=== PATIENT | male | born 1940 | race Caucasian/White ===

== ENCOUNTER 2019-03-09 15:37 | Inpatient (IN) | payer OTHER ==
[2019-03-09] VITALS (14 sets, daily range): BP systolic 90–182; BP diastolic 42–94
[~2019-03-09] VITALS: Ht 172.7 cm; Wt 121.9 kg
[~2019-03-09 15:37] MED LIST: ASPIR 8181 M1 PO; ASPIRIN325 PO; COLACE100 MG PO; COREG25 MG PO; COZAAR 50 MG TA50 M2 PO; CRESTOR10 MG PO; FISH OIL 1,001000 M2; FISH OIL 1,001000 M2 PO; FOLIC ACID0.4 MG PO; HUMALOG100 UNIT/1 SUBQ; LANTUSSOLASTAR SUBQ; LORTAB 5-325 M1 EACH PO; METFORMIN HCL500 MG PO; MIRALAX17 GM PO; MULTIVITAMIN PO; PACERONE 200 M200 M1 PO; VITAMIN B-12500 MCG PO
[2019-03-09] MEDS ORDERED: TRESIBA100 UNIT/1 SUBQ (15:48)
[2019-03-09] MEDS ORDERED: LASIX 40 MG TAB40 M2 PO (15:50)
[2019-03-09] MEDS ORDERED: NORVASC5 MG PO (15:50)
[2019-03-09] MEDS ORDERED: CRESTOR10 MG PO (15:50)
[2019-03-09] MEDS ORDERED: COZAAR 25 MG TA25 M2 PO (15:50)
[2019-03-09] MEDS ORDERED: OXYCODONE HCL 55 MG PO (15:51)
[2019-03-09] MEDS ORDERED: HUMALOG100 UNIT/1 SUBQ (15:52)
[2019-03-09] MEDS ORDERED: ASPIR 8181 M1 PO (15:53)
[2019-03-09] MEDS ORDERED: METFORMIN HCL500 MG PO (15:53)
[2019-03-09 16:04] LABS: ABSOLUTE BASOPHILS 0.1 thou/uL (0.0-0.2); ABSOLUTE EOSINOPHILS 0.3 thou/uL (0.0-0.7); ABSOLUTE MONOCYTES 0.7 thou/uL (0.0-1.2); ABSOLUTE NEUTROPHILS 2.7 thou/uL (1.6-8.1); HEMATOCRIT 33.8 % (42.0-52.0); HEMOGLOBIN 11.8 gm/dL (14.0-18.0); MCH 33.6 pg (26.0-34.0); MCHC 34.9 g/dL (28.0-37.0); MCV 96.1 fL (80.0-100.0); MONOCYTES 12.2 %; MPV 9.6 fl. (7.2-11.1); NUCLEATED RBCS 0 /100WBC; PLATELET COUNT* 194 thou/uL (150-400); POLYS 46.8 %; RBC 3.52 mil/uL (4.50-6.00); RDW-CV 14.8 % (10.5-14.5); WBC 5.8 thou/uL (4.0-11.0)
[2019-03-09 16:08] LABS: ANION GAP 9 mmol/L (7-16); BUN 20 mg/dL (7-18); CALCIUM 8.7 mg/dL (8.5-10.1); CHLORIDE 100 mmol/L (98-107); CO2 27 mmol/L (21-32); CREATININE 1.1 mg/dL (0.6-1.3); GLUCOSE 167 mg/dL (70-99); POTASSIUM 4.3 mmol/L (3.5-5.1); SODIUM 136 mmol/L (136-145)
[2019-03-09 16:15] LABS: PROTIME 10.7 Seconds (9.20-11.50)
[2019-03-09 16:19] LABS: ALBUMIN 3.3 g/dL (3.4-5.0); ALKALINE PHOSPHATASE 78 U/L (46-116); NT-PRO BRAIN NAT PEPTIDE 484 pg/mL (<300); SGOT 39 U/L (15-37); SGPT 42 U/L (30-65); TOTAL BILIRUBIN 0.3 mg/dL (<0.1-1.0); TOTAL PROTEIN 6.3 g/dL (6.4-8.2); TROPONIN-I LEVEL <0.06 ng/mL (<0.06)
[2019-03-09] MEDS ORDERED: UNICOMPLEX M TA1 TA1 PO (18:36)
[2019-03-09] MEDS ORDERED: VITAMIN D1000 UNI1 PO (18:37)
[2019-03-09] MEDS ORDERED: MIRALAX17 GM PO (18:37)
--- NOTE | 2019-03-09 19:38 | NUR ---
PT RECEIVED FROM ER AT 1800, A FIB WITH RATE OF 90s ON THE MONITOR, ALERT AND ORIENTED X4, WALKED UP TO THE BED FROM CART. VOIDED PER URINAL X2. ADMISSION PROCESS COMPLETED. DENIES PAIN.
[2019-03-10] VITALS (34 sets, daily range): BP systolic 104–172; BP diastolic 52–111
--- NOTE | 2019-03-10 06:50 | NUR ---
VSS, O2 SAT REMAINS >92% ON RA. PT AWAKENED EVERY 2-3 HOURS THROUGH THE NIGHT TO URINATE, TOTAL 2L URINE OUT. PT STATES HE USES BIPAP AT HS AT HOME AND HIS NOCTURIA IS SIGNIFICANTLY LESS WHEN HE USING HIS BIPAP. ENCOURAGED PT TO HAVE BRING BIPAP TONIGHT. PT HAS BEEN NPO SINCE MIDNIGHT. CALL LIGHT WITHIN REACH.
[2019-03-10 09:18] LABS: ABSOLUTE BASOPHILS 0.1 thou/uL (0.0-0.2); ABSOLUTE EOSINOPHILS 0.3 thou/uL (0.0-0.7); ABSOLUTE LYMPHOCYTES 1.1 thou/uL (0.8-5.3); ABSOLUTE MONOCYTES 0.5 thou/uL (0.0-1.2); ABSOLUTE NEUTROPHILS 2.6 thou/uL (1.6-8.1); BASOPHILS 1.1 %; EOSINOPHILS 5.9 %; HEMATOCRIT 37.2 % (42.0-52.0); HEMOGLOBIN 13.2 gm/dL (14.0-18.0); LYMPHOCYTES 24.2 %; MCH 33.9 pg (26.0-34.0); MCHC 35.6 g/dL (28.0-37.0); MCV 95.3 fL (80.0-100.0); MONOCYTES 10.4 %; MPV 8.9 fl. (7.2-11.1); NUCLEATED RBCS 0 /100WBC; PLATELET COUNT* 183 thou/uL (150-400); POLYS 58.4 %; RDW-CV 14.8 % (10.5-14.5); WBC 4.5 thou/uL (4.0-11.0)
[2019-03-10 09:32] LABS: ALBUMIN 3.9 g/dL (3.4-5.0); CALCIUM 9.6 mg/dL (8.5-10.1); CREATININE 0.9 mg/dL (0.6-1.3); TOTAL BILIRUBIN 0.4 mg/dL (<0.1-1.0); TOTAL PROTEIN 7.4 g/dL (6.4-8.2)
--- NOTE | 2019-03-10 11:50 | NUR ---
INT ROUNDS: MET WITH PT AND SPOUSE TO DISCUSS HOME SITUATION/DC PLANNING. PT ADMITTED WITH SEIZURE, HAS NEURO CONS. PT UP IN CHAIR, A/O, AT BEDSIDE. THEY LIVE IN [place] AT THE [facility]. PT IS INDEPENDENT WITH ADLS, USES CANE OR ROLLATER WALKER NEEDED. HE HAS HAD HH IN PAST AND BEEN TO SNF IN PAST ALSO. /JANNY IS DPOA. PT PLANS TO RETURN HOME AT DC. WILL FOLLOW
--- NOTE | 2019-03-10 18:52 | NUR ---
CARDIOLOGY CONSULTED, ICU MONITORING TODAY PER DR HALL. VSS. NO BRADYCARDIA. ECHO, EEG, CT HEAD AND MRI HEAD DONE. TOLERATING DIET. GOOD URINE OUTPUT.
[2019-03-11] VITALS (14 sets, daily range): BP systolic 128–175; BP diastolic 60–80
--- NOTE | 2019-03-11 10:10 | NUR ---
INT. ROUNDS: MET WITH PT, TO MOVE OUT OF ICU TODAY, POSSIBLE DC TOMORROW. PT PLANS TO RETURN HOME WITH . DISCUSSED POSSIBLE NEEDS INCLUDING HH, PT DECLINES ANY NEEDS AT THIS TIME. WILL FOLLOW
--- NOTE | 2019-03-11 17:23 | NUR ---
PT A&O X4. VSS. SAT UP IN THE RECLINER THE WHOLE DAY. TOLERATING DIET. BM TODAY. GOOD URINE OUTPUT. UP AD DEVAUGHN.
--- NOTE | 2019-03-11 19:51 | NUR ---
RECEIVED REPORT AND ASSUMED CARE. TRANSPORTED FROM ICU TO ROOM 210. VSS. CARDIAC MONITORING IN PLACE. ORIENTATED TO ROOM, CALL LIGHT, FALL POLICY. HOURLY ROUNDING COMPLETED AND ALL NEEDS MET.
[2019-03-12] VITALS: BP 173/80
[2019-03-12 04:00] VITALS: BP 158/62
--- NOTE | 2019-03-12 05:49 | NUR ---
PT SLEPT MOST OF SHIFT. ASSESSMENT DOCUMENTED. MEDS GIVEN PER E-OCT. IV'S PATENT. NO REPORTS OF PAIN THIS SHIFT. PT UP SBA TO BATHROOM WITH CANE. TELE MONITOR IN PLACE. WILL CONTINUE WITH PLAN OF CARE.
[2019-03-12 08:00] VITALS: BP 170/83
[2019-03-12] MEDS ORDERED: ELIQUIS5 MG PO (11:16)
[2019-03-12 11:19] VITALS: BP 170/83
[2019-03-12] MEDS ORDERED: PROPAFENONE 15150 MG PO (11:19)
--- NOTE | 2019-03-12 11:48 | NUR ---
RECEIVED REPORT FROM SILVIA HANKINS AND ASSUMED CARE OF PT @ 8573.PT IS A/OX4,VSS,TRACING SR WITH BBB ON THE MONITOR.NO C/O PAIN.PT IS CALM AND COOPERATIVE BUT ANXIOUS TO DISCHARGE.PT OK FOR DISCHARGE.DISCHARGE PAPERWORK COMPLETED AND GIVEN TO THE PT.SCRIPTS GIVEN WITH EDUCATION.CARDIOLOGY SAMPLES GIVEN TO PT.IV REMOVED X2.HEART MONITOR REMOVED AND RETURNED TO THE NURSING STATION.ALL PERSONAL BELONGINGS PACKED AND TAKEN WITH PT.PT WHEELED OUT BY NURSING STAFF TO PERSONAL VEHICLE.
== END 2019-03-12 12:09 | disposition home or self-care (01) | DRG 101 ==
LOC: M.ERS 15:37 → M.TBA-ER 16:25 → M.ICU 16:25 → M.2W 03-11 18:01
PROVIDERS: Internal Medicine; Personal Emergency Response Attendant; ADMIT Internal Medicine
DX: R56.9 Unspecified convulsions (principal); E66.9 Obesity, unspecified; M19.90 Unspecified osteoarthritis, unspecified site; E78.5 Hyperlipidemia, unspecified; I48.91 Unspecified atrial fibrillation; N40.0 Benign prostatic hyperplasia without lower urinary tract symptoms; G20 Parkinson's disease; I44.7 Left bundle-branch block, unspecified; I11.9 Hypertensive heart disease without heart failure; G47.33 Obstructive sleep apnea (adult) (pediatric); I49.5 Sick sinus syndrome; I25.10 Atherosclerotic heart disease of native coronary artery without angina pectoris; E11.42 Type 2 diabetes mellitus with diabetic polyneuropathy; I49.9 Cardiac arrhythmia, unspecified; I25.2 Old myocardial infarction; Z95.1 Presence of aortocoronary bypass graft; Z68.41 Body mass index [BMI] 40.0-44.9, adult; Z87.891 Personal history of nicotine dependence; Z85.51 Personal history of malignant neoplasm of bladder; Z85.828 Personal history of other malignant neoplasm of skin; Z85.72 Personal history of non-Hodgkin lymphomas; Z79.4 Long term (current) use of insulin; Z79.82 Long term (current) use of aspirin; Z79.899 Other long term (current) drug therapy; Z88.8 Allergy status to other drugs, medicaments and biological substances; Z82.49 Family history of ischemic heart disease and other diseases of the circulatory system

== ENCOUNTER 2019-03-17 10:14 | Inpatient (IN) | payer OTHER ==
[~2019-03-17] VITALS: Ht 152.4 cm; Wt 120.2 kg
[~2019-03-17 10:14] MED LIST changes: +COZAAR 25 MG TA25 M2 PO; +ELIQUIS5 MG PO; +LASIX 40 MG TAB40 M2 PO; +NORVASC5 MG PO; +OXYCODONE HCL 55 MG PO; +PROPAFENONE 15150 MG PO; +TRESIBA100 UNIT/1 SUBQ; +UNICOMPLEX M TA1 TA1 PO; +VITAMIN D1000 UNI1 PO
[2019-03-17 10:28] VITALS: BP 141/59
[2019-03-17 10:45] LABS: HEMOGLOBIN 12.1 gm/dL (14.0-18.0); MCH 33.4 pg (26.0-34.0); MCHC 34.5 g/dL (28.0-37.0); MCV 96.6 fL (80.0-100.0); MPV 8.6 fl. (7.2-11.1); NUCLEATED RBCS 0 /100WBC; PLATELET COUNT* 188 thou/uL (150-400); RBC 3.63 mil/uL (4.50-6.00); RDW-CV 14.1 % (10.5-14.5); WBC 5.5 thou/uL (4.0-11.0)
[2019-03-17 10:56] LABS: ANION GAP 6 mmol/L (7-16); BUN 27 mg/dL (7-18); CALCIUM 8.8 mg/dL (8.5-10.1); CHLORIDE 99 mmol/L (98-107); CO2 29 mmol/L (21-32); CREATININE 1.4 mg/dL (0.6-1.3); GLUCOSE 132 mg/dL (70-99); POTASSIUM 4.7 mmol/L (3.5-5.1); SODIUM 134 mmol/L (136-145)
[2019-03-17 10:59] LABS: APTT 29.9 Seconds (25.0-31.3); INR 1.1; PROTIME 10.9 Seconds (9.20-11.50)
[2019-03-17 11:07] LABS: ALBUMIN 3.6 g/dL (3.4-5.0); ALKALINE PHOSPHATASE 80 U/L (46-116); LIPASE 160 U/L (73-393); MAGNESIUM 2.8 mg/dL (1.8-2.4); NT-PRO BRAIN NAT PEPTIDE 512 pg/mL (<300); SGOT 19 U/L (15-37); SGPT 32 U/L (30-65); TOTAL BILIRUBIN 0.4 mg/dL (<0.1-1.0); TOTAL PROTEIN 6.7 g/dL (6.4-8.2); TROPONIN-I LEVEL <0.06 ng/mL (<0.06)
[2019-03-17 11:25] LABS: ABSOLUTE EOSINOPHILS 0.3 thou/uL (0.0-0.7); ABSOLUTE LYMPHOCYTES 1.1 thou/uL (0.8-5.3); ABSOLUTE MONOCYTES 0.7 thou/uL (0.0-1.2); ABSOLUTE NEUTROPHILS 3.4 thou/uL (1.6-8.1); PLATELET ESTIMATE ADEQUATE
[2019-03-17 12:02] LABS: CK-MB MASS 1.5 ng/mL (<0.5-3.6)
[2019-03-17 14:38] VITALS: BP 186/82
[2019-03-17 15:20] VITALS: BP 178/84
--- NOTE | 2019-03-17 18:45 | NUR ---
PT ADMITTED FROM ER. AOX4 , 1ST DEGREE AV BLOCK BBB ON ARCHITECT MARINE. HEART RATE IN THE 60S. VS TAKEN . BP 178/84. PT STATES HE HAS TAKEN HIS MORNIGN BP MEDICATIONS THIS AM. PT IS ASYMPTOMATIC. HAD DINER AND HAS GOOD APPETITE. ADMISSION HX AND ASSESSMENT PERFORMED . NS INFUSING AT 100 PER HOUR IN L AC. PT COMPLAINS OF DIZZINESS. FALL PRECAUTION IN PLACE. PLAN FOR PACEMAKER TOMORROW SO PT WILL BE NPO AFTER MIDNIGHT. WILL CONTINUE TO MONITOR
[2019-03-17 20:00] VITALS: BP 183/84
[2019-03-18] VITALS (9 sets, daily range): BP systolic 128–199; BP diastolic 60–98
--- NOTE | 2019-03-18 10:29 | EKG ---
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: : 1940 Requested By: Rai Elias Order Number: [id number] MD: Blair Thompson Measurements Intervals [place] Rate: 40 P: [place]: QRS: -7 QRSD: 186 T: 108 QT: 545 QTc: 445 Interpretive Statements Junctional rhythm Left bundle branch block Compared to ECG 03/11/2019 09:19:56 Junctional rhythm now present Sinus rhythm no longer present First degree AV block no longer present Electronically Signed On 03-18-2019 10:29:02 CDT by Blair Thompson [email or web address] <ELECTRONICALLY SIGNED> By: Blair Thompson MD, FACC 03/18/19 1029 1047 1047 Blair Thompson MD, [facility] /EPI
--- NOTE | 2019-03-18 13:20 | NUR ---
Pt is A&O. Resides at home with . Independent. Pt has a walker and cane that he uses for mobility, dependent upon where he is and how the room is set up. Pt has a bipap through [facility] Pt. Hx of HH, does not recall the name of the agency. Hx of acute rehab. No hx of SNF. Goal is home at tn, no needs anticipated.
--- NOTE | 2019-03-18 15:49 | NUR ---
ASSUMED CARE OF PT AROUND 0730 THIS AM. REFER TO ASSESSMENT. PT NPO TODAY FOR PACEMAKER PLACEMENT. CURRENTLY AT APPLICATION OPERATIONS ENGINEER/ IR AT THIS TIME. NO EPISODES OF BRADYCARDIA OR LIGHTHEADEDNESS THIS SHIFT. NO OTHER CONCERNS AT THIS TIME. CLWR. WCTM.
--- NOTE | 2019-03-18 17:16 | CARD ---
[address] [address] CARDIAC CATH REPORT Name: SORAIDA BELTRAN Room: [address] IN [facility]#: [id number] Admission: 03/17/19 Attend Phys: Lázaro Ponce Discharge: Date of : 40 Report #: [id number] THIS REPORT FOR: //name// APPROVED REPORT Study performed: 03/18/2019 14:56:30 Patient Status: In-Patient Room #: Event Personnel: Blair Thompson Preparole Counseling Aide, Richa Cantor RN RN, Gonzalo KyleIS Monitor, Lynette Rizo RTR Scrub Exam: Insertion of Dual Chamber Permanent Pacemaker Indications: Sick Sinus Syndrome/Tachy Talha Syndrome The patient is a 78 year-old male with a history of Sick Sinus Syndrome. Conscious Sedation Fentanyl 75 mcg PPM inserted Implanted Devices: [employer] Systemsroni[employer]Matic Eluna 8 DRT pro-MRI, model #658534, serial #[id number] dual-chamber pulse generator. Biotronik Solia S 60, model #239803, serial #[id number] particularly. Biotronik Solia S 53, model #072667, serial #[id number] atrial lead. Procedure The patient underwent informed consent. We discussed the details of the procedure including the risks, which include, but not limited to bleeding, infection, vascular damage, cardiac perforation, and pneumothorax. After informed consent was obtained the area of the left chest was prepped and draped in sterile fashion. Local anesthesia was achieved with 1% lidocaine. Next after an initial incision was made a device pocket was formed over the left pectoralis muscle using electrocautery and blunt dissection. Next using a micropuncture kit the left subclavian vein was accessed. A safety J guidewire was advanced the area of the right atrium under fluoroscopic guidance. A single stick technique was utilized and a second safety J guidewire placed. A tear-away introducer was advanced over one of the guidewires. The other guidewire was externally fixed with a Aleta forcep. The dilator and guidewire were removed and the ventricular lead advanced to the right ventricle under fluoroscopic guidance. The lead was actively fixed. Thresholds were checked [place] [address] CARDIAC CATH REPORT Name: SORAIDA BELTRAN Room: [address] IN [facility]#: [id number] Admission: 03/17/19 Attend Phys: Lázaro Ponce Discharge: Date of : 40 Report #: [id number] satisfactory. There was no diaphragmatic pacing with maximum output pacing. Next a second tear-away introducer was advanced over the remaining guidewire. The dilator and guidewire were removed and an atrial lead advanced to an area lateral wall of the right atrium. The lead was actively fixed. Thresholds were checked and deemed to be satisfactory. There was no phrenic nerve stimulation with maximum output pacing. The tear-away issues was then removed. Once adequate slack was assured in both the atrial and ventricular leads and leads were then secured within the device pocket using the designated cuff and 0 silk suture in interrupted stitches. The device pocket was then flushed with antibiotic solution. Next a dual-chamber pulse generator was attached to the atrial and ventricular leads. The pulse generator and redundant leads were then placed within the device pocket. The deep tissues were closed with interrupted stitches of 2-0 Vicryl. The skin incision was then closed with a single subcuticular stitch of 4-0 Vicryl. Several Steri-Strips were placed across the incision. A sterile Telfa dressing was then covered with a Tegaderm. Patient was returned to his room in stable condition. Electrode Parameters P Wave: 1.6 mV R Wave: 10.5 mV Atrial Threshold: 1.0 V at 0.40 ms. Ventricular Threshold: 0.8 V at 0.40 ms. Atrial Resistance: 468 ohms. Ventricular Resistance: 702 ohms. Conclusion 1. Sick sinus syndrome. 2. Successful placement of a dual-chamber pacemaker with atrial and ventricular lead placement. Recommendations 1. Follow-up site check in one week. 2. Follow-up with device interrogation 2 months. <ELECTRONICALLY SIGNED> By: Blair Thompson MD, FACC 03/18/19 1715 14 171Michaerod Thompson MD, FACC /INF
--- NOTE | 2019-03-18 17:50 | NUR ---
PT BACK TO FLOOR FROM PACEMAKER PLACEMENT AT 1655.
[2019-03-19] VITALS: BP 199/90
[2019-03-19 04:00] VITALS: BP 158/69
[2019-03-19 08:00] VITALS: BP 155/71
[2019-03-19 12:23] VITALS: BP 155/71
[2019-03-19] MEDS ORDERED: ONDANSETRON HCL4 M2 PO (12:56)
[2019-03-19] MEDS ORDERED: COREG6.25 MG PO (13:02)
--- NOTE | 2019-03-19 13:28 | NUR ---
ASSUMED PT CARE REPORT RECEIVED FROM NURSE.PT IS AOX4 SR BBB ON RETAIL ATTENDANT. ON RA. PT OUT TO BED TO CHAIR. ARM SLING IN PLACE. NO COMPLAINT. DISCHARGE ORDER RECEIVED. DISCHARGE INSTRUCTION SOY. PT LEFT FLOOR AT 1325 ACCOMPANIED BY AND VOLUNTEER. WILL CONTINUE TO MONITOR
--- NOTE | 2019-03-20 09:02 | EKG ---
[place] [address] ELECTROCARDIOGRAM REPORT Name: SORAIDA BELTRAN Room: [address] DIS IN M.R.#: [id number] Admission: 03/17/19 Attend Phys: Lázaro Ponce Discharge: 03/19/19 Date of : 40 Report #: [id number] THIS REPORT FOR: //name// [facility] Test Date: 2019-03-19 Test Time: 05:30:19 Pat Name: SORAIDA BELTRAN Department: Room: [address] Gender: M Exercise Physiologist Certified: [id number] : 1940 Requested By: Blair Thompson Order Number: [id number] MD: Blair Thompson Measurements Intervals [place] Rate: 77 P: 44 GA: 206 QRS: 16 QRSD: 174 T: 90 QT: 453 QTc: 513 Interpretive Statements Sinus rhythm Left bundle branch block Compared to ECG 03/17/2019 10:47:42 Heart rate improved Electronically Signed On 03-20-2019 9:02:46 CDT by Blair Thompson [email or web address] <ELECTRONICALLY SIGNED> By: Blair Thompson MD, [facility] 03/20/19 0902 0530 0530 Blair Thompson MD, [facility] /EPI
== END 2019-03-19 13:23 | disposition home or self-care (01) | DRG 243 ==
LOC: M.ERS 10:14 → M.2W 11:19 → M.TBA-ER 11:19 → M.2W 14:53
PROVIDERS: Family Medicine; ADMIT Internal Medicine
PROC: 02HK3JZ Insertion of Pacemaker Lead into Right Ventricle, Percutaneous Approach (ICD-10-PCS; principal; 2019-03-18)
PROC: 02H63JZ Insertion of Pacemaker Lead into Right Atrium, Percutaneous Approach (ICD-10-PCS; principal; 2019-03-18)
PROC: 0JH606Z Insertion of Pacemaker, Dual Chamber into Chest Subcutaneous Tissue and Fascia, Open Approach (ICD-10-PCS; principal; 2019-03-18)
DX: I49.5 Sick sinus syndrome (principal); N17.9 Acute kidney failure, unspecified; D68.59 Other primary thrombophilia; J98.11 Atelectasis; I48.0 Paroxysmal atrial fibrillation; I44.7 Left bundle-branch block, unspecified; G20 Parkinson's disease; I10 Essential (primary) hypertension; M19.90 Unspecified osteoarthritis, unspecified site; E11.42 Type 2 diabetes mellitus with diabetic polyneuropathy; I25.10 Atherosclerotic heart disease of native coronary artery without angina pectoris; E78.5 Hyperlipidemia, unspecified; N40.0 Benign prostatic hyperplasia without lower urinary tract symptoms; Z86.73 Personal history of transient ischemic attack (TIA), and cerebral infarction without residual deficits; Z79.84 Long term (current) use of oral hypoglycemic drugs; Z85.51 Personal history of malignant neoplasm of bladder; Z85.828 Personal history of other malignant neoplasm of skin; Z79.82 Long term (current) use of aspirin; Z79.4 Long term (current) use of insulin; Z79.899 Other long term (current) drug therapy; Z88.8 Allergy status to other drugs, medicaments and biological substances; Z95.1 Presence of aortocoronary bypass graft; Z82.49 Family history of ischemic heart disease and other diseases of the circulatory system; Y92.89 Other specified places as the place of occurrence of the external cause

== ENCOUNTER 2019-03-21 12:26 | Inpatient (IN) | payer OTHER ==
[~2019-03-21] VITALS: Ht 172.7 cm; Wt 120.4 kg
[~2019-03-21 12:26] MED LIST changes: +COREG6.25 MG PO; +ONDANSETRON HCL4 M2 PO
[2019-03-21 12:32] VITALS: BP 157/76
[2019-03-21 13:06] LABS: ABSOLUTE BASOPHILS 0.1 thou/uL (0.0-0.2); ABSOLUTE EOSINOPHILS 0.4 thou/uL (0.0-0.7); ABSOLUTE MONOCYTES 0.7 thou/uL (0.0-1.2); ABSOLUTE NEUTROPHILS 4.5 thou/uL (1.6-8.1); BASOPHILS 0.9 %; EOSINOPHILS 5.7 %; HEMATOCRIT 36.2 % (42.0-52.0); HEMOGLOBIN 12.4 gm/dL (14.0-18.0); LYMPHOCYTES 15.5 %; MCH 33.4 pg (26.0-34.0); MCHC 34.2 g/dL (28.0-37.0); MCV 97.6 fL (80.0-100.0); MONOCYTES 10.7 %; MPV 9.5 fl. (7.2-11.1); NUCLEATED RBCS 0 /100WBC; PLATELET COUNT* 205 thou/uL (150-400); POLYS 67.2 %; RBC 3.71 mil/uL (4.50-6.00); RDW-CV 14.2 % (10.5-14.5); WBC 6.7 thou/uL (4.0-11.0)
[2019-03-21 13:13] LABS: ANION GAP 10 mmol/L (7-16); BUN 43 mg/dL (7-18); CALCIUM 8.7 mg/dL (8.5-10.1); CHLORIDE 96 mmol/L (98-107); CO2 27 mmol/L (21-32); CREATININE 1.9 mg/dL (0.6-1.3); GLUCOSE 156 mg/dL (70-99); POTASSIUM 4.8 mmol/L (3.5-5.1); SODIUM 133 mmol/L (136-145)
[2019-03-21 13:24] LABS: ALBUMIN 3.8 g/dL (3.4-5.0); ALKALINE PHOSPHATASE 83 U/L (46-116); LIPASE 153 U/L (73-393); MAGNESIUM 3.1 mg/dL (1.8-2.4); NT-PRO BRAIN NAT PEPTIDE 318 pg/mL (<300); SGOT 20 U/L (15-37); SGPT 23 U/L (30-65); TOTAL BILIRUBIN 0.7 mg/dL (<0.1-1.0); TOTAL PROTEIN 7.1 g/dL (6.4-8.2); TROPONIN-I LEVEL <0.06 ng/mL (<0.06)
--- NOTE | 2019-03-21 14:47 | NUR ---
NURSE TO NURSE REPORT GIVEN TO NHI JEWELL WHO IS TO ASSUME PT CARE INPATIENT NURSE.
[2019-03-21 14:48] VITALS: BP 140/64
[2019-03-21 15:10] VITALS: BP 139/65
--- NOTE | 2019-03-21 15:13 | EKG ---
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 Operator: [facility] : 1940 Requested By: Epifanio Soliman Order Number: [id number] MD: Steve Brown Measurements Intervals [place] Rate: 85 P: 214 HI: 197 QRS: 89 QRSD: 192 T: -35 QT: 447 QTc: 532 Interpretive Statements Sinus or ectopic atrial rhythm LBBB Prolonged QT interval Compared to ECG 03/19/2019 05:30:19 Ectopic atrial rhythm now present Prolonged QT interval now present Electronically Signed On 03-21-2019 15:13:32 CDT by Steve Brown [email or web address] <ELECTRONICALLY SIGNED> By: Steve Brown MD, [facility] 03/21/19 1513 1237 1237 Steve Brown MD, [facility] /EPI
[2019-03-21 15:30] VITALS: BP 139/65
--- NOTE | 2019-03-21 15:45 | NUR ---
TO IR VIA BED
[2019-03-21 16:34] VITALS: BP 154/71
--- NOTE | 2019-03-21 16:34 | NUR ---
PATIENT RETURNING FROM IR VIA BED. CHEST TUBE IN PLACE TO LEFT CHEST - CONNECTED TO PLUERAL VAC ATRIUM, CONNECTED TO 20 CM WALL SUCTION. NO SIGN OF RESPIRATORY DISTRESS - 02 ON 3L PER NC - 02 SAT 98%. HOB ELEVATED, CALL LIGHT WITHIN REACH.
[2019-03-21 20:00] VITALS: BP 146/63
[2019-03-22] VITALS: BP 142/61
--- NOTE | 2019-03-22 03:01 | NUR ---
ASSUMED PT CARE AT APPROX 1930. PT IS AWAKE AND ORIENTED X4. VSS ON 3L OF O2. WITH PACED VENTRICULR COMPLEXES ON TELE. ASSESSMENT DONE AND CHARTED. LEFT LOWER CHEST TUBE IN PLACE CONNECTED TO ATRIUM, WITH -20 WALL SUCTION, INTACT AND WITH INTERMITTENT TIDALLING NOTED. NO OUTPUT SEEN THIS SHIFT. PT DENIES PAIN. CALL LIGHT WITHIN REACH. FALL PRECAUTIONS IN PLACE. HOURLY ROUNDING DONE FOR PT SAFETY.
[2019-03-22 03:51] VITALS: BP 149/70
[2019-03-22 04:42] LABS: HEMATOCRIT 30.2 % (42.0-52.0); HEMOGLOBIN 10.6 gm/dL (14.0-18.0); MCH 34.1 pg (26.0-34.0); MCV 97.3 fL (80.0-100.0); MPV 9.4 fl. (7.2-11.1); RBC 3.1 mil/uL (4.50-6.00); RDW-CV 14.6 % (10.5-14.5); WBC 5.2 thou/uL (4.0-11.0)
[2019-03-22 04:54] LABS: CALCIUM 8.6 mg/dL (8.5-10.1); CREATININE 1.4 mg/dL (0.6-1.3); POTASSIUM 4.3 mmol/L (3.5-5.1)
--- NOTE | 2019-03-22 07:15 | NUR ---
CHANGE OF SHIFT BEDSIDE REPORT GIVEN PATIENT SEEN AT BEDSIDE IN BED WATCHING TV ASSUMED PATIENT CARE
[2019-03-22 08:04] VITALS: BP 155/64
--- NOTE | 2019-03-22 09:45 | NUR ---
PATIENT CHANGED TO [place] STATUS HEART MONITOR REMOVED
--- NOTE | 2019-03-22 10:15 | NUR ---
MET WITH PT TO DISCUSS HOME SITUATION/DC PLANNING. PT KNOWN TO CM, IS 3RD ADMIT THIS MONTH. WAS JUST DC'D 03/19 AFTER PACEMAKER PLACEMENT, READMITTED WITH PNEUMOTHORAX. PT LIVE WITH AT THE [facility] IN [facility]. HE IS FAIRLY INDEPENDENT, USES CANE OR WALKER, BIPAP THRU [facility] PAT[facility]. PT HAS HAD HH IN PAST. DENIES NEEDS AT THIS TIME, PLANS TO RETURN HOME WITH AT [place]. WILL FOLLOW
[2019-03-22 15:46] VITALS: BP 173/73
[2019-03-22 20:00] VITALS: BP 158/78
[2019-03-23] VITALS: BP 145/73
--- NOTE | 2019-03-23 02:49 | NUR ---
ASSUMED PT CARE AT APPROX 1930. PT IS AWAKE AND ORIENTED X4. VSS ON 3L/NC. TITRATED O2 TO 1L/NC, NO DESATURATIONS NOTED. LEFT LOWER LUNG CHEST TUBE INTACT CONNECTED TO ATRIUM WITH SMALL SEROUS OUTPUT. PT DENIES PAIN. PT IS ABLE TO SLEEP MOST OF THE NIGHT. CALL LIGHT WITHIN REACH. HOURLY ROUNDING DONE FOR PT SAFETY.
[2019-03-23 08:25] VITALS: BP 177/83
--- NOTE | 2019-03-23 09:00 | NUR ---
ASSUMED CARE AFTER REPORT AT 0730. A&OX4, ABLE TO COMMUNICATE NEEDS TO STAFF. MED/SURG STATUS. PACEMAKER INCISION SITE C/D/I COVERED WITH STERI STRIPS. NO C/O PAIN, NAUSEA, SOA OR OTHER DISTRESS. UP WITH ASSIST. CALL LIGHT IN REACH. HOURLY ROUNDING FOR SAFETY AND PATIENT NEEDS.
[2019-03-23 12:24] VITALS: BP 165/83
[2019-03-23 16:00] VITALS: BP 158/71
[2019-03-23 19:45] VITALS: BP 180/70
[2019-03-24] VITALS: BP 150/69
[2019-03-24 04:00] VITALS: BP 172/76
--- NOTE | 2019-03-24 06:58 | NUR ---
PATIENT PROGRESSING TOWARDS GOALS: PATIENT DENIES PAIN AND SHORTNESS OF AIR. CHEST XRAY COMPLETED, REFER TO RESULTS. CHEST TUBE IN PLACE, WATER SEAL. DRESSING C/D/I. PATIENT ANTICIPATING DC OF THE CHEST TUBE TODAY. CALL LIGHT WITHIN REACH
[2019-03-24 08:00] VITALS: BP 177/85
--- NOTE | 2019-03-24 08:00 | NUR ---
ASSUMED PT CARES AT 0730, PT IS NOTED TO BE RESTING IN BED WITH CALL LIGHT IN REACH. PT EXPRESSES WANTING TO GET MORNING MEDS AND BE DISCHARGED RIGHT AWAY. PT IS A/OX4, DENIES AND PAIN OR DISCOMFORT. NO SOA, CHEST TUBE SITE APPEARS DRY AND INTACT. WILL MONITOR THIS SHIFT
--- NOTE | 2019-03-24 10:17 | CON ---
[address] [address] CONSULTATION Name: SORAIDA BELTRAN Room: [address] IN M.R.#: [id number] Admission: 03/21/19 Attend Phys: Soraida Day MD Discharge: Date of : 40 Report #: [id number] THIS REPORT FOR: //name// CC: Rafa Thompson REASON FOR CONSULTATION: Pneumothorax. HISTORY OF PRESENT ILLNESS: This is a 78-year-old male patient who actually was at this facility recently when he was admitted with dizziness. Last Sunday, he required permanent pacemaker, placed by Cardiology because of symptomatic bradycardia. Per the record, access was difficult. A followup chest x-ray following the procedure showed small left pneumothorax. He was asymptomatic. He was discharged home; however, a couple of days later, he became really short of breath and came back to the ER. He tells me that it was difficult for him to ambulate. He was short of breath, although no cough. He has a remote history of smoking, but does not wear oxygen or use inhalers at home. In the ER, he had increased left-sided pneumothorax. He underwent placement of small caliber chest tube by IR. The pneumothorax actually had expanded. This morning, he looks comfortable. He remains on 2 liter oxygen. He denied any chest pain. The chest tube was connected to suction. No air leak was noted in the chest tube. Please note, he has a past medical history of AFib, diabetes mellitus, hyperlipidemia, hypertension, coronary artery disease, status post CABG. He denied any recent trauma. He denied any previous similar episodes. ALLERGIES: METOPROLOL, BEATA INHIBITORS. MEDICATIONS: He is on folic acid, aspirin, losartan, insulin, Colace, amlodipine, Crestor, Lasix, multivitamin, Coreg. FAMILY HISTORY: Positive for heart disease, coronary artery disease. REVIEW OF SYSTEMS: GENERAL: He denied fever, chills, diaphoresis. HEAD AND NECK: He denied dizziness, headache, blurring of vision. RESPIRATORY: As above. CARDIOVASCULAR: He has no chest pain. No edema, no palpitation. GASTROINTESTINAL: He denied abdominal pain, nausea or vomiting, change in bowel habits, bleeding from any orifice. GENITOURINARY: He denied any dysuria, frequency, urgency. MUSCULOSKELETAL: He denied any deformity, leg pains or calf pain. All systems reviewed with the patient and negatives as mentioned above. PAST MEDICAL HISTORY: Includes diabetes mellitus, hypertension, obstructive sleep apnea, hyperlipidemia, history of stroke, history of bladder cancer, skin cancer. He has large cell lymphoma, peripheral neuropathy, Parkinson's, [place] [address] CONSULTATION Name: SORAIDA BELTRAN Room: [address] IN ..#: [id number] Admission: 03/21/19 Attend Phys: Soraida Day MD Discharge: Date of : 40 Report #: [id number] apnea. PAST SURGICAL HISTORY: Includes pacemaker as mentioned above. SOCIAL HISTORY: He has remote smoking history, does not drink alcohol excessively. Does not abuse drugs. PHYSICAL EXAMINATION: VITAL SIGNS: He was on 2 L oxygen with saturation more than 90%, at 96%, blood pressure 149/70, breathing 20 times per minute, pulse rate 66, and temperature 37. GENERAL: Comfortable, lying in bed, no distress. Speaks in full sentences. Speech is clear. HEENT: Head normocephalic, atraumatic. EYES: Pupils are reactive to light. ORAL CAVITY: Moist mucous membrane. Mallampati of 2-3. NECK: Supple. Full range of movement. Trachea central. No palpable lymph node. CHEST: Air movement heard bilaterally equally. No subcutaneous emphysema noted. He has left-sided chest tube in place, no air leak. HEART: S1, S2, no murmur. ABDOMEN: Obese, soft, lax, benign, nontender. Positive bowel sounds. No masses felt, no rebound, no rigidity. EXTREMITIES: Lower extremity, no edema, no calf tenderness. NEUROLOGIC: Moving 4 extremities spontaneously. No focal weakness. Cranial nerves grossly normal. SKIN: Normal for age and race, no rash. LYMPHATICS: No palpable lymph node. LABORATORY DATA: His initial chest x-ray upon presentation to the ER, showed large left-sided pneumothorax, described as moderate, although increased from the previous chest x-ray. He underwent chest tube placement per IR. A followup chest x-ray this morning showed resolution of the pneumothorax. IMPRESSION: 1. Left-sided pneumothorax. 2. Status post small caliber chest tube placement. 3. Status post pacemaker placement. 4. History of diabetes mellitus. 5. Hypertension. 6. Atrial fibrillation. PLAN: He had a small caliber chest tube placed by IR. I would keep the chest tube under suction for today. Keep oxygen flow. Repeat chest x-ray in the morning. If stable, we will consider water seal. Depending on the finding of the chest x-ray in the coming few days, will decide about taking the chest tube [address] [address] CONSULTATION Name: RUBYSOARIDA Klein Room: [address] [facility] IN M.R.#: [id number] Admission: 03/21/19 Attend Phys: Soraida Day MD Discharge: Date of : 40 Report #: [id number] out. Meanwhile, I would continue the pain management. We will continue to follow along with you. Thank you for the consult. <ELECTRONICALLY SIGNED> By: Carina Laws MD 03/24/19 1017 0731 [id number] Laws MD /leonora
[2019-03-24 12:04] VITALS: BP 196/93
[2019-03-24 16:00] VITALS: BP 189/88
--- NOTE | 2019-03-24 18:46 | NUR ---
PT HAD CT SCAN AM OF THIS SHIFT, CHEST TUBE SITE DRESSING IS DRY AND INTACT. PT REMAINS COMPLIAN WITH CARES, CONTINUES TO REST, STATES HE WOULD LIKE TO GO HOME. PT IS ABLE TO MAKE NEEDS KNOWN. PT DENIES PAIN OR DISCOMFORT THIS SHIFT. CALL LIGHT IS IN REACH.
[2019-03-24 19:45] VITALS: BP 172/83
[2019-03-25] VITALS (7 sets, daily range): BP systolic 107–171; BP diastolic 59–81
--- NOTE | 2019-03-25 05:06 | NUR ---
PATIENT PROGRESSING TOWARDS GOALS: PATIENT DENIES SHORTNESS OF AIR AND PAIN THIS SHIFT. O2 SATURATION MAINTAINED >92% ON 2L O2 NC. CHEST TUBE REMAINS TO LLL, TO SUCTION. MINIMAL SEROUS DRAINAGE NOTED THIS SHIFT. PATIENT IS EAGER TO GET CHEST TUBE DISCONTINUED AND BE DISCHARGED HOME. REASSURANCE AND COMFORT PROVIDED. PATIENT VERBALIZES UNDERSTANDING OF SITUATION AND TREATMENT. CALL LIGHT WITHIN REACH
--- NOTE | 2019-03-25 07:20 | NUR ---
CHANGE OF SHIFT, BEDSIDE REPORT GIVEN PATIENT SEEN AT BEDSIDE, IN BED ASLEEP ASSUMED PATIENT CARE
--- NOTE | 2019-03-25 11:39 | NUR ---
Plan dc to home tomorrow, no needs anticipated.
[2019-03-26] VITALS: BP 167/76
[2019-03-26 04:00] VITALS: BP 175/82
--- NOTE | 2019-03-26 06:27 | NUR ---
ASSUMED CARE OF PT AFTER REPORT AT 1930. PT A&OX4. VSS. PHYSICAL ASSESSMENT COMPLETED AND CHARTED. PT ON O2 AT 2L NC. PT TRACING SR/1ST DEG/BBB ON TELE. PT UPSTANDBY. CHEST TUBE MAINATINED CLAMPED. DENIES ANY PAIN OR SOA. PT ABLE TO SLEEP WELL ON BED. CALL LIGHT WITHIN REACH.
[2019-03-26 08:00] VITALS: BP 129/75
[2019-03-26] MEDS ORDERED: CARVEDILOL12.5 MG PO (10:05)
--- NOTE | 2019-03-26 11:42 | NUR ---
Pt discharging to home today, outpt PT orders faxed to [facility] outpt rehab. in room.
[2019-03-26 12:23] VITALS: BP 148/71
[2019-03-26 14:08] VITALS: BP 169/78
--- NOTE | 2019-03-26 16:00 | NUR ---
ASSUMED PT CARE AT 0730, FULL ASSESMENT DONE CHARTED. PT A/O X4, DENIES PAIN, DENIES SOA. PT ON 2L O2 THIS AM SATS WERE 100%. REMOVED O2 WITH RECHECK AT 98%. PT UP AD DEVAUGHN WITH MINIMAL ASSISTANCE IN AND OUT OF BED. CHEST TUBE TO LEFT FLANK CLAMMPED. TRAVEL NURSE REMOVED IT LATE MORNING. PT TOLERATED WELL. CHEST X RAY DONE AND RESULTS COMMUNICATED TO PHYSICIAN. DISCHARGE ORDERS RECEIVED. REVIEWED THE DISCHARGE ORDERS WITH PT AND , BOTH VERBALIZED UNDERSTANDING. PT LEFT UNIT WITH AND BELONGINGS.
== END 2019-03-26 14:35 | disposition home or self-care (01) | DRG 199 ==
LOC: M.ERS 12:26 → M.2W 13:51 → M.TBA-ER 13:51 → M.2W 15:09
PROVIDERS: Emergency Medicine; ADMIT Internal Medicine
PROC: 0W9B30Z Drainage of Left Pleural Cavity with Drainage Device, Percutaneous Approach (ICD-10-PCS; principal; 2019-03-21)
DX: S27.0XXA Traumatic pneumothorax, initial encounter (principal); N17.0 Acute kidney failure with tubular necrosis; I10 Essential (primary) hypertension; E78.5 Hyperlipidemia, unspecified; M19.90 Unspecified osteoarthritis, unspecified site; N40.0 Benign prostatic hyperplasia without lower urinary tract symptoms; E11.42 Type 2 diabetes mellitus with diabetic polyneuropathy; G20 Parkinson's disease; I48.91 Unspecified atrial fibrillation; G47.33 Obstructive sleep apnea (adult) (pediatric); I25.10 Atherosclerotic heart disease of native coronary artery without angina pectoris; Z95.0 Presence of cardiac pacemaker; Z86.73 Personal history of transient ischemic attack (TIA), and cerebral infarction without residual deficits; Z85.828 Personal history of other malignant neoplasm of skin; Z95.1 Presence of aortocoronary bypass graft; Z85.51 Personal history of malignant neoplasm of bladder; Z85.72 Personal history of non-Hodgkin lymphomas; Z79.4 Long term (current) use of insulin; Z79.82 Long term (current) use of aspirin; Z79.899 Other long term (current) drug therapy; Z88.8 Allergy status to other drugs, medicaments and biological substances; Z82.49 Family history of ischemic heart disease and other diseases of the circulatory system; X58.XXXA Exposure to other specified factors, initial encounter; Y93.89 Activity, other specified; Y92.89 Other specified places as the place of occurrence of the external cause; Y99.8 Other external cause status

== ENCOUNTER 2019-04-28 18:03 | Emergency (ER) | payer OTHER ==
[~2019-04-28] VITALS: Ht 172.7 cm; Wt 122.5 kg
[~2019-04-28 18:03] MED LIST changes: +CARVEDILOL12.5 MG PO
[2019-04-28] MEDS ORDERED: KEFLEX500 M1 PO (19:20)
[2019-04-28] MEDS ORDERED: CENTANY30 GM TOP (19:20)
[2019-04-28 19:45] VITALS: BP 148/88
== END 2019-04-28 19:47 | disposition home or self-care (01) ==
LOC: M.ERS 18:03
DX: S80.812A Abrasion, left lower leg, initial encounter (principal); L03.116 Cellulitis of left lower limb; I10 Essential (primary) hypertension; M19.90 Unspecified osteoarthritis, unspecified site; E78.5 Hyperlipidemia, unspecified; G47.30 Sleep apnea, unspecified; E11.42 Type 2 diabetes mellitus with diabetic polyneuropathy; Z86.73 Personal history of transient ischemic attack (TIA), and cerebral infarction without residual deficits; Z85.51 Personal history of malignant neoplasm of bladder; Z85.828 Personal history of other malignant neoplasm of skin; Z79.4 Long term (current) use of insulin; Z88.8 Allergy status to other drugs, medicaments and biological substances; X58.XXXA Exposure to other specified factors, initial encounter; Y93.89 Activity, other specified; Y92.89 Other specified places as the place of occurrence of the external cause; Y99.8 Other external cause status

== ENCOUNTER 2019-05-01 15:28 | Emergency (ER) | payer OTHER ==
[~2019-05-01] VITALS: Ht 172.7 cm; Wt 122.5 kg
[~2019-05-01 15:28] MED LIST changes: +CENTANY30 GM TOP; +KEFLEX500 M1 PO
[2019-05-01 17:30] LABS: ABSOLUTE BASOPHILS 0.1 thou/uL (0.0-0.2); ABSOLUTE EOSINOPHILS 0.4 thou/uL (0.0-0.7); ABSOLUTE NEUTROPHILS 3.2 thou/uL (1.6-8.1); MCH 33.4 pg (26.0-34.0); NUCLEATED RBCS 0 /100WBC; WBC 5.5 thou/uL (4.0-11.0)
[2019-05-01 17:33] LABS: ABSOLUTE LYMPHOCYTES 1.1 thou/uL (0.8-5.3); ABSOLUTE MONOCYTES 0.8 thou/uL (0.0-1.2); BASOPHILS 1.1 %; EOSINOPHILS 6.8 %; HEMATOCRIT 35.9 % (42.0-52.0); HEMOGLOBIN 12.6 gm/dL (14.0-18.0); LYMPHOCYTES 19.7 %; MCV 95.5 fL (80.0-100.0); MONOCYTES 13.9 %; MPV 8.8 fl. (7.2-11.1); PLATELET COUNT* 198 thou/uL (150-400); POLYS 58.5 %; RBC 3.76 mil/uL (4.50-6.00)
[2019-05-01] MEDS ORDERED: AUGMENTIN 875-1 EACH PO (17:42)
[2019-05-01 17:56] LABS: CALCIUM 9.5 mg/dL (8.5-10.1); CREATININE 1.2 mg/dL (0.6-1.3); POTASSIUM 4.5 mmol/L (3.5-5.1)
[2019-05-01 18:12] VITALS: BP 170/77
== END 2019-05-01 18:13 | disposition home or self-care (01) ==
LOC: M.ERS 15:28
PROVIDERS: Personal Emergency Response Attendant
DX: L03.116 Cellulitis of left lower limb (principal); I10 Essential (primary) hypertension; E78.5 Hyperlipidemia, unspecified; Z85.828 Personal history of other malignant neoplasm of skin; E11.40 Type 2 diabetes mellitus with diabetic neuropathy, unspecified; G47.30 Sleep apnea, unspecified; Z95.0 Presence of cardiac pacemaker; Z86.73 Personal history of transient ischemic attack (TIA), and cerebral infarction without residual deficits; Z88.8 Allergy status to other drugs, medicaments and biological substances; Z85.51 Personal history of malignant neoplasm of bladder

== ENCOUNTER → 2019-05-06 | Outpatient (CLI) | payer OTHER ==
[~2019-05-06] MED LIST changes: +AUGMENTIN 875-1 EACH PO
== END ==
LOC: M.WC 08:45
DX: E11.622 Type 2 diabetes mellitus with other skin ulcer (principal); L97.822 Non-pressure chronic ulcer of other part of left lower leg with fat layer exposed; E11.40 Type 2 diabetes mellitus with diabetic neuropathy, unspecified; E78.5 Hyperlipidemia, unspecified; G47.30 Sleep apnea, unspecified; G20 Parkinson's disease; I89.0 Lymphedema, not elsewhere classified; I10 Essential (primary) hypertension; Z86.73 Personal history of transient ischemic attack (TIA), and cerebral infarction without residual deficits; Z85.51 Personal history of malignant neoplasm of bladder; Z85.828 Personal history of other malignant neoplasm of skin; Z87.891 Personal history of nicotine dependence; Z95.1 Presence of aortocoronary bypass graft; Z79.4 Long term (current) use of insulin; Z79.82 Long term (current) use of aspirin

== ENCOUNTER 2019-05-08 08:36 | Inpatient (IN) | payer OTHER ==
[~2019-05-08] VITALS: Ht 172.7 cm; Wt 122.5 kg
[2019-05-08 08:44] VITALS: BP 149/61
[2019-05-08 09:29] LABS: ABSOLUTE EOSINOPHILS 0.3 thou/uL (0.0-0.7); ABSOLUTE LYMPHOCYTES 1.3 thou/uL (0.8-5.3); ABSOLUTE MONOCYTES 0.6 thou/uL (0.0-1.2); ABSOLUTE NEUTROPHILS 2.2 thou/uL (1.6-8.1); BASOPHILS 0.8 %; EOSINOPHILS 6.5 %; HEMATOCRIT 32.1 % (42.0-52.0); HEMOGLOBIN 11.4 gm/dL (14.0-18.0); MCH 33.9 pg (26.0-34.0); MCHC 35.6 g/dL (28.0-37.0); MCV 95.4 fL (80.0-100.0); MONOCYTES 13.5 %; MPV 8.3 fl. (7.2-11.1); NUCLEATED RBCS 0 /100WBC; PLATELET COUNT* 166 thou/uL (150-400); POLYS 50.2 %; RBC 3.37 mil/uL (4.50-6.00); RDW-CV 14.3 % (10.5-14.5); WBC 4.5 thou/uL (4.0-11.0)
[2019-05-08 09:42] LABS: ALBUMIN 3.6 g/dL (3.4-5.0); CREATININE 1.1 mg/dL (0.6-1.3); POTASSIUM 4.5 mmol/L (3.5-5.1); TOTAL BILIRUBIN 0.3 mg/dL (<0.1-1.0); TOTAL PROTEIN 6.8 g/dL (6.4-8.2)
[2019-05-08 10:08] LABS: MACROCYTES 1+; PLATELET ESTIMATE ADEQUATE
[2019-05-08 11:30] VITALS: BP 188/83
[2019-05-08 11:56] VITALS: BP 144/88
[2019-05-08 12:30] VITALS: BP 156/67
[2019-05-08 15:49] LABS: % SATURATION 20 % (20-39); IRON 58 ug/dL (50-175)
[2019-05-08 22:11] VITALS: BP 158/61
[2019-05-09 15:30] VITALS: BP 121/61; BP 172/68
[2019-05-09 20:18] VITALS: BP 174/69
[2019-05-10 03:48] LABS: HEMATOCRIT 32.4 % (42.0-52.0); HEMOGLOBIN 11.1 gm/dL (14.0-18.0); MCH 32.8 pg (26.0-34.0); MCHC 34.3 g/dL (28.0-37.0); MCV 95.8 fL (80.0-100.0); MPV 8.9 fl. (7.2-11.1); RBC 3.38 mil/uL (4.50-6.00); RDW-CV 14.3 % (10.5-14.5); WBC 4.8 thou/uL (4.0-11.0)
[2019-05-10 04:08] LABS: ALBUMIN 3.2 g/dL (3.4-5.0); CREATININE 1.1 mg/dL (0.6-1.3); MAGNESIUM 2.1 mg/dL (1.8-2.4); POTASSIUM 4.2 mmol/L (3.5-5.1); TOTAL BILIRUBIN 0.4 mg/dL (<0.1-1.0); TOTAL PROTEIN 6.3 g/dL (6.4-8.2)
[2019-05-10 08:05] VITALS: BP 172/74
--- NOTE | 2019-05-10 08:34 | CON ---
[address] [address] CONSULTATION Name: SORAIDA BELTRAN Room: [address] IN M.R.#: [id number] Admission: 05/08/19 Attend Phys: Stefanie Arambula Discharge: Date of : 40 Report #: [id number] THIS REPORT FOR: //name// CC: Rafa Cao DATE OF SERVICE: 05/09/2019 INFECTIOUS DISEASE CONSULTATION ATTENDING PHYSICIAN: Ermias Cao MD REASON FOR EVALUATION: Right lower extremity skin and soft tissue infection with cellulitis. HISTORY OF PRESENT ILLNESS: Chart reviewed, patient examined. This is a 78-year-old gentleman with a significant lumbar related pain. He does walk with a cane or wheeled walker who had injured his left lower extremity, striking his pretibial site developed a wound, had been followed in the wound care center undergoing debridement and wound care compression; however, had presented to the Emergency Room with complaints of right lower extremity pain. He noted onset of swelling for no apparent reason. Has been complicated by increasing pain, inflammatory-type eruption, was evaluated and felt to have cellulitis and was subsequently admitted and placed on parenteral therapy. Of note, he has diabetes mellitus as well as history of lymphoma that was manifested in his right lower extremity. They had removed inguinal lymph nodes to confirm the diagnosis, likely has venous stasis insufficiency with low-grade chronic dermatitis as well. He denies systemic illness, no fevers or chills. Appetite has been generally good. No pulmonary or gastrointestinal related complaints. He had been placed empirically as an outpatient on cephalexin as well as Augmentin, which he felt was not effective. On admission, he was placed on cefazolin. He is not encephalopathic. ALLERGIES: TO BEATA INHIBITORS, METOPROLOL, CETIRIZINE, LORATADINE AND FEXOFENADINE. CURRENT MEDICATIONS: Include cefazolin. Medicines at home include carvedilol, folic acid, aspirin, cholecalciferol, insulin lispro, cyanocobalamin, losartan, amlodipine, rosuvastatin and furosemide. PAST MEDICAL HISTORY: Includes diabetes mellitus, history of hypertension, osteoarthritis, hyperlipidemia, previous stroke, BPH, bladder cancer, skin cancer, large cell lymphoma, peripheral neuropathy, Parkinson's, sleep apnea, has a pacemaker. SOCIAL HISTORY: Nonsmoker. Frequent ethanol, [place] [address] CONSULTATION Name: SORAIDA BELTRAN Room: [address]#: [id number] Admission: 05/08/19 Attend Phys: Stefanie Arambula Discharge: Date of : 40 Report #: [id number] FAMILY HISTORY: Noncontributory. REVIEW OF SYSTEMS: As above. PHYSICAL EXAMINATION: GENERAL: He is pleasant, alert and cooperative, hzxm-md-kfhahnam distress, appears to be reasonably well-nourished. VITAL SIGNS: Temperature 97.9, pulse 74, respirations 18, blood pressure 158/61. SKIN: Warm, dry, no rashes. HEENT: Normocephalic. Extraocular muscles are intact. NECK: Supple. LUNGS: Generally clear to auscultation. HEART: Regular. I do not appreciate a murmur. ABDOMEN: Obese, soft and nontender. There is no palpable back tenderness. EXTREMITIES: He has got a multilayered wrap on his left lower extremity. Right lower extremity has moderate inflammatory changes noted to below the knee, it is not exquisitely tender. There are no bullous lesions, no ulcers. Distal extremities, diminished pulses. GENITOURINARY AND RECTAL: Deferred. LABORATORY DATA: Blood cultures sterile thus far. Sed rate of 25. CRP of less than 2. CBC: White count of 4.5, hemoglobin and hematocrit of 11.4 and 32.1, platelets of 166. He did have some large reactive lymphs. Electrolytes: Sodium 135, potassium 4.5, chloride 101, bicarbonate is 28, BUN and creatinine of 23 and 1.1 and glucose of 133. LFTs unremarkable. Albumin of 3.6. Total protein of 6.8. Lactic acid of 1.4. ASSESSMENT AND PLAN: Right lower extremity inflammatory eruption, skin and soft tissue infection with cellulitis. We will continue the cefazolin. Elevate, we will add compression. He notes he is chronically on a compression hose. He has good understanding and it is about the critical importance of minimizing edema of his lower extremities, certainly pending at risk for possibility of recurrent lower extremity cellulitis. We will monitor expectantly. <ELECTRONICALLY SIGNED> By: Bong Espana MD 05/10/19 0834 1018 [id number] Espana MD /leonora
[2019-05-10] MEDS ORDERED: KEFLEX500 M1 PO (14:54)
[2019-05-10 14:56] VITALS: BP 172/74
== END 2019-05-10 15:10 | disposition home or self-care (01) | DRG 603 ==
LOC: M.ERS 08:36 → M.TBA-ER 09:32 → M.3W 09:32
PROVIDERS: Emergency Medicine Emergency Medical Services; ADMIT Internal Medicine
DX: L03.115 Cellulitis of right lower limb (principal); I10 Essential (primary) hypertension; M19.90 Unspecified osteoarthritis, unspecified site; E78.5 Hyperlipidemia, unspecified; N40.0 Benign prostatic hyperplasia without lower urinary tract symptoms; D64.9 Anemia, unspecified; E11.42 Type 2 diabetes mellitus with diabetic polyneuropathy; Z95.0 Presence of cardiac pacemaker; Z88.6 Allergy status to analgesic agent; Z86.73 Personal history of transient ischemic attack (TIA), and cerebral infarction without residual deficits; Z88.8 Allergy status to other drugs, medicaments and biological substances; Z79.899 Other long term (current) drug therapy; Z88.1 Allergy status to other antibiotic agents; Z79.82 Long term (current) use of aspirin; Z23 Encounter for immunization

== ENCOUNTER → 2019-05-12 | Outpatient (CLI) | payer OTHER | LOC: M.WC 05:06 | DX: E11.622 Type 2 diabetes mellitus with other skin ulcer (principal); L97.822 Non-pressure chronic ulcer of other part of left lower leg with fat layer exposed; I89.0 Lymphedema, not elsewhere classified; E11.40 Type 2 diabetes mellitus with diabetic neuropathy, unspecified; E78.5 Hyperlipidemia, unspecified; G47.30 Sleep apnea, unspecified; G20 Parkinson's disease; I10 Essential (primary) hypertension; Z86.73 Personal history of transient ischemic attack (TIA), and cerebral infarction without residual deficits; Z85.51 Personal history of malignant neoplasm of bladder; Z85.828 Personal history of other malignant neoplasm of skin; Z87.891 Personal history of nicotine dependence ==

== ENCOUNTER → 2019-05-19 | Outpatient (CLI) | payer OTHER | LOC: M.WC 01:45 | DX: E11.622 Type 2 diabetes mellitus with other skin ulcer (principal); L97.822 Non-pressure chronic ulcer of other part of left lower leg with fat layer exposed; I89.0 Lymphedema, not elsewhere classified; E11.40 Type 2 diabetes mellitus with diabetic neuropathy, unspecified; E78.5 Hyperlipidemia, unspecified; G20 Parkinson's disease; G47.30 Sleep apnea, unspecified; I10 Essential (primary) hypertension; Z87.891 Personal history of nicotine dependence; Z86.73 Personal history of transient ischemic attack (TIA), and cerebral infarction without residual deficits; Z85.51 Personal history of malignant neoplasm of bladder ==

== ENCOUNTER → 2019-05-26 | Outpatient (CLI) | payer OTHER | LOC: M.WC 04:48 | DX: E11.622 Type 2 diabetes mellitus with other skin ulcer (principal); L97.821 Non-pressure chronic ulcer of other part of left lower leg limited to breakdown of skin; S81.802D Unspecified open wound, left lower leg, subsequent encounter; I89.0 Lymphedema, not elsewhere classified; E11.40 Type 2 diabetes mellitus with diabetic neuropathy, unspecified; E78.5 Hyperlipidemia, unspecified; G20 Parkinson's disease; G47.30 Sleep apnea, unspecified; I10 Essential (primary) hypertension; Z86.73 Personal history of transient ischemic attack (TIA), and cerebral infarction without residual deficits; Z85.51 Personal history of malignant neoplasm of bladder; Z85.828 Personal history of other malignant neoplasm of skin; Z87.891 Personal history of nicotine dependence; X58.XXXD Exposure to other specified factors, subsequent encounter ==

== ENCOUNTER → 2019-06-02 | Outpatient (CLI) | payer OTHER | LOC: M.WC 01:08 | DX: E11.622 Type 2 diabetes mellitus with other skin ulcer (principal); L97.222 Non-pressure chronic ulcer of left calf with fat layer exposed; S81.802D Unspecified open wound, left lower leg, subsequent encounter; I89.0 Lymphedema, not elsewhere classified; E11.40 Type 2 diabetes mellitus with diabetic neuropathy, unspecified; E78.5 Hyperlipidemia, unspecified; G20 Parkinson's disease; G47.30 Sleep apnea, unspecified; I10 Essential (primary) hypertension; Z86.73 Personal history of transient ischemic attack (TIA), and cerebral infarction without residual deficits; Z85.51 Personal history of malignant neoplasm of bladder; Z85.828 Personal history of other malignant neoplasm of skin; Z87.891 Personal history of nicotine dependence; X58.XXXD Exposure to other specified factors, subsequent encounter ==

== ENCOUNTER → 2019-06-09 | Outpatient (CLI) | payer OTHER | LOC: M.WC 02:32 | DX: E11.622 Type 2 diabetes mellitus with other skin ulcer (principal); I87.312 Chronic venous hypertension (idiopathic) with ulcer of left lower extremity; L97.222 Non-pressure chronic ulcer of left calf with fat layer exposed; S81.802D Unspecified open wound, left lower leg, subsequent encounter; I89.0 Lymphedema, not elsewhere classified; E11.40 Type 2 diabetes mellitus with diabetic neuropathy, unspecified; E78.5 Hyperlipidemia, unspecified; G20 Parkinson's disease; G47.30 Sleep apnea, unspecified; Z86.73 Personal history of transient ischemic attack (TIA), and cerebral infarction without residual deficits; Z85.51 Personal history of malignant neoplasm of bladder; Z85.828 Personal history of other malignant neoplasm of skin; Z87.891 Personal history of nicotine dependence; X58.XXXD Exposure to other specified factors, subsequent encounter ==

== ENCOUNTER → 2019-06-16 | Outpatient (CLI) | payer OTHER | LOC: M.WC 04:31 | DX: E11.622 Type 2 diabetes mellitus with other skin ulcer (principal); L97.821 Non-pressure chronic ulcer of other part of left lower leg limited to breakdown of skin; I89.0 Lymphedema, not elsewhere classified; I87.2 Venous insufficiency (chronic) (peripheral); I10 Essential (primary) hypertension; E11.40 Type 2 diabetes mellitus with diabetic neuropathy, unspecified; E78.5 Hyperlipidemia, unspecified; G20 Parkinson's disease; G47.30 Sleep apnea, unspecified; Z87.891 Personal history of nicotine dependence; Z86.73 Personal history of transient ischemic attack (TIA), and cerebral infarction without residual deficits; Z85.51 Personal history of malignant neoplasm of bladder; Z85.828 Personal history of other malignant neoplasm of skin ==

== ENCOUNTER → 2019-06-23 | Outpatient (CLI) | payer OTHER | LOC: M.WC 01:48 | DX: E11.622 Type 2 diabetes mellitus with other skin ulcer (principal); L97.822 Non-pressure chronic ulcer of other part of left lower leg with fat layer exposed; I89.0 Lymphedema, not elsewhere classified; I10 Essential (primary) hypertension; E11.40 Type 2 diabetes mellitus with diabetic neuropathy, unspecified; E78.5 Hyperlipidemia, unspecified; G20 Parkinson's disease; G47.30 Sleep apnea, unspecified; Z86.73 Personal history of transient ischemic attack (TIA), and cerebral infarction without residual deficits; Z85.51 Personal history of malignant neoplasm of bladder; Z85.828 Personal history of other malignant neoplasm of skin; Z87.891 Personal history of nicotine dependence ==

== ENCOUNTER → 2019-06-30 | Outpatient (CLI) | payer OTHER | LOC: M.WC 04:36 | DX: E11.622 Type 2 diabetes mellitus with other skin ulcer (principal); L97.822 Non-pressure chronic ulcer of other part of left lower leg with fat layer exposed; I89.0 Lymphedema, not elsewhere classified; I10 Essential (primary) hypertension; E11.40 Type 2 diabetes mellitus with diabetic neuropathy, unspecified; E78.5 Hyperlipidemia, unspecified; G20 Parkinson's disease; G47.30 Sleep apnea, unspecified; Z86.73 Personal history of transient ischemic attack (TIA), and cerebral infarction without residual deficits; Z85.51 Personal history of malignant neoplasm of bladder; Z85.828 Personal history of other malignant neoplasm of skin; Z87.891 Personal history of nicotine dependence ==

== ENCOUNTER → 2019-07-07 | Outpatient (CLI) | payer OTHER | LOC: M.WC 01:32 | DX: E11.622 Type 2 diabetes mellitus with other skin ulcer (principal); L97.822 Non-pressure chronic ulcer of other part of left lower leg with fat layer exposed; I89.0 Lymphedema, not elsewhere classified; I10 Essential (primary) hypertension; E11.40 Type 2 diabetes mellitus with diabetic neuropathy, unspecified; E78.5 Hyperlipidemia, unspecified; G20 Parkinson's disease; G47.30 Sleep apnea, unspecified; Z86.73 Personal history of transient ischemic attack (TIA), and cerebral infarction without residual deficits; Z85.51 Personal history of malignant neoplasm of bladder; Z85.828 Personal history of other malignant neoplasm of skin; Z87.891 Personal history of nicotine dependence ==

== ENCOUNTER → 2019-07-14 | Outpatient (CLI) | payer OTHER | LOC: M.WC 09:00 | DX: E11.622 Type 2 diabetes mellitus with other skin ulcer (principal); L97.822 Non-pressure chronic ulcer of other part of left lower leg with fat layer exposed; I89.0 Lymphedema, not elsewhere classified; I10 Essential (primary) hypertension; E78.5 Hyperlipidemia, unspecified; G47.30 Sleep apnea, unspecified; G20 Parkinson's disease; Z87.891 Personal history of nicotine dependence; Z86.73 Personal history of transient ischemic attack (TIA), and cerebral infarction without residual deficits; Z85.51 Personal history of malignant neoplasm of bladder; Z85.828 Personal history of other malignant neoplasm of skin ==

== ENCOUNTER 2019-07-27 15:35 | Observation (INO) | payer OTHER ==
[~2019-07-27] VITALS: Ht 172.7 cm; Wt 124.7 kg
[2019-07-27 15:40] VITALS: BP 180/91
[2019-07-27 16:13] LABS: BE 0.5 mmol/L (-2 to +3); PCO2 34.6 mmHg (35.0-45.0); PO2 62.5 mmHg (75.0-100.0); pH 7.457 (7.340-7.450)
[2019-07-27 16:38] LABS: ABSOLUTE BASOPHILS 0.1 thou/uL (0.0-0.2); ABSOLUTE EOSINOPHILS 0.3 thou/uL (0.0-0.7); ABSOLUTE LYMPHOCYTES 0.7 thou/uL (0.8-5.3); ABSOLUTE MONOCYTES 0.7 thou/uL (0.0-1.2); ABSOLUTE NEUTROPHILS 7.5 thou/uL (1.6-8.1); BASOPHILS 0.6 %; HEMATOCRIT 36.1 % (42.0-52.0); HEMOGLOBIN 12.6 gm/dL (14.0-18.0); LYMPHOCYTES 7.7 %; MCH 32.6 pg (26.0-34.0); MCHC 34.9 g/dL (28.0-37.0); MCV 93.4 fL (80.0-100.0); MONOCYTES 7.4 %; MPV 9.1 fl. (7.2-11.1); NUCLEATED RBCS 0 /100WBC; PLATELET COUNT* 195 thou/uL (150-400); POLYS 81.3 %; RBC 3.86 mil/uL (4.50-6.00); RDW-CV 14.9 % (10.5-14.5); WBC 9.2 thou/uL (4.0-11.0)
[2019-07-27 16:42] LABS: URINE BILIRUBIN NEGATIVE (Negative); URINE BLOOD 2+ (Negative); URINE CLARITY CLEAR; URINE COLOR YELLOW; URINE GLUCOSE-RANDOM NEGATIVE (Negative); URINE KETONES NEGATIVE (Negative); URINE LEUKOCYTES-REFLEX NEGATIVE (Negative); URINE PROTEIN 2+ (Negative); URINE SPECIFIC GRAVITY 1.025 (1.005-1.030); URINE UROBILINOGEN 0.2 E.U./dl (0.2-1.0)
[2019-07-27 16:47] LABS: URINE NITRITE-REFLEX POSITIVE (Negative)
[2019-07-27 16:47] LABS: CALCIUM 9.7 mg/dL (8.5-10.1); CREATININE 1.1 mg/dL (0.6-1.3); POTASSIUM 4.3 mmol/L (3.5-5.1)
[2019-07-27 16:49] LABS: PROTIME 10.4 Seconds (9.20-11.50)
[2019-07-27 16:53] LABS: INFLUENZA A ANTIGEN Negative (Negative); INFLUENZA B ANTIGEN Negative (Negative)
[2019-07-27 16:57] LABS: SQUAMOUS 0-3 Few /LPF (0-3)
[2019-07-27 16:58] LABS: CASTS None Seen /LPF (None Seen); CRYSTALS None Seen /LPF (None Seen); URINE RBC 3-10 Few /HPF (0-2)
[2019-07-27 16:58] LABS: TOTAL BILIRUBIN 0.6 mg/dL (<0.1-1.0); TOTAL PROTEIN 7.6 g/dL (6.4-8.2)
[2019-07-27 16:59] LABS: BACTERIA-REFLEX >30 Many /HPF (None Seen); URINE WBC-REFLEX 6-15 Few /HPF (0-5)
[2019-07-27 19:19] VITALS: BP 178/85
[2019-07-27 20:00] VITALS: BP 196/86
[2019-07-28] VITALS: BP 180/59
[2019-07-28 04:00] VITALS: BP 136/59
[2019-07-28 08:35] VITALS: BP 127/57
[2019-07-28] MEDS ORDERED: MEDROLDOSEPACK PO (09:02)
[2019-07-28] MEDS ORDERED: MUCINEX600 MG PO (09:02)
[2019-07-28] MEDS ORDERED: LEVAQUIN 750 M750 MG PO (09:02)
[2019-07-28] MEDS ORDERED: PROAIR HFA8.5 GM INH (09:02)
--- NOTE | 2019-07-28 09:09 | EKG ---
[place] [address] ELECTROCARDIOGRAM REPORT Name: SORAIDA BELTRAN Room: [address] M.R.#: [id number] Admission: 07/27/19 Attend Phys: Soraida Day MD Discharge: Date of : 40 Report #: [id number] THIS REPORT FOR: //name// [facility] ED Test Date: 2019-07-27 Test Time: 15:55:27 Pat Name: SORAIDA BELTRAN Department: Room: [facility] Gender: M Client Services Associate: [facility] : 1940 Requested By: Leny Pena Order Number: [id number] MD: Rafa Wright Measurements Intervals [place] Rate: 95 P: RI: QRS: 34 QRSD: 167 T: 99 QT: 402 QTc: 506 Interpretive Statements sinus rhythm LBBB Compared to ECG 03/21/2019 12:37:17 no change Electronically Signed On 07-28-2019 9:08:42 FIELD TECHNICAL ASSISTANT by Rafa Wright [email or web address] <ELECTRONICALLY SIGNED> By: Rafa Wright MD, [facility] 07/28/19 0908 1555 1555 Rafa Wright MD, FACC /EPI
[2019-07-28 11:24] VITALS: BP 148/55
[2019-07-28 13:20] VITALS: BP 153/86
[2019-07-28 14:46] VITALS: BP 153/86
== END 2019-07-28 15:54 | disposition home or self-care (01) ==
LOC: M.ERS 15:35 → M.2W 18:55 → M.TBA-ER 18:55 → M.2W 18:55
PROVIDERS: Personal Emergency Response Attendant; ADMIT Internal Medicine
DX: J20.9 Acute bronchitis, unspecified (principal); G89.29 Other chronic pain; I25.10 Atherosclerotic heart disease of native coronary artery without angina pectoris; I48.91 Unspecified atrial fibrillation; I50.32 Chronic diastolic (congestive) heart failure; E11.40 Type 2 diabetes mellitus with diabetic neuropathy, unspecified; N40.0 Benign prostatic hyperplasia without lower urinary tract symptoms; J96.01 Acute respiratory failure with hypoxia; Z85.51 Personal history of malignant neoplasm of bladder; Z22.39 Carrier of other specified bacterial diseases

== ENCOUNTER 2019-10-02 02:47 | Observation (INO) | payer MEDICARE ==
[~2019-10-02] VITALS: Ht 172.7 cm; Wt 121.6 kg
[2019-10-02] VITALS (9 sets, daily range): BP systolic 148–181; BP diastolic 65–87
[~2019-10-02 02:47] MED LIST changes: +LEVAQUIN 750 M750 MG PO; +MEDROLDOSEPACK PO; +MUCINEX600 MG PO; +PROAIR HFA8.5 GM INH
[2019-10-02 03:08] LABS: HEMATOCRIT 34.5 % (42.0-52.0); MCH 32.3 pg (26.0-34.0); MCHC 34.7 g/dL (28.0-37.0); MPV 8.9 fl. (7.2-11.1); NUCLEATED RBCS 0 /100WBC; PLATELET COUNT* 153 thou/uL (150-400); RBC 3.71 mil/uL (4.50-6.00); WBC 4.8 thou/uL (4.0-11.0)
[2019-10-02 03:27] LABS: CREATININE 1.1 mg/dL (0.6-1.3); POTASSIUM 4.5 mmol/L (3.5-5.1)
[2019-10-02 03:30] LABS: PROTIME 10.4 Seconds (9.20-11.50)
[2019-10-02 03:37] LABS: ALBUMIN 3.6 g/dL (3.4-5.0); TOTAL BILIRUBIN 0.3 mg/dL (<0.1-1.0)
[2019-10-02 04:45] LABS: URINE BILIRUBIN NEGATIVE (Negative); URINE BLOOD TRACE (Negative); URINE CLARITY CLEAR; URINE COLOR YELLOW; URINE GLUCOSE-RANDOM NEGATIVE (Negative); URINE KETONES NEGATIVE (Negative); URINE LEUKOCYTES-REFLEX NEGATIVE (Negative); URINE NITRITE-REFLEX NEGATIVE (Negative); URINE PROTEIN 1+ (Negative); URINE UROBILINOGEN 0.2 E.U./dl (0.2-1.0)
[2019-10-02 05:21] LABS: ABSOLUTE EOSINOPHILS 0.6 thou/uL (0.0-0.7); ABSOLUTE LYMPHOCYTES 1.7 thou/uL (0.8-5.3); ABSOLUTE MONOCYTES 0.5 thou/uL (0.0-1.2); ABSOLUTE NEUTROPHILS 2.1 thou/uL (1.6-8.1); ATYPICAL LYMPHS 2 %
[2019-10-02 05:22] LABS: ANISOCYTOSIS 1+; PLATELET ESTIMATE ADEQUATE; POIKILOCYTOSIS 1+
[2019-10-02 09:46] LABS: CHOLESTEROL 151 mg/dL (<200); HDL CHOLESTEROL 58 mg/dL (>40); LDL CHOLESTEROL 57 mg/dL (<100); SERUM ASSESSMENT Clear; TC:HDL 2.6 Ratio (Not establshd); TRIGLYCERIDE 180 mg/dL (<150); VLDL 36 mg/dL (<40)
--- NOTE | 2019-10-02 09:55 | EKG ---
[place] [address] ELECTROCARDIOGRAM REPORT Name: SORAIDA BELTRAN Room: [address] ADM IN M.R.#: [id number] Admission: 10/02/19 Attend Phys: Max pepe Sa Discharge: Date of : 40 Date of Service: 10/02/19 0251 Report #: [id number] THIS REPORT FOR: //name// [facility] ED Test Date: 2019-10-02 Test Time: 02:51:14 Pat Name: SORAIDA BELTRAN Department: Room: [facility] Gender: M Event Executive: : 1940 Requested By: La Smith Order Number: [id number] MD: Rafa Wright Measurements Intervals [place] Rate: 80 P: 65 NC: 175 QRS: 2 QRSD: 192 T: 120 QT: 428 QTc: 494 Interpretive Statements Sinus rhythm Left bundle branch block Artifact in lead(s) I,II,aVR,V1 Compared to ECG 07/27/2019 15:55:27 No significant changes Electronically Signed On 10-02-2019 9:54:42 KAITARA TARAKA by Rafa Wright [email or web address] <ELECTRONICALLY SIGNED> By: Rafa Wright MD, FACC 10/02/19 0954 025 025 Rafa Wright MD, FAC /EPI
--- NOTE | 2019-10-02 15:50 | 2DMMODE ---
[place] [address] 2 D/M-MODE ECHOCARDIOGRAM Name: SORAIDA BELTRAN Room: [address] IN .R.#: [id number] Admission: 10/02/19 Attend Phys: Max pepe Sa Discharge: Date of : 40 Date of Service: 10/02/19 1548 Report #: [id number] THIS REPORT FOR: cc: Rafa Wagner MD, David L. MD Liston, Michael J. MD [facility] ~ APPROVED REPORT Study performed: 10/02/2019 11:16:09 EXAM: Comprehensive 2D, Doppler, and color-flow Echocardiogram Patient Location: In-Patient Room #: [facility] Status: routine BSA: 2.30 HR: 74 bpm BP: 173/78 mmHg Rhythm: NSR Other Information Study Quality: Good Indications Chest Pain 2D Dimensions IVSd: 17.21 (7-11mm) LVOT Diam: 23.71 (18-24mm) LVDd: 56.95 mm PWd: 14.18 (7-11mm) Ascending Ao: 37.70 (22-36mm) LVDs: 33.41 (25-40mm) Aortic Root: 35.63 mm Volumes Left Atrial Volume (Systole) LA ESV Index: 43.60 mL/m2 Aortic Valve AoV Peak Adrian.: 1.64 m/s AO Peak Gr.: 10.79 mmHg LVOT Max P.20 mmHg AO Mean Gr.: 6.02 mmHg LVOT Mean P.66 mmHg LVOT Max V: 0.89 m/s AO V2 VTI: 36.74 cm LVOT Mean V: 0.60 m/s SAI (VTI): 2.56 cm2 LVOT V1 VTI: 21.27 [place] [address] 2 D/M-MODE ECHOCARDIOGRAM Name: SORAIDA BELTRAN Room: [address] IN .R.#: [id number] Admission: 10/02/19 Attend Phys: Max pepe Sa Discharge: Date of : 40 Date of Service: 10/02/19 1548 Report #: [id number] Mitral Valve E/A Ratio: 1.32 MV Decel. Time: 198.91 ms MV E Max Adrian.: 0.97 m/s MV PHT: 57.68 ms MVA (PHT): 3.81 cm2 TDI E/Lateral E': 12.13 E/Medial E': 16.17 Medial E' Adrian.: 0.06 m/s Lateral E' Adrian.: 0.08 m/s Pulmonary Valve PV Peak Adrian.: 0.98 m/s PV Peak Gr.: 3.87 mmHg Tricuspid Valve RAP Estimate: 5.00 mmHg TR Peak Gr.: 37.47 mmHg RVSP: 42.00 mmHg PA Pressure: 42.00 mmHg Left Ventricle Left ventricle is at the upper limits of normal. Regional wall motion abnormalities are noted. Moderate concentric left ventricular hypertrophy. Left ventricular systolic function is normal. LVEF is 50-55%. Severe diastolic dysfunction is present (restrictive filling). Right Ventricle Right ventricle is mildly dilated. The right ventricular systolic function is normal. Pacemaker lead is present in the right ventricle. Atria Left atrium is moderately dilated. Right atrium is moderately dilated. Aortic Valve Mild aortic valve sclerosis. No aortic regurgitation is present. There is no aortic valvular stenosis. Mitral Valve There is mitral annular calcification. Mild mitral regurgitation. No evidence of mitral valve stenosis. Tricuspid Valve The tricuspid valve is normal in structure. Trace tricuspid regurgitation. Moderate pulmonary hypertension. The RVSP is 40-45 [place] [address] 2 D/M-MODE ECHOCARDIOGRAM Name: SORAIDA BELTRAN Room: [address] IN ..#: [id number] Admission: 10/02/19 Attend Phys: Max pepe Sa Discharge: Date of : 40 Date of Service: 10/02/19 1548 Report #: [id number]. Pulmonic Valve The pulmonary valve is normal in structure. Trace pulmonic regurgitation. Great Vessels The aortic root is normal in size. IVC is normal in size and collapses >50% with inspiration. Pericardium There is no pericardial effusion. <Conclusion> Left ventricle is at the upper limits of normal. Moderate concentric left ventricular hypertrophy. Left ventricular systolic function is normal. LVEF is 50-55%. Severe diastolic dysfunction is present (restrictive filling). Right ventricle is mildly dilated. Pacemaker lead is present in the right ventricle. Left atrium is moderately dilated. Right atrium is moderately dilated. Mild aortic valve sclerosis. There is no aortic valvular stenosis. Mild mitral regurgitation. Trace tricuspid regurgitation. Moderate pulmonary hypertension. The RVSP is 40-45 mmHg. IVC is normal in size and collapses >50% with inspiration. <ELECTRONICALLY SIGNED> By: Blair Thompson MD, FACC 10/02/19 1548 1548 1548 Blair Thompson MD, FACC /INF
[2019-10-03 05:00] VITALS: BP 172/71
[2019-10-03 05:09] LABS: HEMATOCRIT 32.4 % (42.0-52.0); HEMOGLOBIN 11.4 gm/dL (14.0-18.0); MCH 32.5 pg (26.0-34.0); MCHC 35.1 g/dL (28.0-37.0); MCV 92.6 fL (80.0-100.0); MPV 9.3 fl. (7.2-11.1); RBC 3.5 mil/uL (4.50-6.00); WBC 5.5 thou/uL (4.0-11.0)
[2019-10-03 05:35] LABS: ANION GAP 10 mmol/L (7-16); BUN 22 mg/dL (7-18); CALCIUM 9.2 mg/dL (8.5-10.1); CHLORIDE 103 mmol/L (98-107); CO2 25 mmol/L (21-32); GLUCOSE 103 mg/dL (70-99); MAGNESIUM 1.9 mg/dL (1.8-2.4); POTASSIUM 4.2 mmol/L (3.5-5.1); SODIUM 138 mmol/L (136-145); TROPONIN-I LEVEL <0.06 ng/mL (<0.06)
[2019-10-03 08:00] VITALS: BP 172/73
[2019-10-03] MEDS ORDERED: LEVAQUIN 500 M500 M1 PO (11:22)
[2019-10-03] MEDS ORDERED: PREDNISONE 20 M20 MG PO (11:22)
[2019-10-03 12:00] VITALS: BP 192/91
--- NOTE | 2019-10-03 12:56 | CARDNUC ---
[place] [address] CARDIAC NUCLEAR IMAGING REPORT Name: LADARIUSSORAIDA ROMERO Ernie Room: [address] [place]#: [id number] Admission: 10/02/19 Attend Phys: Max pepe Sa Discharge: Date of : 40 Date of Service: 10/03/19 1255 Report #: [id number] THIS REPORT FOR: cc: Rafa Wagner MD, David L. MD Liston, Michael J. MD [facility] ~ APPROVED REPORT Imaging Protocol: Rest Tc-99m/Stress Tc-99m 2 days Study performed: 10/02/2019 09:02:00 Indication: Chest pain Patient Location: In-Patient Room #: 226 Stress Tech: Lucita Cobian Stress Nurse: Yolanda Obrien RN NM Tech:SAURABH Perez Ht: 5 ft 8 in Wt: 265 lbs BSA: 2.30 m2 BMI: 40.28 Medical History Medical History: HTN, Hyperlipidemia, Diabetes Medications: losartan, amlodipine, rosuvastatin, asa-81, carvedilol Allergies: cetirizine, loratindine, fexofenadine, sera inhibitors, metoprolol Cardiac Risk Factors: Age, Hyperlipidemia, HTN, Tobacco History (Former) Previous Cardiac Procedures: CABG, PPM Exercise History: Sedentary Resting Data Rest SPECT myocardial perfusion imaging was performed in supine position 30 minutes following the intravenous injection of 29.2 mCi of Tc-99m Sestamibi. Time of rest injection: 914 Date: 10/02/2019 The images were gated to evaluate regional wall motion and calculate left ventricular ejection fraction. Administration Route: IV Pharmacologic Stress Pharmacologic stress test was performed by injecting Regadenoson 0.4 mg IV push over 10-15 seconds immediately [place] [address] CARDIAC NUCLEAR IMAGING REPORT Name: SORAIDA BELTRAN Room: [address]#: [id number] Admission: 10/02/19 Attend Phys: Max pepe Sa Discharge: Date of : 40 Date of Service: 10/03/19 1255 Report #: [id number] injection of 33.0 mCi of Tc-99m Sestamibi. Time of stress injection: 1104 Date: 10/03/2019 Administration Route: IV Gated Stress SPECT was performed 40 minutes after stress injection. The images were gated to evaluate regional wall motion and calculate left ventricular ejection fraction. Stress only was performed in the Supine position. Stress Test Details Stress Test: Pharmacologic stress testing performed using 0.4 mg of regadenoson per 5 mL given IV over 10 seconds. Reason for pharmacologic stress test: LBBB. HR Max Heart Rate (APMHR): 142 bpm Resting HR: 87 bpm Target HR (85% APMHR): 120 bpm Max HR Achieved: 87 bpm % of APMHR: 61 Recovery HR: 87 bpm BP Resting BP: 162/82 mmHg Max BP: 160/39 mmHg Recovery BP: 116/62 mmHg ECG Resting ECG: AV paced rhythm Stress ECG: AV paced rhythm Recovery ECG: AV paced rhythm Clinical Reason for Termination: Completed protocol Exercise duration: 0 min sec Exercise capacity: 1 METs The patient had symptoms of nausea and hypotension felt to be due to medication affect. There were no significant cardiac symptoms. Nurse Comments pt had hypotension and nausea. caffeine given ivp 60 mg. Symproms resolved Stress ECG Conclusion The baseline 12-lead EKG shows AV sequential pacing. EKGs obtained during and post Lexiscan infusion show AV sequential pacing. Study Quality Study: [place] [address] CARDIAC NUCLEAR IMAGING REPORT Name: SORAIDA BELTRAN Room: [address] [id number] Admission: 10/02/19 Attend Phys: Max pepe Sa Discharge: Date of : 40 Date of Service: 10/03/19 1255 Report #: [id number] Artifact: No artifact Study Data At rest, the left ventricular ejection fraction was 40%.. Post stress, the left ventricular ejection was 48%.. TID = 1.08. Perfusion Perfusion images show evidence of prior inferior wall infarct with a moderate region of asha-infarct ischemia. No other fixed or reversible defects identified. Wall Motion There is a septal wall motion abnormality consistent with prior bypass procedure. There is hypokinesis of the inferior wall. Global LV systolic function appears mild moderately decreased. Nuclear Conclusion ECG Findings: non-diagnostic Clinical Findings: equivocal Nuclear Findings: positive for ischemia Exercise Capacity: not assessed Left Ventricular Function: abnormal Risk Study: high Perfusion images suggest prior inferior wall infarct with a moderate region of asha-infarct ischemia. Global LV systolic function is mild to moderately decreased with wall motion abnormalities as outlined above. This is a high risk study. <Conclusion> The baseline 12-lead EKG shows AV sequential pacing. EKGs obtained during and post Lexiscan infusion show AV sequential pacing. <ELECTRONICALLY SIGNED> By: Blair Thompson MD, FACC 10/03/19 1255 1255 1255 Blair Thompson MD, FACC /INF
[2019-10-03 13:05] VITALS: BP 164/86
[2019-10-03] MEDS ORDERED: IMDUR 30 MG TAB30 M1 PO (15:20)
[2019-10-03 15:22] VITALS: BP 164/86
== END 2019-10-03 15:50 | disposition home or self-care (01) ==
LOC: M.ERS 02:47 → M.2W 04:12 → M.TBA-ER 04:12 → M.2W 05:40
PROVIDERS: Emergency Medicine; Internal Medicine; Registered Nurse; ADMIT Family Medicine
DX: I25.110 Atherosclerotic heart disease of native coronary artery with unstable angina pectoris (principal); R79.89 Other specified abnormal findings of blood chemistry; J40 Bronchitis, not specified as acute or chronic; E11.9 Type 2 diabetes mellitus without complications; I10 Essential (primary) hypertension; E78.5 Hyperlipidemia, unspecified; Z86.73 Personal history of transient ischemic attack (TIA), and cerebral infarction without residual deficits; N40.0 Benign prostatic hyperplasia without lower urinary tract symptoms; Z85.51 Personal history of malignant neoplasm of bladder; G47.00 Insomnia, unspecified; G89.29 Other chronic pain; Z95.1 Presence of aortocoronary bypass graft

== ENCOUNTER 2019-10-10 02:24 | Observation (INO) | payer MEDICARE ==
[2019-10-10] VITALS (8 sets, daily range): BP systolic 102–178; BP diastolic 64–85
[~2019-10-10] VITALS: Ht 172.7 cm; Wt 129.7 kg
[~2019-10-10 02:24] MED LIST changes: +IMDUR 30 MG TAB30 M1 PO; +LEVAQUIN 500 M500 M1 PO; +PREDNISONE 20 M20 MG PO
[2019-10-10 02:56] LABS: ABSOLUTE EOSINOPHILS 0.5 thou/uL (0.0-0.7); ABSOLUTE LYMPHOCYTES 1.2 thou/uL (0.8-5.3); ABSOLUTE NEUTROPHILS 2.7 thou/uL (1.6-8.1); BASOPHILS 0.6 %; EOSINOPHILS 8.9 %; HEMATOCRIT 32.4 % (42.0-52.0); HEMOGLOBIN 11.3 gm/dL (14.0-18.0); MCH 32.6 pg (26.0-34.0); MCHC 34.8 g/dL (28.0-37.0); MCV 93.5 fL (80.0-100.0); MPV 9.2 fl. (7.2-11.1); NUCLEATED RBCS 0 /100WBC; PLATELET COUNT* 142 thou/uL (150-400); POLYS 50.5 %; RBC 3.46 mil/uL (4.50-6.00); RDW-CV 14.8 % (10.5-14.5); WBC 5.3 thou/uL (4.0-11.0)
[2019-10-10 03:25] LABS: CALCIUM 8.6 mg/dL (8.5-10.1); CREATININE 1.2 mg/dL (0.6-1.3); POTASSIUM 4.1 mmol/L (3.5-5.1)
[2019-10-10 03:35] LABS: ALBUMIN 3.3 g/dL (3.4-5.0); MAGNESIUM 2.2 mg/dL (1.8-2.4); TOTAL BILIRUBIN 0.5 mg/dL (<0.1-1.0); TOTAL PROTEIN 6.5 g/dL (6.4-8.2)
--- NOTE | 2019-10-10 10:19 | EKG ---
[place] [address] ELECTROCARDIOGRAM REPORT Name: SORAIDA BELTRAN Room: [place] [address] ADM IN [facility].#: [id number] Admission: 10/10/19 Attend Phys: Jasmeet Castano Discharge: Date of : 40 Date of Service: 10/10/19 0228 Report #: [id number] THIS REPORT FOR: //name// [facility] ED Test Date: 2019-10-10 Test Time: 02:28:21 Pat Name: SORAIDA BELTRAN Department: Room: [facility] Gender: M It Infrastructure Specialist: RASHEL : 1940 Requested By: Myles Marcano Order Number: [id number] MD: Rafa Wright Measurements Intervals [place] Rate: 79 P: 268 LA: 151 QRS: -10 QRSD: 175 T: 101 QT: 449 QTc: 515 Interpretive Statements Atrial and ventricular paced complexes Compared to ECG 10/02/2019 02:51:14 no change Electronically Signed On 10-10-2019 10:18:49 TROUBLE LOCATER by Rafa Wright [email or web address] <ELECTRONICALLY SIGNED> By: Rafa Wright MD, [facility] 10/10/19 1018 Rafa Wright MD, [facility] /EPI
[2019-10-11] VITALS: BP 134/60
[2019-10-11 04:00] VITALS: BP 153/62
[2019-10-11 05:22] LABS: ALBUMIN 3.1 g/dL (3.4-5.0); CALCIUM 8.6 mg/dL (8.5-10.1); CREATININE 0.9 mg/dL (0.6-1.3); MAGNESIUM 1.9 mg/dL (1.8-2.4); POTASSIUM 4.2 mmol/L (3.5-5.1); TOTAL BILIRUBIN 0.6 mg/dL (<0.1-1.0); TOTAL PROTEIN 6.2 g/dL (6.4-8.2)
[2019-10-11 05:24] LABS: HEMATOCRIT 32.7 % (42.0-52.0); HEMOGLOBIN 11.4 gm/dL (14.0-18.0); MCH 32.6 pg (26.0-34.0); MCV 93.1 fL (80.0-100.0); MPV 9.8 fl. (7.2-11.1); RBC 3.51 mil/uL (4.50-6.00); RDW-CV 15.2 % (10.5-14.5); WBC 6.6 thou/uL (4.0-11.0)
[2019-10-11 08:00] VITALS: BP 154/78
[2019-10-11 13:20] VITALS: BP 154/78
--- NOTE | 2019-10-11 13:40 | CON ---
[address] [address] CONSULTATION Name: SORAIDA BELTRAN Room: [address] [place]#: [id number] Admission: 10/10/19 Attend Phys: Lázaro Ponce Discharge: Date of : 40 Report #: [id number] THIS REPORT FOR: //name// cc: Holli Wagner MD, David L. MD ~ THIS REPORT FOR: //name// CC: HOLLI Castano DATE OF SERVICE: 10/10/2019 CARDIOLOGY CONSULTATION HISTORY OF PRESENT ILLNESS: The patient is a 78-year-old white male who I was asked to see in the Emergency Room today after he complained of chest pain. The patient initially presented in 2016 with chest pain. He was admitted to [place] and had a heart catheterization. He subsequently had 4-vessel coronary artery bypass surgery using the vein graft. He has done well since that time. He has previously been followed by my partner, Dr. Thompson. He was actually just admitted to [place] a week ago with atypical chest pain. He saw my nurse practitioner, Janelle Portillo. He underwent a nuclear stress test that showed evidence of previous infarction with some asha-infarct ischemia. The patient was actually discharged on Imdur and scheduled for an angiogram next week. However, the patient states last night he was in bed when he again felt a burning in his chest, went into his shoulder. Denied any shortness of breath, diaphoresis, or nausea. His brought him to the Emergency Room and he was given nitroglycerin. The discomfort eventually resolved. He was admitted for further evaluation and treatment. He denies any exertional chest tightness. Denied the pain being related to taking a deep breath or food. He had no belching. He has chronic edema. He does have exertional dyspnea, but no syncope. PAST MEDICAL HISTORY: He has a history of lymphoma, bladder cancer, cataract extraction, hypertension, diabetes, hyperlipidemia. MEDICATIONS: Include amlodipine, aspirin, carvedilol, Lasix, insulin, losartan, metformin, Crestor. ALLERGIES: He has a previous intolerance to BEATA inhibitors and metoprolol. FAMILY HISTORY: His father of a heart problem. SOCIAL HISTORY: He is . 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 Has 3 glasses of wine a day. REVIEW OF SYSTEMS: He is overweight, being 5 feet 8 inches, 265 pounds. He apparently had a stroke in the past with some speech difficulty. He has sleep apnea, uses CPAP. No asthma. No liver disease, kidney disease, chronic skin condition. He had a history of depression in the past. PHYSICAL EXAMINATION: GENERAL: Revealed a large overweight male, lying in bed, he appeared in no distress. VITAL SIGNS: He had a blood pressure of 140/70, pulse 70, he is afebrile. HEENT: He was anicteric. Conjunctivae are pink. Mucous membranes are moist. NECK: Veins difficult to assess due to obesity. No carotid bruits were heard. CHEST: Clear to auscultation. CARDIOVASCULAR: Regular rate and rhythm. ABDOMEN: Obese. EXTREMITIES: Had trace edema. Dorsalis pedis pulse could not be palpated. SKIN: Cool and dry. NEUROLOGIC: Nonfocal. RADIOLOGICAL DATA: His ECG on admission last night showed a sinus rhythm with a left bundle-branch block. His workup in the Emergency Room today showed a chest x-ray that showed evidence of the permanent pacemaker, some atelectasis. LABORATORY WORK: Sodium 137, BUN 28, creatinine 1.2. Liver function studies were normal. Troponins 0.06. Recent cholesterol 151, triglyceride 180, HDL 58, LDL 57. His white blood cell count 5.3, hematocrit 32.4. His echocardiogram done last week showed an ejection fraction of 55%, biatrial enlargement. IMPRESSION AND RECOMMENDATIONS: 1. Sick sinus syndrome. The patient is AV sequentially paced. 2. Chest burning. Possible unstable angina. Abnormal nuclear stress test. Recommend cardiac catheterization. 3. Previous coronary artery bypass surgery. 4. Hypertension. The patient is on a calcium winnie, beta winnie and ARB. 5. Diabetes. 6. Hyperlipidemia. The patient is on a statin drug. 7. Sleep apnea. The patient uses CPAP. 8. Previous stroke. No clinical recurrences. 9. Obesity. 10. History of lymphoma. 11. History of bladder cancer. <ELECTRONICALLY SIGNED> By: Holli Wright MD, FACC 10/11/19 1340 0841 [id number] Wright MD, FACC /nt
--- NOTE | 2019-10-12 13:09 | CARD ---
[address] [address] CARDIAC CATH REPORT Name: LADARIUSSHONMAGANMusaSORAIDA Ernie Room: [address] Nito Guillermo#: [id number] Admission: 10/10/19 Attend Phys: Lázaro Ponce Discharge: 10/11/19 Date of : 40 Report #: [id number] THIS REPORT FOR: //name// cc: Rafa Wagner MD, David L. MD ~ THIS REPORT FOR: //name// APPROVED REPORT Study performed: 10/10/2019 10:19:41 Patient Details Patient Status: In-Patient Room #: The patient is a 78 year-old male Event Personnel Rafa Wright Gallery Manager, Maxine Carr RN Sewing Pattern Layout Technician, Gonzalo Kyle Scrub, Gabbie Lam RTR Monitor Procedures Performed Art Access - R femoral artery, Left Heart Cath Coronaries, Bypass Grafts , Hemostasis w/ Mynx Indication Positive stress test, Chest pain Risk Factors Coronary Artery Disease, Diabetes Previous Procedures/Diagnoses Previous CABGPrevious PCI Admission/Lab Medications/Medications given during procedure Lidocaine Subcut 14 ml, Midazolam (Versed) IV 2 mg, Fentanyl IV 25 mcg Procedure Narrative The patient was brought electively to the Cardiac Catheterization Laboratory and was prepped and draped in a sterile manner. The right femoral groin area was infiltrated with 1% Lidocaine subcutaneous anesthesia. A 6fr Ultimum Sheath sheath was inserted into the right femoral artery. Coronary angiography was performed using coronary diagnostic catheters. The right coronary system was accessed and visualized with a 6F JR4 catheter. The left coronary system was [facility] [address] [place] [address] CARDIAC CATH REPORT Name: SORAIDA BELTRAN Room: [address] Nito Guillermo#: [id number] Admission: 10/10/19 Attend Phys: Lázaro Ponce Discharge: 10/11/19 Date of : 40 Report #: [id number] accessed and visualized with a 6F JL4 catheter. The left ventricle was accessed and visualized with a 6F JR4 catheter. Left ventricular/Aortic Valve gradient assessed via catheter pullback. Closure device was deployed with a 6 Fr Mynx. The patient tolerated the procedure well and there were no complications associated with the procedure. There was no hematoma. The saphenous vein grafts were accessed and visualized with a 6F JR4 catheter. The HERNANDEZ graft was accessed and visualized with a 6F IM catheter. Left ventricular pressures only were obtained. No left ventriculogram performed. Intraoperative Conscious Sedation Sedation start time: 11:19 Case end Time: 11:52 Fentanyl 25 mcg Versed 2 mg Fluoro Time: 8.1 minutes Dose: DAP 85489 cGycm2 1248 mGy Contrast Type and Amount: Visipaque 150 ml Coronary Angiography The patient's coronary anatomy is right dominant. [place] Artery Percent Stenosis Grafts (Complete if Previous CABG=Yes: Percent Stenosis) Patent HERNANDEZ graft to the mid lad. Patent SVG to the diagonal artery and the marginal artery. Occluded svg to the rca Diagnostic Cath Left Main 90% proximal stenosis LAD stent in proximal lad had 0% stenosis, but lad occluded after the small first diagonal branch Circumflex 100% proximal occluded Right Coronary 60% mid stenosis and 60% distal stenosis R PDA small vessel with 70% ostial stenosis Left Ventriculography Left Ventriculography was not performed. Hemodynamics The aortic pressure is 134/61 mmHg with a mean of 92 mmHg. The left ventricular pressure is 138/10 mmHg with a mean of mmHg. The left ventricular end diastolic pressure is 13 mmHg. There was no gradient across the aortic valve upon pullback. Pullback from the left ventricle to the aorta revealed no gradient [place] [address] CARDIAC CATH REPORT Name: SORAIDA BELTRAN Room: [address] [place]#: [id number] Admission: 10/10/19 Attend Phys: Lázaro Ponce Discharge: 10/11/19 Date of : 40 Report #: [id number] Conclusion 1. 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 60% stenosis of the rca 3. Patent HERNANDEZ graft to the lad, patent svg to the diagonal and circumflex artery. Occluded svg to the rca Recommendations Cardiac Rehabilitation Referral Aggressive Medical Therapy <ELECTRONICALLY SIGNED> By: Rafa Wright MD, [facility] 10/12/19 1308 1308 1308Daananda Wright MD, [facility] /INF
--- NOTE | 2019-10-13 16:23 | EKG ---
[place] [address] ELECTROCARDIOGRAM REPORT Name: RUBYSORAIDA Ernie Room: [address] M.#: [id number] Admission: 10/10/19 Attend Phys: Jasmeet Castano Discharge: 10/11/19 Date of : 40 Date of Service: 10/11/19 0232 Report #: [id number] THIS REPORT FOR: //name// [facility] Test Date: 2019-10-11 Test Time: 02:32:20 Pat Name: SORAIDA BELTRAN Department: Room: [address] Gender: M Emissions Testing Technician: RASHEL : 1940 Requested By: Rafa Wright Order Number: [id number] Dong MD: Blair Thompson Measurements Intervals [place] Rate: 76 P: 25 [place]: 207 QRS: 1 QRSD: 177 T: 114 QT: 444 QTc: 500 Interpretive Statements Sinus rhythm Left bundle branch block Compared to ECG 10/10/2019 02:28:21 Left bundle-branch block now present Ventricular-paced complex(es) or rhythm no longer present Electronically Signed On 10-13-2019 16:22:26 CDT by Blair Thompson [email or web address] <ELECTRONICALLY SIGNED> By: Blair Thompson MD, FACC 10/13/19 1622 1 1 Blair Thompson MD, FACC /EPI
== END 2019-10-11 13:40 | disposition home or self-care (01) ==
LOC: M.ERS 02:24 → M.TBA-CV 03:55 → M.TBA-ER 03:55 → M.TBA-CV 03:55 → M.2W 16:48
PROVIDERS: Emergency Medicine Emergency Medical Services; Internal Medicine; ADMIT Internal Medicine
DX: R07.89 Other chest pain (principal); I25.10 Atherosclerotic heart disease of native coronary artery without angina pectoris; E78.5 Hyperlipidemia, unspecified; E11.9 Type 2 diabetes mellitus without complications; M19.90 Unspecified osteoarthritis, unspecified site; N40.0 Benign prostatic hyperplasia without lower urinary tract symptoms; E11.42 Type 2 diabetes mellitus with diabetic polyneuropathy; E66.01 Morbid (severe) obesity due to excess calories; G89.29 Other chronic pain; F11.20 Opioid dependence, uncomplicated; I11.0 Hypertensive heart disease with heart failure; I50.32 Chronic diastolic (congestive) heart failure; Z95.1 Presence of aortocoronary bypass graft; Z85.51 Personal history of malignant neoplasm of bladder; Z86.73 Personal history of transient ischemic attack (TIA), and cerebral infarction without residual deficits

== ENCOUNTER → 2019-10-16 | Outpatient (CLI) | payer MEDICARE | LOC: M.WC 07:46 | DX: S41.112A Laceration without foreign body of left upper arm, initial encounter (principal); S41.102A Unspecified open wound of left upper arm, initial encounter; E11.65 Type 2 diabetes mellitus with hyperglycemia; E11.40 Type 2 diabetes mellitus with diabetic neuropathy, unspecified; E78.5 Hyperlipidemia, unspecified; G20 Parkinson's disease; G47.30 Sleep apnea, unspecified; I25.10 Atherosclerotic heart disease of native coronary artery without angina pectoris; I10 Essential (primary) hypertension; Z95.0 Presence of cardiac pacemaker; Z87.891 Personal history of nicotine dependence; Z86.73 Personal history of transient ischemic attack (TIA), and cerebral infarction without residual deficits; Z85.51 Personal history of malignant neoplasm of bladder; Z85.828 Personal history of other malignant neoplasm of skin; Z79.4 Long term (current) use of insulin; Z79.82 Long term (current) use of aspirin; X58.XXXA Exposure to other specified factors, initial encounter; Y93.89 Activity, other specified; Y92.89 Other specified places as the place of occurrence of the external cause; Y99.8 Other external cause status ==

== ENCOUNTER → 2019-10-23 | Outpatient (CLI) | payer MEDICARE | LOC: M.WC 03:54 | DX: S41.112D Laceration without foreign body of left upper arm, subsequent encounter (principal); E11.40 Type 2 diabetes mellitus with diabetic neuropathy, unspecified; E11.65 Type 2 diabetes mellitus with hyperglycemia; E78.5 Hyperlipidemia, unspecified; G20 Parkinson's disease; G47.30 Sleep apnea, unspecified; I10 Essential (primary) hypertension; I25.10 Atherosclerotic heart disease of native coronary artery without angina pectoris; Z86.73 Personal history of transient ischemic attack (TIA), and cerebral infarction without residual deficits; Z85.51 Personal history of malignant neoplasm of bladder; Z85.828 Personal history of other malignant neoplasm of skin; Z87.891 Personal history of nicotine dependence; X58.XXXD Exposure to other specified factors, subsequent encounter ==

== ENCOUNTER → 2019-10-30 | Outpatient (CLI) | payer MEDICARE | LOC: M.WC 02:42 | DX: S41.112D Laceration without foreign body of left upper arm, subsequent encounter (principal); E11.40 Type 2 diabetes mellitus with diabetic neuropathy, unspecified; E11.65 Type 2 diabetes mellitus with hyperglycemia; E78.5 Hyperlipidemia, unspecified; G20 Parkinson's disease; G47.30 Sleep apnea, unspecified; I25.10 Atherosclerotic heart disease of native coronary artery without angina pectoris; I10 Essential (primary) hypertension; Z85.72 Personal history of non-Hodgkin lymphomas; Z87.891 Personal history of nicotine dependence; Z86.73 Personal history of transient ischemic attack (TIA), and cerebral infarction without residual deficits; Z85.51 Personal history of malignant neoplasm of bladder; Z85.828 Personal history of other malignant neoplasm of skin; X58.XXXD Exposure to other specified factors, subsequent encounter ==

== ENCOUNTER → 2020-04-28 | Outpatient (CLI) | payer MEDICARE ==
[~2020-04-28] MED LIST changes: +CARVEDILOL25 MG PO; +METFORMIN HCL500 M3 PO
== END ==
LOC: M.PC 09:51
PROVIDERS: ATTEND Physical Medicine & Rehabilitation
DX: M47.816 Spondylosis without myelopathy or radiculopathy, lumbar region (principal); M51.36 Other intervertebral disc degeneration, lumbar region; F10.10 Alcohol abuse, uncomplicated

== ENCOUNTER → 2020-05-04 | Outpatient (CLI) | payer MEDICARE | LOC: M.CT 10:34 | PROVIDERS: ATTEND Physical Medicine & Rehabilitation | DX: M47.815 Spondylosis without myelopathy or radiculopathy, thoracolumbar region (principal); M25.78 Osteophyte, vertebrae; M41.85 Other forms of scoliosis, thoracolumbar region; M51.27 Other intervertebral disc displacement, lumbosacral region; M48.061 Spinal stenosis, lumbar region without neurogenic claudication ==

== ENCOUNTER 2020-05-12 16:11 | Observation (INO) | payer MEDICARE ==
[~2020-05-12] VITALS: Ht 172.7 cm; Wt 122.9 kg
[2020-05-12 16:14] VITALS: BP 147/64
[2020-05-12] MEDS ORDERED: ROSUVASTATIN CA20 MG PO (16:24)
[2020-05-12] MEDS ORDERED: METFORMIN HCL500 M3 PO (16:24)
[2020-05-12] MEDS ORDERED: COZAAR 25 MG TA25 M1 PO (16:24)
[2020-05-12 16:44] LABS: HEMATOCRIT 29.1 % (42.0-52.0); HEMOGLOBIN 10.2 gm/dL (14.0-18.0); MCH 33.1 pg (26.0-34.0); MCHC 35.1 g/dL (28.0-37.0); MCV 94.4 fL (80.0-100.0); MPV 8.9 fl. (7.2-11.1); NUCLEATED RBCS 0 /100WBC; PLATELET COUNT* 129 thou/uL (150-400); RBC 3.08 mil/uL (4.50-6.00); RDW-CV 14.1 % (10.5-14.5); WBC 4.2 thou/uL (4.0-11.0)
[2020-05-12 16:50] LABS: CALCIUM 8.7 mg/dL (8.5-10.1); CREATININE 1.3 mg/dL (0.6-1.3); POTASSIUM 4.3 mmol/L (3.5-5.1)
[2020-05-12 16:51] LABS: APTT 24.6 Seconds (25.0-31.3); PROTIME 10.7 Seconds (9.20-11.50)
[2020-05-12 17:04] LABS: ALBUMIN 3.1 g/dL (3.4-5.0); TOTAL BILIRUBIN 0.3 mg/dL (<0.1-1.0); TOTAL PROTEIN 5.9 g/dL (6.4-8.2)
[2020-05-12 17:36] LABS: ABSOLUTE EOSINOPHILS 0.7 thou/uL (0.0-0.7); ABSOLUTE LYMPHOCYTES 0.6 thou/uL (0.8-5.3); ABSOLUTE MONOCYTES 0.5 thou/uL (0.0-1.2); ABSOLUTE NEUTROPHILS 2.5 thou/uL (1.6-8.1); PLATELET ESTIMATE DECREASED
[2020-05-12 20:46] VITALS: BP 185/82
[2020-05-12 21:15] VITALS: BP 163/72
[2020-05-12] MEDS ORDERED: FOLIC ACID1 MG PO (21:25)
[2020-05-12] MEDS ORDERED: CARVEDILOL12.5 MG PO (21:25)
[2020-05-12] MEDS ORDERED: AMLODIPINE BESY10 MG PO (21:25)
[2020-05-12] MEDS ORDERED: FISH OIL 1,001000 M3 PO (21:26)
[2020-05-12] MEDS ORDERED: TRESIBA FL200 UNIT/1 SUBQ (21:27)
[2020-05-13] VITALS: BP 150/72
[2020-05-13 05:21] VITALS: BP 180/73
[2020-05-13 08:00] VITALS: BP 143/59
[2020-05-13] MEDS ORDERED: LASIX 40 MG TAB40 M2 PO (09:13)
[2020-05-13 11:06] VITALS: BP 143/59
--- NOTE | 2020-05-13 11:38 | EKG ---
[place] [address] ELECTROCARDIOGRAM REPORT Name: SORAIDA BELTRAN Room: [address] M.R.#: [id number] Admission: 05/12/20 Attend Phys: Jasmeet Castano Discharge: Date of : 40 Date of Service: 05/12/20 1626 Report #: [id number] THIS REPORT FOR: //name// [facility] ED Test Date: 2020-05-12 Test Time: 16:26:21 Pat Name: SORAIDA BELTRAN Department: Room: [facility] Gender: M Soft Top Installer: : 1940 Requested By: Myles Marcano Order Number: [id number] MD: Rafa Wright Measurements Intervals [place] Rate: 66 P: -74 MO: 151 QRS: 0 QRSD: 171 T: 111 QT: 450 QTc: 472 Interpretive Statements Sinus or ectopic atrial rhythm Left bundle branch block Baseline wander in lead(s) II Compared to ECG 10/11/2019 02:32:20 no change Electronically Signed On 05-13-2020 11:37:58 CDT by Rafa Wright [email or web address] <ELECTRONICALLY SIGNED> By: Rafa Wright MD, FACC 05/13/20 1137 1626 1626 Rafa Wright MD, FAC /EPI
== END 2020-05-13 12:05 | disposition home or self-care (01) ==
LOC: M.ERS 16:11 → M.2W 17:19 → M.TBA-ER 17:19 → M.2W 21:14
PROVIDERS: Emergency Medicine Emergency Medical Services; ADMIT Internal Medicine; ATTEND Internal Medicine
DX: I11.0 Hypertensive heart disease with heart failure (principal); I50.33 Acute on chronic diastolic (congestive) heart failure; E11.9 Type 2 diabetes mellitus without complications; I25.10 Atherosclerotic heart disease of native coronary artery without angina pectoris; E66.01 Morbid (severe) obesity due to excess calories; G47.30 Sleep apnea, unspecified; D64.9 Anemia, unspecified; E87.1 Hypo-osmolality and hyponatremia; I48.91 Unspecified atrial fibrillation; G40.909 Epilepsy, unspecified, not intractable, without status epilepticus; Z79.82 Long term (current) use of aspirin; Z79.4 Long term (current) use of insulin; Z20.828 Contact with and (suspected) exposure to other viral communicable diseases; Z95.1 Presence of aortocoronary bypass graft; Z68.41 Body mass index [BMI] 40.0-44.9, adult

== ENCOUNTER 2021-02-06 13:56 | Inpatient (IN) | payer MEDICARE ==
[~2021-02-06] VITALS: Ht 180.3 cm; Wt 121.7 kg
[~2021-02-06 13:56] MED LIST changes: +AMLODIPINE BESY10 MG PO; +COZAAR 25 MG TA25 M1 PO; +FISH OIL 1,001000 M3 PO; +FOLIC ACID1 MG PO; +ROSUVASTATIN CA20 MG PO; +TRESIBA FL200 UNIT/1 SUBQ
[2021-02-06 14:00] VITALS: BP 133/75
[2021-02-06 14:39] LABS: ABSOLUTE EOSINOPHILS 0.2 thou/uL (0.0-0.7); ABSOLUTE MONOCYTES 0.6 thou/uL (0.0-1.2); ABSOLUTE NEUTROPHILS 2.6 thou/uL (1.6-8.1); BASOPHILS 0.9 %; EOSINOPHILS 4.7 %; HEMATOCRIT 31.3 % (42.0-52.0); LYMPHOCYTES 23.4 %; MCH 33.6 pg (26.0-34.0); MCV 95.8 fL (80.0-100.0); MONOCYTES 12.5 %; MPV 8.5 fl. (7.2-11.1); NUCLEATED RBCS 0 /100WBC; PLATELET COUNT* 142 thou/uL (150-400); POLYS 58.5 %; RBC 3.27 mil/uL (4.50-6.00); RDW-CV 14.1 % (10.5-14.5); WBC 4.4 thou/uL (4.0-11.0)
[2021-02-06 14:53] LABS: CALCIUM 8.9 mg/dL (8.5-10.1); CREATININE 1.2 mg/dL (0.6-1.3); POTASSIUM 4.8 mmol/L (3.5-5.1)
[2021-02-06 15:03] LABS: ALBUMIN 3.5 g/dL (3.4-5.0); TOTAL BILIRUBIN 0.3 mg/dL (<0.1-1.0); TOTAL PROTEIN 7.1 g/dL (6.4-8.2)
[2021-02-06 17:50] VITALS: BP 150/87
[2021-02-06 19:00] VITALS: BP 169/73
[2021-02-06 20:00] VITALS: BP 165/68
[2021-02-07] VITALS: BP 146/79
[2021-02-07 04:00] VITALS: BP 144/61
[2021-02-07 08:15] VITALS: BP 151/73
--- NOTE | 2021-02-07 11:45 | EKG ---
[place] [address] ELECTROCARDIOGRAM REPORT Name: SORAIDA BELTRAN Room: [address] ADM IN M.R.#: [id number] Admission: 02/06/21 Attend Phys: Jasmeet Castano Discharge: Date of : 40 Date of Service: 02/06/21 1401 Report #: [id number] THIS REPORT FOR: //name// [facility] ED Test Date: 2021-02-06 Test Time: 14:01:51 Pat Name: SORAIDA BELTRAN Department: Room: [facility] Gender: M Loom Doffer: DENISE : 1940 Requested By: Myles Marcano Order Number: [id number] MD: Rafa Wright Measurements Intervals [place] Rate: 114 P: [place]: QRS: -25 QRSD: 188 T: 132 QT: 378 QTc: 521 Interpretive Statements Atrial fibrillation with pvc Left bundle branch block Compared to ECG 05/12/2020 16:26:21 Ectopic atrial rhythm no longer present Electronically Signed On 02-07-2021 11:45:17 CDT by Rafa Wright [email or web address] <ELECTRONICALLY SIGNED> By: Rafa Wright MD, [facility] 02/07/21 1145 1401 1401 Rafa Wright MD, [facility] /EPI
[2021-02-07 12:00] VITALS: BP 152/69
[2021-02-07 16:00] VITALS: BP 157/60
[2021-02-07 20:00] VITALS: BP 164/83
[2021-02-08] VITALS (7 sets, daily range): BP systolic 136–181; BP diastolic 50–87
[2021-02-08 04:59] LABS: HEMATOCRIT 32.1 % (42.0-52.0); HEMOGLOBIN 11.3 gm/dL (14.0-18.0); MCH 33.3 pg (26.0-34.0); MCHC 35.1 g/dL (28.0-37.0); MCV 94.8 fL (80.0-100.0); MPV 8.9 fl. (7.2-11.1); RBC 3.38 mil/uL (4.50-6.00); RDW-CV 14.5 % (10.5-14.5); WBC 6.5 thou/uL (4.0-11.0)
[2021-02-08 05:13] LABS: ANION GAP 7 mmol/L (7-16); BUN 20 mg/dL (7-18); CALCIUM 8.9 mg/dL (8.5-10.1); CHLORIDE 99 mmol/L (98-107); CHOLESTEROL 125 mg/dL (<200); CO2 29 mmol/L (21-32); GLUCOSE 81 mg/dL (70-99); HDL CHOLESTEROL 65 mg/dL (>40); LDL CHOLESTEROL 38 mg/dL (<100); POTASSIUM 3.6 mmol/L (3.5-5.1); SODIUM 135 mmol/L (136-145); TC:HDL 1.9 Ratio (Not establshd); TRIGLYCERIDE 110 mg/dL (<150); VLDL 22 mg/dL (<40)
[2021-02-08 05:16] LABS: SERUM ASSESSMENT Clear
--- NOTE | 2021-02-08 09:54 | EKG ---
[place] [address] ELECTROCARDIOGRAM REPORT Name: RUBYSORAIDA Room: [address] ADM IN M.R.#: [id number] Admission: 02/06/21 Attend Phys: Jasmeet Castano Discharge: Date of : 40 Date of Service: 02/08/21 0928 Report #: [id number] THIS REPORT FOR: //name// [facility] Test Date: 2021-02-08 Test Time: 09:28:35 Pat Name: SORAIDA BELTRAN Department: Room: [address] Gender: M Supervisor Coal Handling: YISSEL : 1940 Requested By: Rafa Wright Order Number: [id number] Reading MD: aRfa Wright Measurements Intervals [place] Rate: 73 P: 0 [place]: 66 QRS: -18 QRSD: 178 T: 154 QT: 462 QTc: 510 Interpretive Statements AV paced rhythm with PVC's Baseline wander in lead(s) V1 Compared to ECG 02/06/2021 14:01:51 Atrial fibrillation no longer present Electronically Signed On 02-08-2021 9:53:50 CDT by Rafa Wright [email or web address] <ELECTRONICALLY SIGNED> By: Rafa Wright MD, [facility] 02/08/21 0953 Rafa Wright MD, [facility] /EPI
[2021-02-09] VITALS (7 sets, daily range): BP systolic 151–158; BP diastolic 60–78
[2021-02-09 04:55] LABS: HEMOGLOBIN 11.3 gm/dL (14.0-18.0); MCH 33.3 pg (26.0-34.0); MCHC 35.2 g/dL (28.0-37.0); MCV 94.5 fL (80.0-100.0); RBC 3.38 mil/uL (4.50-6.00); RDW-CV 14.3 % (10.5-14.5); WBC 5.5 thou/uL (4.0-11.0)
[2021-02-09 04:56] LABS: CALCIUM 9.1 mg/dL (8.5-10.1); CREATININE 0.9 mg/dL (0.6-1.3); POTASSIUM 3.6 mmol/L (3.5-5.1)
[2021-02-09] MEDS ORDERED: LIPITOR 40 MG T40 M1 PO (08:25)
[2021-02-09] MEDS ORDERED: ELIQUIS5 MG PO (08:25)
[2021-02-09] MEDS ORDERED: SORINE 80 MG TA80 M1 PO (09:40)
--- NOTE | 2021-02-09 11:16 | EKG ---
[place] [address] ELECTROCARDIOGRAM REPORT Name: SORAIDA BELTRAN Room: [address] ADM IN M.R.#: [id number] Admission: 02/06/21 Attend Phys: Jasmeet Castano Discharge: Date of : 40 Date of Service: 02/09/21 1013 Report #: [id number] THIS REPORT FOR: //name// [facility] Test Date: 2021-02-09 Test Time: 10:13:40 Pat Name: SORAIDA BELTRAN Department: Room: [address] Gender: M Motion Picture Critic: : 1940 Requested By: Rafa Wright Order Number: [id number] Dong MD: Rafa Wright Measurements Intervals [place] Rate: 75 P: [place]: 216 QRS: -4 QRSD: 174 T: 185 QT: 427 QTc: 477 Interpretive Statements Atrial-paced complexes Left bundle branch block Compared to ECG 02/08/2021 09:28:35 Ventricular-paced complex(es) or rhythm no longer present pvc's no longer noted Electronically Signed On 02-09-2021 11:15:55 CDT by Rafa Wright [email or web address] <ELECTRONICALLY SIGNED> By: Rafa Wright MD, FAC 02/09/21 1115 1013 1013 Rafa Wright MD, [facility] /EPI
--- NOTE | 2021-02-09 12:25 | CON ---
[address] [address] CONSULTATION Name: SORAIDA BELTRAN Room: [address] IN M.R.#: [id number] Admission: 02/06/21 Attend Phys: Lázaro Ponce Discharge: Date of : 40 Report #: [id number] THIS REPORT FOR: cc: Anjum Purcell MD, Meng MD Blick, David R. MD [facility] ~ DOC #: [id number] Rafa Wright MD [facility] DATE OF CONSULTATION: 02/07/2021 CARDIOLOGY CONSULTATION HISTORY OF PRESENT ILLNESS: The patient is an 80-year-old white male who I was asked to see in the hospital today after he complained of palpitations. The patient has an extensive and complicated past medical history. He apparently presented 5 years ago to [facility]. He was found to have coronary artery disease after he presented with chest pain. He was found to have multivessel disease and underwent quadruple coronary artery bypass surgery. He then had an episode of atrial fibrillation and was admitted here to [facility] requiring cardioversion. Because of bradycardia, Dr. Thompson eventually placed a pacemaker 2 years ago. He has done well since that time. He apparently had a stress test 2 years ago. He is not very active, but denies any recent chest pain, shortness of breath. He does have chronic edema. He notes for the past couple of nights, he has had episodes of his heart beating fast and irregular. Yesterday, it tended to come and go. He finally was brought here to the Emergency Room by ambulance and was noted to be in rapid atrial fibrillation. He was started on IV diltiazem and converted to sinus rhythm. I was asked to see him for further evaluation and treatment. He denies recent syncope, bleeding, fever. PAST MEDICAL HISTORY: Otherwise, he has had bladder cancer, history of lymphoma. He has a history of hypertension, diabetes, hyperlipidemia. CURRENT MEDICATIONS: Consist of: 1. Amlodipine. 2. Carvedilol. 3. Lasix. 4. Insulin. 5. Losartan. 6. Crestor. 7. Aspirin a day. ALLERGIES: He has previous intolerance to BEATA INHIBITORS. FAMILY HISTORY: [place] [address] CONSULTATION Name: SORAIDA BELTRAN Room: [address]#: [id number] Admission: 02/06/21 Attend Phys: Lázaro Ponce Discharge: Date of : 40 Report #: [id number] SOCIAL HISTORY: He is . 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 He quit smoking years ago, rarely drinks alcohol. REVIEW OF SYSTEMS: He is overweight, being 5 feet 8 inches and 260 pounds. He has a history of sleep apnea, uses BiPAP. He had a stroke years ago while in [place]. No recurrent episodes. No history of asthma, liver disease, kidney disease, chronic skin condition, psychiatric illness. PHYSICAL EXAMINATION: GENERAL: Revealed a large, elderly male, lying in bed, appeared in no distress. CURRENT VITAL SIGNS: Blood pressure is 140/80, pulse is 80. He is afebrile. HEENT: He is anicteric. Conjunctivae pink. Mucosa moist. NECK: Veins do not appear distended. No carotid bruits. CHEST: Revealed decreased breath sounds at bases. CARDIAC: Regular rate and rhythm. Grade 3 systolic ejection murmur at the left sternal border. ABDOMEN: Obese. EXTREMITIES: Had trace edema. Dorsalis pedis pulse, 1+. SKIN: Cool and dry. NEUROLOGIC: Nonfocal. IMAGING DATA: ECG yesterday showed atrial fibrillation with rapid ventricular response rate and left bundle branch block. Currently, he appears to be in a sinus rhythm. In his workup, the patient actually had an echocardiogram done in 09/2019 that showed ejection fraction of 50%, biatrial enlargement, aortic sclerosis, actually moderate pulmonary hypertension. His nuclear stress test in 09/2019 showed an ejection fraction of 48% with inferior scar with asha-infarct ischemia. Workup in the Emergency Room last night, he actually had a portable chest x-ray that showed atelectasis, cardiomegaly. LABORATORY DATA: Sodium 133, potassium 4.8, creatinine 1.2. BNP 1567. Troponin 0.06. TSH in 03/2019 was 2.9. White blood cell count 4.4. Hematocrit 31.3, it was actually 28 back [place] [address] CONSULTATION Name: SORAIDA BELTRAN Room: [address] IN [facility].#: [id number] Admission: 02/06/21 Attend Phys: Lázaro Ponce Discharge: Date of : 40 Report #: [id number] IMPRESSION AND RECOMMENDATIONS: 1. Atrial fibrillation. Previous episodes requiring cardioversion. Currently in sinus rhythm. At this time, I would recommend starting amiodarone. I would recommend anticoagulation with Eliquis. 2. Sick sinus syndrome. Previous pacemaker. 3. Coronary artery disease, previous bypass surgery. No recent angina. We would continue aspirin 81 mg a day. 4. Hypertension. The patient has been on beta winnie and a calcium winnie. He apparently could not tolerate BEATA inhibitors in the past, although the patient is on an ARB. 5. Hyperlipidemia. The patient is on a statin drug. 6. History of bladder cancer. 7. History of lymphoma. 8. Obesity. 9. Sleep apnea. The patient uses a CPAP. 10. Previous stroke. I would recommend anticoagulation. Rafa Wright MD [facility] <ELECTRONICALLY SIGNED> By: Rafa Wright MD, [facility] 02/09/21 1225 0722 0922Daananda Wright MD, [facility] /nt
== END 2021-02-09 13:28 | disposition home or self-care (01) | DRG 309 ==
LOC: M.ERS 13:56 → M.2W 15:58 → M.TBA-ER 15:58 → M.2W 17:55
PROVIDERS: Emergency Medicine Emergency Medical Services; Family Medicine; Internal Medicine Cardiovascular Disease; ADMIT Internal Medicine; ATTEND Internal Medicine
DX: I48.0 Paroxysmal atrial fibrillation (principal); E87.1 Hypo-osmolality and hyponatremia; I50.32 Chronic diastolic (congestive) heart failure; I48.20 Chronic atrial fibrillation, unspecified; I49.5 Sick sinus syndrome; E78.5 Hyperlipidemia, unspecified; Z20.822 Contact with and (suspected) exposure to COVID-19; E11.9 Type 2 diabetes mellitus without complications; Z95.0 Presence of cardiac pacemaker; N40.0 Benign prostatic hyperplasia without lower urinary tract symptoms; M19.90 Unspecified osteoarthritis, unspecified site; G89.29 Other chronic pain; E66.01 Morbid (severe) obesity due to excess calories; I11.0 Hypertensive heart disease with heart failure; D64.9 Anemia, unspecified; G47.33 Obstructive sleep apnea (adult) (pediatric); I25.10 Atherosclerotic heart disease of native coronary artery without angina pectoris; T46.4X5A Adverse effect of angiotensin-converting-enzyme inhibitors, initial encounter; Y92.89 Other specified places as the place of occurrence of the external cause; Z85.51 Personal history of malignant neoplasm of bladder; Z08 Encounter for follow-up examination after completed treatment for malignant neoplasm; Z86.73 Personal history of transient ischemic attack (TIA), and cerebral infarction without residual deficits; Z85.72 Personal history of non-Hodgkin lymphomas; Z98.42 Cataract extraction status, left eye; Z98.41 Cataract extraction status, right eye; Z95.1 Presence of aortocoronary bypass graft; Z68.37 Body mass index [BMI] 37.0-37.9, adult; Z88.8 Allergy status to other drugs, medicaments and biological substances; Z82.49 Family history of ischemic heart disease and other diseases of the circulatory system

== ENCOUNTER 2021-03-22 18:29 | Emergency (ER) | payer MEDICARE ==
[~2021-03-22] VITALS: Ht 172.7 cm; Wt 120.2 kg
[~2021-03-22 18:29] MED LIST changes: +LIPITOR 40 MG T40 M1 PO; +SORINE 80 MG TA80 M1 PO
[2021-03-22 20:10] VITALS: BP 173/77
== END 2021-03-22 20:10 | disposition home or self-care (01) ==
LOC: M.ERS 18:29
DX: S00.83XA Contusion of other part of head, initial encounter (principal); S00.531A Contusion of lip, initial encounter; R04.0 Epistaxis; E11.9 Type 2 diabetes mellitus without complications; I10 Essential (primary) hypertension; E78.5 Hyperlipidemia, unspecified; E66.01 Morbid (severe) obesity due to excess calories; Z79.2 Long term (current) use of antibiotics; Z79.4 Long term (current) use of insulin; Z79.899 Other long term (current) drug therapy; Z88.1 Allergy status to other antibiotic agents; Z88.6 Allergy status to analgesic agent; Z88.8 Allergy status to other drugs, medicaments and biological substances; W01.198A Fall on same level from slipping, tripping and stumbling with subsequent striking against other object, initial encounter; Y93.89 Activity, other specified; Y92.098 Other place in other non-institutional residence as the place of occurrence of the external cause; Y99.8 Other external cause status

== ENCOUNTER 2021-05-02 11:47 | Inpatient (IN) | payer MEDICARE ==
[~2021-05-02] VITALS: Ht 172.7 cm; Wt 115.5 kg
[2021-05-02 11:54] VITALS: BP 196/94
[2021-05-02 12:20] LABS: HEMOGLOBIN 13.1 gm/dL (14.0-18.0); MCH 33.2 pg (26.0-34.0); MCHC 34.4 g/dL (28.0-37.0); MCV 96.7 fL (80.0-100.0); MPV 8.7 fl. (7.2-11.1); NUCLEATED RBCS 0 /100WBC; PLATELET COUNT* 171 thou/uL (150-400); RBC 3.93 mil/uL (4.50-6.00); RDW-CV 14.3 % (10.5-14.5); WBC 9.9 thou/uL (4.0-11.0)
[2021-05-02 12:53] LABS: CALCIUM 9.4 mg/dL (8.5-10.1); CREATININE 1.1 mg/dL (0.6-1.3); POTASSIUM 4.4 mmol/L (3.5-5.1)
--- NOTE | 2021-05-02 12:53 | EKG ---
[place] [address] ELECTROCARDIOGRAM REPORT Name: SORAIDA BELTRAN Room: [facility]#: [id number] Admission: Attend Phys: Discharge: Date of : 40 Date of Service: 05/02/21 1151 Report #: [id number] THIS REPORT FOR: //name// [facility] ED Test Date: 2021-05-02 Test Time: 11:51:42 Pat Name: SORAIDA BELTRAN Department: Room: Gender: Speech Language Pathologist Assistant: : 1940 Requested By: Rai Elias Order Number: [id number] MD: Rafa Wright Measurements Intervals [place] Rate: 93 P: -60 MO: 133 QRS: 27 QRSD: 171 T: 176 QT: 382 QTc: 476 Interpretive Statements Sinus or ectopic atrial rhythm Left bundle branch block Baseline wander in lead(s) II,III,aVR,aVL,aVF,V1,V2,V3,V4,V5,V6 Compared to ECG 02/09/2021 10:13:40 Atrial-paced complex(es) or rhythm no longer present Electronically Signed On 05-02-2021 12:53:13 CDT by Rafa Wright [email or web address] <ELECTRONICALLY SIGNED> By: Rafa Wright MD, [facility] 05/02/21 1253 1151 1151 Rafa Wright MD, [facility] /EPI
[2021-05-02 13:04] LABS: ALBUMIN 4.1 g/dL (3.4-5.0); TOTAL BILIRUBIN 0.7 mg/dL (<0.1-1.0); TOTAL PROTEIN 7.5 g/dL (6.4-8.2)
[2021-05-02 13:20] LABS: ABSOLUTE EOSINOPHILS 0.2 thou/uL (0.0-0.7); ABSOLUTE LYMPHOCYTES 0.9 thou/uL (0.8-5.3); ABSOLUTE MONOCYTES 0.2 thou/uL (0.0-1.2); ABSOLUTE NEUTROPHILS 8.6 thou/uL (1.6-8.1)
[2021-05-02 13:21] LABS: PLATELET ESTIMATE ADEQUATE
[2021-05-02 13:25] LABS: URINE BILIRUBIN NEGATIVE (Negative); URINE BLOOD 2+ (Negative); URINE CLARITY CLEAR; URINE COLOR YELLOW; URINE GLUCOSE-RANDOM NEGATIVE (Negative); URINE KETONES NEGATIVE (Negative); URINE LEUKOCYTES-REFLEX NEGATIVE (Negative); URINE NITRITE-REFLEX NEGATIVE (Negative); URINE PROTEIN 2+ (Negative); URINE SPECIFIC GRAVITY 1.025 (1.005-1.030)
[2021-05-02 13:35] LABS: BACTERIA-REFLEX 1-9 Few /HPF (None Seen); SQUAMOUS >10 Many /LPF (0-3); URINE WBC-REFLEX 0-5 Rare /HPF (0-5)
[2021-05-02 13:36] LABS: CASTS None Seen /LPF (None Seen); CRYSTALS None Seen /LPF (None Seen); MUCUS None Seen strn/LPF (None Seen); URINE RBC 3-10 Few /HPF (0-2)
[2021-05-02 14:03] LABS: BE -0.7 mmol/L (-2 to +3); PCO2 43.7 mmHg (35.0-45.0); PO2 122.1 mmHg (75.0-100.0); pH 7.371 (7.340-7.450)
[2021-05-02 14:36] VITALS: BP 177/80
[2021-05-02 20:30] VITALS: BP 125/51
[2021-05-02 23:27] VITALS: BP 150/61
[2021-05-03 03:30] VITALS: BP 133/64
[2021-05-03 12:00] VITALS: BP 136/66
--- NOTE | 2021-05-03 13:51 | EKG ---
[place] [address] ELECTROCARDIOGRAM REPORT Name: LADARIUSSHONMAGANSORAIDA Vigil Ernie Room: [address] ADM IN M.R.#: [id number] Admission: 05/02/21 Attend Phys: Jasmeet Castano Discharge: Date of : 40 Date of Service: 05/02/212136 Report #: [id number] THIS REPORT FOR: //name// [facility] Test Date: 2021-05-02 Test Time: 21:37:48 Pat Name: SORAIDA BELTRAN Department: Room: [address] Gender: M Healthcare Architect: BRIDGETTE : 1940 Requested By: Jasmeet Castano Order Number: [id number] Dong MD: Rafa Wright Measurements Intervals [place] Rate: 70 P: [place]: QRS: 4 QRSD: 176 T: 184 QT: 456 QTc: 493 Interpretive Statements Accelerated junctional rhythm Left bundle branch block Baseline wander in lead(s) II Compared to ECG 05/02/2021 11:51:42 Accelerated junctional rhythm now present Electronically Signed On 05-03-2021 13:51:17 CDT by Rafa Wright [email or web address] <ELECTRONICALLY SIGNED> By: Rafa Wright MD, FAC 05/03/21 1351 36 36 Rafa Wright MD, FAC /EPI
[2021-05-03 19:43] VITALS: BP 115/76
[2021-05-03 23:54] VITALS: BP 139/68
[2021-05-04 05:22] VITALS: BP 131/65
[2021-05-04 07:40] VITALS: BP 129/63
--- NOTE | 2021-05-04 11:01 | CON ---
[address] [address] CONSULTATION Name: SORAIDA BELTRAN Room: [address] IN M.R.#: [id number] Admission: 05/02/21 Attend Phys: Lázaro Ponce Discharge: Date of : 40 Report #: [id number] THIS REPORT FOR: cc: Anjum Purcell MD, Meng MD Blick, David R. MD [facility] ~ DATE OF CONSULTATION: 05/03/2021 HISTORY OF PRESENT ILLNESS: The patient is an 80-year-old white male who I was asked to see in the hospital today after he complained of being weak. The patient has an extensive past medical history. He apparently presented in 2015 with chest pain. He was admitted to [facility]. He was found to have multivessel coronary artery disease and underwent quadruple coronary bypass surgery. After surgery, he had episodes of intermittent atrial fibrillation. He required cardioversion both at [facility] and here at [facility] in the past. He underwent implantation of an MRI compatible dual chamber Biotronik pacemaker couple of years ago by Dr. Thompson. The patient is not very active because of his age and large size. He uses a walker. He still lives at home with his here in [place]. He was actually admitted this past February with palpitations, found to be in atrial fibrillation. He was started on intravenous diltiazem and started on sotalol and anticoagulation with Eliquis. He has chronic edema and wears compression hose. He has a history of anemia earlier this year with a hemoglobin of 10. He underwent upper endoscopy, showed no significant bleeding. Colonoscopy apparently showed a polyp. He actually just saw my nurse practitioner last week because of fatigue. He complains of no energy. He did have a cough. He has been vaccinated. My nurse practitioner fell and no episodes of atrial fibrillation on monitoring of his pacemaker. She made no changes to medications. The patient notes that 2 days ago, he was at home, he felt fatigued and weak. He could not stand. His called the ambulance. He was brought here to [facility] yesterday and admitted. He denies any chest pain, shortness of breath. He does have a cough. No increase in edema. He notes occasional episodes when his heart will skip. He has had no syncope. He denies any fever, vomiting, diarrhea. PAST MEDICAL HISTORY: He has had cataract extraction, diabetes, hypertension, hyperlipidemia, apparently had a stroke years ago, affecting his legs. He has had a history of bladder cancer and received chemotherapy and had a history of lymphoma, underwent bone marrow biopsy and chemotherapy. He has had a skin cancer in the past. CURRENT MEDICATIONS: Include amlodipine, Eliquis, Lasix, he takes about once a week for edema. He is on insulin, Imdur, losartan, metformin, omeprazole, Crestor, sotalol, Flomax. ALLERGIES: HE HAS PREVIOUS INTOLERANCE TO BEATA INHIBITORS AND [place] [address] CONSULTATION Name: SORAIDA BELTRAN Room: [address] IN .R.#: [id number] Admission: 05/02/21 Attend Phys: Lázaro Ponce Discharge: Date of : 40 Report #: [id number] FAMILY HISTORY: His father had heart disease. SOCIAL HISTORY: He is . He and his live in [place]. He quit smoking in 1968. He has about 3 drinks of alcohol a day. REVIEW OF SYSTEMS: He is overweight being 5 feet 8 inches, 265 pounds. He has sleep apnea, uses CPAP. No history of asthma, liver disease, kidney disease. He has had no recent GI bleeding. He saw a psychiatrist years ago for depression. PHYSICAL EXAMINATION: GENERAL: Revealed an obese elderly male, lying in bed, appeared in no acute distress. VITAL SIGNS: His blood pressure was 170/90, pulse is 100, he was afebrile. HEENT: He was anicteric, conjunctiva pink. Mucosa is moist. NECK: Veins cannot be assessed due to obesity. No carotid bruits. CHEST: Clear to auscultation. HEART: Regular rate and rhythm, no significant murmur. ABDOMEN: Obese. EXTREMITIES: Had no pitting edema. Dorsalis pedis pulse 1+ bilaterally. SKIN: Cool and dry. NEUROLOGIC: Nonfocal. LABORATORY DATA: His ECG on admission yesterday showed an AV sequentially paced rhythm at 70 beats per minute. On the monitor, the patient remained AV sequentially paced with occasional PVCs including a couplet and episodes of bigeminy. The patient had a cardiac catheterization a year ago here at [facility] showed chronic occlusion of the LAD and circumflex, only 60% narrowing of the right coronary artery with a patent HERNANDEZ graft to the LAD, patent vein graft to diagonal, circumflex, vein graft to the right coronary artery was occluded. The patient had an echocardiogram in 2019 that showed ejection fraction 55%, left atrial enlargement, mild mitral regurgitation. The patient had a portable chest x-ray in the Emergency Room that showed normal heart size, atelectasis. Previous CT scan of the head in March showed no acute abnormality. The patient's laboratory last night, creatinine is 1.1. His high sensitivity troponin was only 12. BNP 1801 in February. TSH is 1.5. His white blood cell count 9.9, hemoglobin 13.1. His potassium is 4.4, magnesium in February was 2.0. IMPRESSION AND RECOMMENDATIONS: 1. Coronary artery disease. Previous bypass surgery. The patient with stable angina. Since the patient is on Eliquis, I would not recommend aspirin. I would not recommend stress testing at this time. 2. Hypertension. Blood pressure noted to be elevated despite calcium winnie, [address] [place] [address] CONSULTATION Name: SORAIDA BELTRAN Ernie Room: [address] IN [facility].#: [id number] Admission: 05/02/21 Attend Phys: Lázaro Ponce Discharge: Date of : 40 Report #: [id number] ARB and beta winnie. 3. History of atrial fibrillation, no clinical recurrences, on sotalol. We will continue chronic anticoagulation with Eliquis. 4. Diabetes. 5. Hyperlipidemia. The patient is on a statin drug. 6. Sick sinus syndrome. The patient has a dual chamber pacemaker placed. 7. PVCs. Asymptomatic. 8. Fatigue. Suspect secondary to exercise intolerance and obesity. 9. Obesity. 10. Sleep apnea. The patient on CPAP. 11. Anemia. Negative for GI workup. 12. History of bladder cancer. 13. History of lymphoma with radiation therapy. 14. Excessive alcohol intake. Recommend alcohol in moderation only. 15. Previous tobacco abuse. Fortunately, the patient quit smoking in 1968. <ELECTRONICALLY SIGNED> By: Rafa Wright MD, [facility] 05/04/21 1101 0748 [id number] Dean Wright MD, FAC /nt
[2021-05-04 11:38] VITALS: BP 137/53
--- NOTE | 2021-05-04 11:55 | 2DMMODE ---
[place] [address] 2 D/M-MODE ECHOCARDIOGRAM Name: LADARIUSSORAIDA ROMERO Ernie Room: [address] IN [place]#: [id number] Admission: 05/02/21 Attend Phys: Jasmeet Castano Discharge: Date of : 40 Date of Service: 05/04/21 1154 Report #: [id number] THIS REPORT FOR: cc: Anjum Purcell MD, Meng MD Blick, David R. MD [facility] ~ APPROVED REPORT Study performed: 05/04/2021 09:42:51 EXAM: Comprehensive 2D, Doppler, and color-flow Echocardiogram Patient Location: In-Patient Room #: [facility] Status: routine BSA: 2.26 HR: 78 bpm BP: 129/63 mmHg Rhythm: NSR Other Information Study Quality: Good Indications Abnormal ECG Congestive Heart Failure 2D Dimensions IVSd: 14.59 (7-11mm) LVOT Diam: 23.72 (18-24mm) LVDd: 58.29 mm PWd: 13.03 (7-11mm) Ascending Ao: 35.25 (22-36mm) LVDs: 45.32 (25-40mm) Aortic Root: 33.23 mm Volumes Left Atrial Volume (Systole) LA ESV Index: 38.50 mL/m2 Aortic Valve AoV Peak Adrian.: 2.13 m/s AO Peak Gr.: 18.14 mmHg LVOT Max P.73 mmHg AO Mean Gr.: 10.85 mmHg LVOT Mean P.06 mmHg LVOT Max V: 0.97 m/s AO V2 VTI: 40.75 cm LVOT Mean V: 0.68 m/s SAI (VTI): 2.14 cm2 LVOT V1 VTI: 19[place]77 [place] [address] 2 D/M-MODE ECHOCARDIOGRAM Name: SORAIDA BELTRAN Room: [address] IN ..#: [id number] Admission: 05/02/21 Attend Phys: Jasmeet Castano Discharge: Date of : 40 Date of Service: 05/04/21 1154 Report #: [id number] Mitral Valve MV Mean Gr.: 2.83 mmHg E/A Ratio: 1.74 MV Decel. Time: 258.91 ms MV E Max Adrian.: 1.38 m/s MV PHT: 75.08 ms MVA (PHT): 2.93 cm2 Pulmonary Valve PV Peak Adrian.: 1.19 m/s PV Peak Gr.: 5.62 mmHg Tricuspid Valve RAP Estimate: 5.00 mmHg TR Peak Gr.: 25.40 mmHg RVSP: 30.00 mmHg PA Pressure: 30.00 mmHg Left Ventricle Left ventricle is mildly dilated. paradoxical septal motion noted Mild concentric left ventricular hypertrophy. Left ventricular systolic function is borderline. LVEF is 45-50%. The left ventricular diastolic function is normal. Right Ventricle The right ventricle is normal size. The right ventricular systolic function is normal. Pacemaker lead is present in the right ventricle. Atria Left atrium is mildly dilated. The right atrium size is normal. Aortic Valve Aortic valve is calcified. No aortic regurgitation is present. Mild aortic stenosis. Mitral Valve There is mitral annular calcification. The mitral valve is normal in structure. Mild mitral regurgitation. There is normal mitral valve excursion. Tricuspid Valve The tricuspid valve is normal in structure. Mild tricuspid regurgitation. estimated pa pressure 30 mm hg Pulmonic Valve The pulmonary valve is normal in structure. [place] [address] 2 D/M-MODE ECHOCARDIOGRAM Name: SORAIDA BELTRAN Room: [address] IN [facility]#: [id number] Admission: 05/02/21 Attend Phys: Jasmeet Castano Discharge: Date of : 40 Date of Service: 05/04/21 1154 Report #: [id number] Great Vessels The aortic root is normal in size. IVC is normal in size and collapses >50% with inspiration. Pericardium There is no pericardial effusion. <Conclusion> Mild concentric left ventricular hypertrophy. LVEF is 45-50%. Left atrium is mildly dilated. Mild aortic stenosis. Mild mitral regurgitation. Mild tricuspid regurgitation. estimated pa pressure 30 mm hg <ELECTRONICALLY SIGNED> By: Rafa Wright MD, FACC 05/04/21 1154 1154 1154 Rafa Wright MD, FACC /INF
[2021-05-04 15:39] VITALS: BP 152/59
[2021-05-04 20:00] VITALS: BP 162/69
[2021-05-05 00:10] VITALS: BP 159/84
[2021-05-05 04:39] VITALS: BP 129/62
[2021-05-05 08:00] VITALS: BP 131/70
[2021-05-05 12:00] VITALS: BP 147/65
[2021-05-05 16:00] VITALS: BP 105/53
[2021-05-05 20:00] VITALS: BP 150/75
[2021-05-06] VITALS: BP 157/76
[2021-05-06 04:30] VITALS: BP 138/73
[2021-05-06] MEDS ORDERED: AMOX TR-K CLV1 EAC4 PO (09:54)
[2021-05-06 13:16] VITALS: BP 138/73
== END 2021-05-06 14:24 | disposition home health service (06) | DRG 871 ==
LOC: M.ERS 11:47 → M.TBA-ER 13:22 → M.ORTHSURG 13:22
PROVIDERS: Family Medicine; ADMIT Internal Medicine; ATTEND Internal Medicine
DX: A41.9 Sepsis, unspecified organism (principal); J96.01 Acute respiratory failure with hypoxia; I50.33 Acute on chronic diastolic (congestive) heart failure; J84.9 Interstitial pulmonary disease, unspecified; N39.0 Urinary tract infection, site not specified; Z20.822 Contact with and (suspected) exposure to COVID-19; I25.10 Atherosclerotic heart disease of native coronary artery without angina pectoris; M19.90 Unspecified osteoarthritis, unspecified site; E78.5 Hyperlipidemia, unspecified; N40.0 Benign prostatic hyperplasia without lower urinary tract symptoms; E66.01 Morbid (severe) obesity due to excess calories; G89.29 Other chronic pain; I48.91 Unspecified atrial fibrillation; I49.3 Ventricular premature depolarization; D64.9 Anemia, unspecified; I49.5 Sick sinus syndrome; I11.0 Hypertensive heart disease with heart failure; E11.42 Type 2 diabetes mellitus with diabetic polyneuropathy; G47.33 Obstructive sleep apnea (adult) (pediatric); Z95.1 Presence of aortocoronary bypass graft; Z85.51 Personal history of malignant neoplasm of bladder; Z98.42 Cataract extraction status, left eye; Z86.73 Personal history of transient ischemic attack (TIA), and cerebral infarction without residual deficits; Z85.72 Personal history of non-Hodgkin lymphomas; Z98.41 Cataract extraction status, right eye; Z68.38 Body mass index [BMI] 38.0-38.9, adult; Z79.891 Long term (current) use of opiate analgesic; Z88.8 Allergy status to other drugs, medicaments and biological substances; Z92.21 Personal history of antineoplastic chemotherapy; Z82.49 Family history of ischemic heart disease and other diseases of the circulatory system; Z79.01 Long term (current) use of anticoagulants; Z87.891 Personal history of nicotine dependence; Z95.0 Presence of cardiac pacemaker; Z79.899 Other long term (current) drug therapy

== ENCOUNTER 2021-05-16 08:56 | Inpatient (IN) | payer MEDICARE ==
[~2021-05-16] VITALS: Ht 152.4 cm; Wt 117.0 kg
[~2021-05-16 08:56] MED LIST changes: +AMOX TR-K CLV1 EAC4 PO
[2021-05-16 08:57] VITALS: BP 136/84
[2021-05-16 09:26] LABS: ABSOLUTE BASOPHILS 0.1 thou/uL (0.0-0.2); ABSOLUTE EOSINOPHILS 0.2 thou/uL (0.0-0.7); ABSOLUTE LYMPHOCYTES 0.8 thou/uL (0.8-5.3); ABSOLUTE MONOCYTES 0.7 thou/uL (0.0-1.2); ABSOLUTE NEUTROPHILS 4.6 thou/uL (1.6-8.1); BASOPHILS 0.8 %; EOSINOPHILS 3.1 %; HEMATOCRIT 32.8 % (42.0-52.0); LYMPHOCYTES 12.7 %; MCH 32.6 pg (26.0-34.0); MCHC 33.5 g/dL (28.0-37.0); MCV 97.2 fL (80.0-100.0); MONOCYTES 10.8 %; NUCLEATED RBCS 0 /100WBC; PLATELET COUNT* 195 thou/uL (150-400); POLYS 72.6 %; RBC 3.37 mil/uL (4.50-6.00); RDW-CV 14.4 % (10.5-14.5); WBC 6.4 thou/uL (4.0-11.0)
--- NOTE | 2021-05-16 09:29 | EKG ---
[place] [address] ELECTROCARDIOGRAM REPORT Name: SROAIDA BELTRAN Room: [facility].#: [id number] Admission: Attend Phys: Discharge: Date of : 40 Date of Service: 05/16/21905 Report #: [id number] THIS REPORT FOR: //name// [facility] ED Test Date: 2021-05-16 Test Time: 09:06:19 Pat Name: SORAIDA BELTRAN Department: Room: Gender: Brand Lead: : 1940 Requested By: Rai Elias Order Number: [id number] MD: Rafa Wright Measurements Intervals [place] Rate: 85 P: OR: QRS: 10 QRSD: 164 T: 210 QT: 389 QTc: 463 Interpretive Statements Afib/flut and V-paced complexes No further rhythm analysis attempted due to paced rhythm Left bundle branch block Compared to ECG 05/02/2021 21:37:48 paced beats now present Electronically Signed On 05-16-2021 9:28:48 CDT by Rafa Wright [email or web address] <ELECTRONICALLY SIGNED> By: Rafa Wright MD, FAC 05/16/2128 5 5 Rafa Wright MD, [facility] /EPI
[2021-05-16 09:31] LABS: CALCIUM 8.9 mg/dL (8.5-10.1); CREATININE 1.3 mg/dL (0.6-1.3); POTASSIUM 5.4 mmol/L (3.5-5.1)
[2021-05-16 09:41] LABS: ALBUMIN 3.2 g/dL (3.4-5.0); TOTAL BILIRUBIN 0.4 mg/dL (<0.1-1.0); TOTAL PROTEIN 7.3 g/dL (6.4-8.2)
[2021-05-16 11:41] VITALS: BP 147/76
[2021-05-16 12:11] VITALS: BP 92/71
--- NOTE | 2021-05-16 12:57 | NUR ---
The patient is alert. Able to make needs known. Caraballo in place draining ko urine. LS diminshed. Right buttock bruise. Pedal edema 2+. V paced on the monitor. Oxygen at 2l. He's not on oxygen at home.
[2021-05-16 16:00] VITALS: BP 129/81
[2021-05-16 21:01] VITALS: BP 110/68
[2021-05-17] VITALS: BP 119/64
[2021-05-17 04:00] VITALS: BP 137/72
[2021-05-17 04:29] LABS: CALCIUM 8.7 mg/dL (8.5-10.1); CREATININE 1.5 mg/dL (0.6-1.3); POTASSIUM 5.2 mmol/L (3.5-5.1)
[2021-05-17 06:40] LABS: ABSOLUTE LYMPHOCYTES 0.7 thou/uL (0.8-5.3); ABSOLUTE MONOCYTES 0.4 thou/uL (0.0-1.2); ABSOLUTE NEUTROPHILS 4.6 thou/uL (1.6-8.1); BASOPHILS 0.1 %; HEMATOCRIT 29.2 % (42.0-52.0); HEMOGLOBIN 10.5 gm/dL (14.0-18.0); LYMPHOCYTES 11.7 %; MCH 34.6 pg (26.0-34.0); MCHC 35.8 g/dL (28.0-37.0); MCV 96.4 fL (80.0-100.0); MONOCYTES 6.7 %; MPV 10.3 fl. (7.2-11.1); NUCLEATED RBCS 0 /100WBC; PLATELET COUNT* 179 thou/uL (150-400); POLYS 81.5 %; RBC 3.03 mil/uL (4.50-6.00); RDW-CV 14.6 % (10.5-14.5); WBC 5.6 thou/uL (4.0-11.0)
[2021-05-17 08:00] VITALS: BP 135/67
--- NOTE | 2021-05-17 09:16 | CON ---
[address] [address] CONSULTATION Name: SORAIDA BELTRAN Room: [address] IN M.R.#: [id number] Admission: 05/16/21 Attend Phys: Tom Vieira MD Discharge: Date of : 40 Report #: [id number] THIS REPORT FOR: cc: Anjum Purcell MD, Meng MD Blick, David R. MD FAC ~ cc: Anjum Purcell MD DATE OF CONSULTATION: 05/16/2021 HISTORY OF PRESENT ILLNESS: The patient is an 80-year-old white male who I was asked to see in the hospital today after complaining of being short of breath. The patient has an extensive past medical history. He had multivessel bypass surgery at [place] about 5 years ago. He has had no recurrent chest pain. Two years ago, Dr. 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 The patient was actually just admitted to [facility] 2 weeks ago. He does have a history of atrial fibrillation and has required cardioversion in the past. The patient is not very active this time and uses a walker. He has been anticoagulated with Eliquis. He does have chronic edema and wears compression hose. He has a history of anemia. Previous endoscopy showed no bleeding. The patient was admitted 2 weeks ago, he complained of fatigue and he was noted to be in atrial fibrillation. When he was admitted to the hospital 2 weeks ago, he was in a sinus rhythm. He had an echocardiogram performed last 05/04/2021 here at [facility] that showed ejection fraction 45%, left ventricular hypertrophy, mild aortic stenosis. He actually had a nuclear stress test in 2019 here at [facility] that showed ejection fraction 48% with an inferior defect with asha-infarct ischemia. The patient states that when he went home, he was doing well. Unfortunately, recently, he has had increasing shortness of breath and edema. He has been coughing. No fever. He has had some increase in edema. He denies any palpitations, syncope or bleeding. Because of shortness of breath, he called EMS and was brought to the emergency room this morning. PAST MEDICAL HISTORY: Otherwise significant for bladder cancer, lymphoma, hypertension, diabetes, hyperlipidemia. ALLERGIES: HE HAS A PREVIOUS INTOLERANCE TO BEATA INHIBITORS. CURRENT MEDICATIONS: Consists of amlodipine, Eliquis, Lasix, insulin, losartan, metformin, rosuvastatin, sotalol. FAMILY HISTORY: His father had heart problems. 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 Quit smoking years ago, [place] [address] CONSULTATION Name: SORAIDA BELTRAN Room: [address] IN M.R.#: [id number] Admission: 05/16/21 Attend Phys: Tom Vieira MD Discharge: Date of : 40 Report #: [id number] REVIEW OF SYSTEMS: He is overweight, being 5 feet 8 inches, 260 pounds. He has a history of sleep apnea, uses CPAP. He had a stroke years ago in [place]. No history of asthma, liver disease, kidney disease, chronic skin condition, psychiatric illness. PHYSICAL EXAMINATION: GENERAL: Revealed a large elderly male, lying in bed, appeared in no acute distress. VITAL SIGNS: He had a blood pressure of 140/70, pulse 70, he is afebrile. HEENT: He was anicteric. Conjunctivae pink. Mucosa is moist. NECK: Veins difficult to assess due to obesity. No carotid bruits. CHEST: Clear to auscultation. HEART: Regular rate and rhythm. No murmur. ABDOMEN: Obese. It was protruding, nontender. No masses are palpated. EXTREMITIES: Had pitting edema up to mid tibial area. Dorsalis pedis pulse cannot be palpated. SKIN: Cool and dry. NEUROLOGIC: Nonfocal. LABORATORY DATA: His ECG showed what appears to represent atrial fibrillation with occasional paced beats with a left bundle branch block. His workup last night, he had a chest x-ray that showed small effusion, cardiomegaly, mild pulmonary vascular congestion. His lab work, sodium 131, potassium 5.4, creatinine 1.3. High sensitivity troponin was 13. BNP 3773. TSH in February was 1.5. White blood cell count 6.4, hematocrit 32.8. His COVID antigen stat test was negative. IMPRESSION AND RECOMMENDATIONS: 1. Atrial fibrillation. I would not recommend attempts at cardioversion. I would aim for rate control and chronic anticoagulation with Eliquis. I suspect he will need carvedilol for rate control. 2. Hypertension. I would discontinue amlodipine because of anemia. Continue ARB and beta winnie. 3. Diastolic heart failure. Recommend Lasix. 4. Diabetes. 5. Hyperlipidemia. The patient is on a statin drug. 6. Sleep apnea. 7. [place] [address] CONSULTATION Name: SORAIDA BELTRAN Room: [facility] ADM IN Ric.#: [id number] Admission: 05/16/21 Attend Phys: Tom Vieira MD Discharge: Date of : 40 Report #: [id number] 8. Coronary artery disease. No recent angina. Since the patient is on Eliquis, I would not recommend aspirin. <ELECTRONICALLY SIGNED> By: Rafa Wright MD, FACC 05/17/21 0916 1221 [id number] Wright MD, FACC /nt
--- NOTE | 2021-05-17 09:37 | NUR ---
The patient is alert. Vpaced afib on the monitor. Able to make needs known. Denies CP or SOB. 2+ pedal edema. BUE 1+. Carabalol intact and patent.
[2021-05-17 11:26] VITALS: BP 110/57
--- NOTE | 2021-05-17 14:56 | NUR ---
CM ASSESSMENT: PT A&O, INDEPENDENT WITH ADL'S AND ACTIVE. PT RESIDES AT HOME WITH SPOUSE AT THE [facility] INDEPENDENT AP[facility]. PT USES A WALKER FOR MOBILITY. PT USES BIPAP AT [facility] PATIENT. PT HAS 0 HX OF SNF. PT IS CURRENTLY ON-SERVICE WITH [facility], AND PLANS TO RESUME HH WITH [facility] AT D/C. PT HAS PAST HX OF INPT ARU HERE. CM WILL REMAIN AVAILABLE TO ASSIST AND FOLLOW NEEDED. [facility] PHONE: [phone] FAX: [phone]
[2021-05-17 16:00] VITALS: BP 135/58
--- NOTE | 2021-05-17 16:03 | EKG ---
[place] [address] ELECTROCARDIOGRAM REPORT Name: SORAIDA BELTRAN Room: [address] ADM IN M.R.#: [id number] Admission: 05/16/21 Attend Phys: Tom Vieira, Discharge: Date of : 40 Date of Service: 05/17/21 1521 Report #: [id number] THIS REPORT FOR: //name// [facility] Test Date: 2021-05-17 Test Time: 15:21:08 Pat Name: SORAIDA BELTRAN Department: Room: [address] Gender: M Line Maintainer Section: : 1940 Requested By: Rafa Wright Order Number: [id number] MD: Rafa Wright Measurements Intervals [place] Rate: 87 P: ME: QRS: 18 QRSD: 172 T: 208 QT: 407 QTc: 490 Interpretive Statements Atrial fibrillation and V-paced complexes No further rhythm analysis attempted due to paced rhythm Left bundle branch block Compared to ECG 05/16/2021 09:06:19 No significant changes Electronically Signed On 05-17-2021 16:03:44 CDT by Rafa Wright [email or web address] <ELECTRONICALLY SIGNED> By: Rafa Wright MD, FACC 05/17/21 1603 1521 1521 Rafa Wright MD, FAC /EPI
[2021-05-17 20:41] VITALS: BP 130/65
[2021-05-18 00:46] VITALS: BP 130/59
[2021-05-18 04:40] LABS: CALCIUM 8.9 mg/dL (8.5-10.1); CREATININE 1.4 mg/dL (0.6-1.3); POTASSIUM 4.5 mmol/L (3.5-5.1)
[2021-05-18 04:57] VITALS: BP 145/77
--- NOTE | 2021-05-18 05:41 | NUR ---
PT ALERT AND ORIENTED, 3L-NC AT 92%, UP WITH ASSISTANCE X2 TO BSC, GAUTAM IN PLACE, CLEAR YELLOW URINE OUTPUT. HE REPORTS NO PAIN OR NAUSEA BUT SOB ON EXERTION. LAST BM 05/15. AFIB ON MONITOR. EDEMA ON BLE AND UPPER EXTREMETIES +1. WHEEZING LUNG SOUNDS. RECEIVED ALL MEDS SCHEDULED. SLEPT WELL THIS SHIFT AND DID NOT REQUEST ANYTHING. WILL CONTINUE TO MONITOR.
[2021-05-18 12:00] VITALS: BP 141/64
--- NOTE | 2021-05-18 14:20 | NUR ---
CASE AND PLAN OF CARE REVIEWED WITH PHYSICIAN EACH WEEKDAY DURING PATIENT'S LENGTH OF STAY. Continue IV Lasix 40mg BID for diuresis. Work on transfer to rehab to work on strength and mobility
--- NOTE | 2021-05-18 15:26 | NUR ---
PLAN OF CARE: PHYSICIAN INFORMS PT NOT MEDICALLY STABLE AT THIS TIME. CARDIOLOGY FOLLOWING. PT/OT EVALS PENDING, AND WILL ASSIST WITH DETERMINING D/C PLAN FOR HOME WITH HH VS SNF PLACEMENT. CM WILL REMAIN AVAILABLE TO ASSIST AND FOLLOW NEEDED.
[2021-05-18 16:00] VITALS: BP 117/57
[2021-05-18 19:45] VITALS: BP 117/41
[2021-05-19 00:58] VITALS: BP 135/62
[2021-05-19 04:14] LABS: HEMATOCRIT 30.8 % (42.0-52.0); HEMOGLOBIN 10.4 gm/dL (14.0-18.0); MCH 32.8 pg (26.0-34.0); MCHC 33.8 g/dL (28.0-37.0); MPV 9.7 fl. (7.2-11.1); RBC 3.18 mil/uL (4.50-6.00); RDW-CV 14.8 % (10.5-14.5)
[2021-05-19 04:37] LABS: ALBUMIN 2.9 g/dL (3.4-5.0); CALCIUM 8.9 mg/dL (8.5-10.1); CREATININE 1.2 mg/dL (0.6-1.3); POTASSIUM 4.2 mmol/L (3.5-5.1); TOTAL BILIRUBIN 0.8 mg/dL (<0.1-1.0); TOTAL PROTEIN 6.8 g/dL (6.4-8.2)
[2021-05-19 06:17] VITALS: BP 121/52
[2021-05-19 07:55] VITALS: BP 134/54
[2021-05-19 11:53] VITALS: BP 118/52
--- NOTE | 2021-05-19 13:50 | NUR ---
Nutrition: Pt admitted with CHF exac. Seen for high BMI. Wt: 266#; pt stated his usual wt is 260#. Regular diet. He said he has a poor appetite d/t dislike of the food. He has a menu and knows about alternative ordering. Encouraged him to order foods that sound good to him and to have family bring in outside food if he desires. BG 153, alb 2.9. Meds reviewed. Low nutrition risk.
--- NOTE | 2021-05-19 15:36 | NUR ---
PLAN OF CARE: PHYSICIAN INFORMS OF PLAN TO CONSULT INPT ARU AND PT/OT. CM WILL REMAIN AVAILABLE TO ASSIST AND FOLLOW NEEDED.
--- NOTE | 2021-05-19 16:01 | NUR ---
Assumed care at 0730. Pt is alert and oirented. Assessment done and charted. Pt sat up in the chair with assistance. at the bedside. Pt had bowel movement today. Pt used the bedside commode. Will continue to provide care.
[2021-05-19 18:34] VITALS: BP 143/56
[2021-05-19 20:00] VITALS: BP 148/58; BP 178/72
[2021-05-20] VITALS: BP 140/58; BP 94/58
[2021-05-20 04:12] VITALS: BP 140/85
[2021-05-20 04:54] LABS: HEMATOCRIT 30.5 % (42.0-52.0); HEMOGLOBIN 10.3 gm/dL (14.0-18.0); MCH 32.9 pg (26.0-34.0); MCHC 33.7 g/dL (28.0-37.0); MCV 97.5 fL (80.0-100.0); MPV 9.6 fl. (7.2-11.1); RBC 3.13 mil/uL (4.50-6.00); RDW-CV 14.7 % (10.5-14.5); WBC 3.8 thou/uL (4.0-11.0)
[2021-05-20 05:25] LABS: ALBUMIN 2.7 g/dL (3.4-5.0); CALCIUM 8.9 mg/dL (8.5-10.1); CREATININE 1.3 mg/dL (0.6-1.3); MAGNESIUM 2.9 mg/dL (1.8-2.4); POTASSIUM 3.5 mmol/L (3.5-5.1); TOTAL BILIRUBIN 0.6 mg/dL (<0.1-1.0); TOTAL PROTEIN 6.3 g/dL (6.4-8.2)
--- NOTE | 2021-05-20 05:27 | NUR ---
PT ALERT AND ORIENTED AND USED CPAP AND NIGHT. HE IS UP WITH ASSISTANCE X2 TO THE BSC. GAUTAM IN PLACE, CLEAR YELLOW OUTPUT. HE DID NOT REPORT ANY PAIN OR NAUSEA. RECEIVED MEDS SCHEDULED. BLOOD PRESSURE LOW AT SEVERAL ASSESSMENTS, CHARTED.
[2021-05-20 08:00] VITALS: BP 122/74
[2021-05-20 12:00] VITALS: BP 124/47
--- NOTE | 2021-05-20 14:47 | NUR ---
PLAN OF CARE: PHYSICIAN INFORMS THAT PT IS MEDICALLY STABLE, AND OF PLAN TO CONSULT INPT ARU. IF ACCEPTED INPT ARU WILL NEED TO OBTAIN INSURANCE AUTH. CM WILL REMAIN AVAILABLE TO ASSIST AND FOLLOW NEEDED.
--- NOTE | 2021-05-20 15:47 | NUR ---
Assumed care at 0730. Pt is alert and oriented. Assessment done and charted. Pt sitting up in the chair. at the bedside. Pt had uneventful night. Will continue to care for paient.
[2021-05-20 16:00] VITALS: BP 150/85
[2021-05-20 20:40] VITALS: BP 147/66
[2021-05-21 00:52] VITALS: BP 111/52
[2021-05-21 05:27] LABS: CALCIUM 8.8 mg/dL (8.5-10.1); CREATININE 1.3 mg/dL (0.6-1.3); POTASSIUM 3.8 mmol/L (3.5-5.1)
[2021-05-21 06:42] VITALS: BP 125/52
--- NOTE | 2021-05-21 06:42 | NUR ---
PT AO X4 LYING IN BED FOR ASSESSMENT. PT LUNGS DIM WITH SOME FINE CRACKLES IN MIDDLE. PT DENIES COUGH, HE IS WEARING HOME CPAP AT HS. PT AMBULATED WITH STANDBY ASSIST TO BSC, HE HAD VERY SMALL BM, GAUTAM CATH HOLD ADEQUATE AMOUNT OF DARK YELLOW URINE. PT IS FLUID RESTRICTED AT 1500mL/DAY. PT HAS SOME 1+ EDEMA TO UPPER AND LOWER EXTREMITIES THAT IS NON PITTING. PT DENIES PAIN. BED ALARM ON FOR SAFETY, PT CALL LIGHT IN WITHIN REACH. PT MAKES NEEDS KNOWN UPON HOURLY ROUNDING.
[2021-05-21 08:00] VITALS: BP 132/52
[2021-05-21 12:00] VITALS: BP 121/50
[2021-05-21 16:00] VITALS: BP 129/54
--- NOTE | 2021-05-21 18:45 | NUR ---
STANDING WEIGHT OBTAINED AT 1800-254.0. PT DIURESED WELL TODAY. IV ALBUMIN AND IV LASIX GIVEN PER EMAR. PT SAT UP IN CHAIR FOR MEALS. GAUTAM TO BOLIVAR ANDRADE. TRACING V PACED ON THE OIL PLANT OPERATOR. ON RA SAT UPPER 90'S. DENIES ANY SHORTNESS OF BREATH OR PAIN THROUGHOUT SHIFT. CALL LIGHT WITHIN REACH. HOURLY ROUNDING OBSERVED. BED IN LOW POSITION. WILL CONTINUE PLAN OF CARE.
[2021-05-21 20:00] VITALS: BP 133/46
[2021-05-22 00:17] VITALS: BP 145/63
[2021-05-22 04:00] VITALS: BP 148/62
--- NOTE | 2021-05-22 05:01 | NUR ---
ASSUMED CARE OF PT AFTER REPORT AT 1930. PT A&OX4. VSS. PHYSICAL ASSESSMENT COMPLETED AND CHARTED. PT ON RA/CPAP AT HS. PT TRACING VPACED ON TELE. PT UP WITH 1 ASSIST. REMINDED ON FLUID RESTRICTION. PT WITH GAUTAM TO DEPENDENT DRAIN. PT DENIES ANY PAIN. FALL PRECAUTIONS IN PLACE. CALL LIGHT WITHIN REACH.
[2021-05-22 05:09] LABS: HEMATOCRIT 28.4 % (42.0-52.0); HEMOGLOBIN 9.7 gm/dL (14.0-18.0); MCH 33.2 pg (26.0-34.0); MCHC 34.1 g/dL (28.0-37.0); MCV 97.3 fL (80.0-100.0); MPV 9.5 fl. (7.2-11.1); RBC 2.92 mil/uL (4.50-6.00); RDW-CV 14.9 % (10.5-14.5); WBC 4.4 thou/uL (4.0-11.0)
[2021-05-22 05:35] LABS: ALBUMIN 2.8 g/dL (3.4-5.0); CALCIUM 8.5 mg/dL (8.5-10.1); CREATININE 1.3 mg/dL (0.6-1.3); MAGNESIUM 2.9 mg/dL (1.8-2.4); POTASSIUM 3.7 mmol/L (3.5-5.1); TOTAL BILIRUBIN 0.7 mg/dL (<0.1-1.0); TOTAL PROTEIN 5.9 g/dL (6.4-8.2)
[2021-05-22 07:50] VITALS: BP 134/51
[2021-05-22 12:20] VITALS: BP 143/53
--- NOTE | 2021-05-22 15:41 | NUR ---
PT AMBULATED IN HALLWAY WITH NURSING STAFF THIS AFTERNOON-TOLERATED FAIR. WEAKNESS NOTED. REMAINS AT BEDSIDE AND UPDATED ON CURRENT PLAN OF CARE. PT DENIES ANY PAIN OR SHORTNESS OF BREATH THROUGHOUT SHIFT. TRACING AV/V PACED ON THE GROOVER AND STRIPER OPERATOR. ON RA SAT UPPER 90'S. PT UP WITH 1 ASSIST WALKER AND GAIT BELT TO BATHROOM. GAUTAM TO DEPENDENT DRAINAGE. GOOD URINE OUTPUT TODAY-REFER TO I/O. PT PROGRESSING TOWARDS GOALS AND PROBABLE DISCHARGE TO ARU TOMORROW 05/23. AM ASSESSMENT CHARTED. MEDICATIONS PER OCT. PT EDUCATED ON REPOSITIONING EVERY 2 HOURS. PT REMAINS IN RECLINER MOST OF DAY STATING "I SHIFT MY WEIGHT FREQUENTLY". HOURLY ROUNDING OBSERVED. CHAIR ALARM IN PLACE. FALL PRECAUTIONS IN PLACE. CALL LIGHT WITHIN REACH. WILL CONTINUE PLAN OF CARE.
[2021-05-22 16:00] VITALS: BP 138/54
[2021-05-22 20:00] VITALS: BP 133/58
[2021-05-23] VITALS (7 sets, daily range): BP systolic 119–161; BP diastolic 42–65
--- NOTE | 2021-05-23 04:31 | NUR ---
ASSUMED CARE OF PT AFTER REPORT AT 1930. PT A&OX4. VSS. PHYSICAL ASSESSMENT COMPLETED AND CHARTED. PT ON RA/CPAP AT HS. PT TRACING VPACED ON TELE. PT UP WITH 1 ASSIST. PT WITH DAIN TO DEPENDENT DRAIN. PT DENIES PAIN. FALL PRECAUTIONS IN PLACE. CALL LIGHT WITHIN REACH.
--- NOTE | 2021-05-23 13:40 | NUR ---
PLAN OF CARE: PHYSICIAN INFORMS THAT THE PT IS NOW MEDICALLY STABLE TO D/C TO INPT ARU. INPT ARU INFORMS OF PLAN TO START INUSURANCE AUTH TODAY. CM WILL REMAIN AVAILABLE TO ASSIST AND FOLLOW NEEDED.
[2021-05-23 20:10] LABS: ABSOLUTE EOSINOPHILS 0.2 thou/uL (0.0-0.7); ABSOLUTE MONOCYTES 0.9 thou/uL (0.0-1.2); ABSOLUTE NEUTROPHILS 5.3 thou/uL (1.6-8.1); BASOPHILS 0.4 %; EOSINOPHILS 2.5 %; HEMATOCRIT 30.7 % (42.0-52.0); HEMOGLOBIN 10.5 gm/dL (14.0-18.0); LYMPHOCYTES 12.9 %; MCH 32.9 pg (26.0-34.0); MCHC 34.2 g/dL (28.0-37.0); MCV 96.2 fL (80.0-100.0); MONOCYTES 12.6 %; MPV 9.4 fl. (7.2-11.1); NUCLEATED RBCS 0 /100WBC; PLATELET COUNT* 215 thou/uL (150-400); POLYS 71.6 %; RDW-CV 15.1 % (10.5-14.5); WBC 7.4 thou/uL (4.0-11.0)
[2021-05-23 20:25] LABS: CALCIUM 8.4 mg/dL (8.5-10.1); CREATININE 1.4 mg/dL (0.6-1.3); MAGNESIUM 2.2 mg/dL (1.8-2.4); POTASSIUM 3.8 mmol/L (3.5-5.1)
[2021-05-24 04:53] VITALS: BP 133/52
[2021-05-24 08:27] VITALS: BP 126/53
[2021-05-24 12:00] VITALS: BP 133/52
--- NOTE | 2021-05-24 15:11 | NUR ---
states insurance denied rehab. Pt not agreeable to go to skilled. Pt req resuming home health for d/c. Dr Castano paged at this time with this informtaion.
--- NOTE | 2021-05-24 15:22 | NUR ---
pts gonzalez removed, no complications.
[2021-05-24 15:47] VITALS: BP 133/52
[2021-05-24] MEDS ORDERED: DEMADEX20 MG PO (15:55)
[2021-05-24] MEDS ORDERED: CARDIZEM CD240 M1 PO (15:55)
[2021-05-24] MEDS ORDERED: PROTONIX40 M2 PO (15:55)
[2021-05-24] MEDS ORDERED: SPIRONOLACTONE25 MG PO (15:55)
[2021-05-24 16:10] VITALS: BP 133/52
[2021-05-24 16:11] VITALS: BP 133/52
--- NOTE | 2021-05-24 16:32 | NUR ---
WENT OVER D/C INSTRUCTIONS AND CHF INSTRUCTIONS WITH PT AND PTS . BOTH WERE AWARE OF DAILY WEIGHTS, SODIUM LIMITING AND FLUID RESTIRCTION. F/U WITH [facility] OR PCP WITHIN 1 WEEK. BOTH VERBALIZE UNDERSTANIDNG. ALL QUESTIONS ANSWERED. IV AND TELE REMOVED. TO DRIVE PT HOME .
== END 2021-05-24 17:00 | disposition home or self-care (01) | DRG 291 ==
LOC: M.ERS 08:56 → M.TBA-ER 10:19 → M.2W 10:19
PROVIDERS: Family Medicine; Internal Medicine; Internal Medicine Cardiovascular Disease; ADMIT Internal Medicine; ATTEND Internal Medicine
PROC: 5A0935A Assistance with Respiratory Ventilation, Less than 24 Consecutive Hours, High Flow/Velocity Cannula (ICD-10-PCS; principal; 2021-05-18)
PROC: 5A09457 Assistance with Respiratory Ventilation, 24-96 Consecutive Hours, Continuous Positive Airway Pressure (ICD-10-PCS; 2021-05-19)
DX: I11.0 Hypertensive heart disease with heart failure (principal); N17.0 Acute kidney failure with tubular necrosis; I50.33 Acute on chronic diastolic (congestive) heart failure; J96.20 Acute and chronic respiratory failure, unspecified whether with hypoxia or hypercapnia; Z68.43 Body mass index [BMI] 50.0-59.9, adult; E66.01 Morbid (severe) obesity due to excess calories; Z20.822 Contact with and (suspected) exposure to COVID-19; I25.10 Atherosclerotic heart disease of native coronary artery without angina pectoris; M19.90 Unspecified osteoarthritis, unspecified site; E78.5 Hyperlipidemia, unspecified; N40.0 Benign prostatic hyperplasia without lower urinary tract symptoms; G89.29 Other chronic pain; I48.91 Unspecified atrial fibrillation; J44.9 Chronic obstructive pulmonary disease, unspecified; G47.33 Obstructive sleep apnea (adult) (pediatric); E11.42 Type 2 diabetes mellitus with diabetic polyneuropathy; D64.9 Anemia, unspecified; R53.81 Other malaise; Z86.73 Personal history of transient ischemic attack (TIA), and cerebral infarction without residual deficits; Z95.1 Presence of aortocoronary bypass graft; Z98.41 Cataract extraction status, right eye; Z85.51 Personal history of malignant neoplasm of bladder; Z85.72 Personal history of non-Hodgkin lymphomas; Z98.42 Cataract extraction status, left eye; Z95.0 Presence of cardiac pacemaker; Z88.8 Allergy status to other drugs, medicaments and biological substances; Z82.49 Family history of ischemic heart disease and other diseases of the circulatory system; Z87.891 Personal history of nicotine dependence; Z79.01 Long term (current) use of anticoagulants

== ENCOUNTER 2021-05-31 13:38 | Emergency (ER) | payer MEDICARE ==
[~2021-05-31] VITALS: Ht 177.8 cm; Wt 117.9 kg
[~2021-05-31 13:38] MED LIST changes: +CARDIZEM CD240 M1 PO; +DEMADEX20 MG PO; +PROTONIX40 M2 PO; +SPIRONOLACTONE25 MG PO
--- NOTE | 2021-05-31 15:04 | EKG ---
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: [facility] : 1940 Requested By: Rai Elias Order Number: [id number] MD: Rafa Wright Measurements Intervals [place] Rate: 90 P: [place]: QRS: 16 QRSD: 177 T: 158 QT: 387 QTc: 474 Interpretive Statements Atrial fibrillation Left bundle branch block Compared to ECG 05/17/2021 15:21:08 Ventricular-paced complex(es) or rhythm no longer present Electronically Signed On 05-31-2021 15:03:55 CDT by Rafa Wright [email or web address] <ELECTRONICALLY SIGNED> By: Rafa Wright MD, FAC 05/31/21 1503 1440 1440 Rafa Wright MD, [facility] /EPI
[2021-05-31] MEDS ORDERED: TRAMADOL 50 MG50 MG PO (15:05)
[2021-05-31] MEDS ORDERED: BACTRIM DS TAB1 EACH PO (15:05)
[2021-05-31] MEDS ORDERED: CEPHALEXIN500 MG PO (15:05)
[2021-05-31] MEDS ORDERED: HYDROCODON-ACE1 EAC7 PO (16:16)
[2021-05-31 16:26] VITALS: BP 142/63
== END 2021-05-31 16:28 | disposition home or self-care (01) ==
LOC: M.ERS 13:38
DX: L89.312 Pressure ulcer of right buttock, stage 2 (principal); E11.9 Type 2 diabetes mellitus without complications; I10 Essential (primary) hypertension; M19.90 Unspecified osteoarthritis, unspecified site; E78.5 Hyperlipidemia, unspecified; E66.01 Morbid (severe) obesity due to excess calories; Z79.4 Long term (current) use of insulin; Z79.899 Other long term (current) drug therapy; Z88.8 Allergy status to other drugs, medicaments and biological substances

== ENCOUNTER → 2021-06-07 | Outpatient (CLI) | payer MEDICARE ==
[~2021-06-07] MED LIST changes: +BACTRIM DS TAB1 EACH PO; +CEPHALEXIN500 MG PO; +HYDROCODON-ACE1 EAC7 PO; +TRAMADOL 50 MG50 MG PO
== END ==
LOC: M.WC 12:02
PROVIDERS: ATTEND Emergency Medicine Undersea and Hyperbaric Medicine
DX: E11.622 Type 2 diabetes mellitus with other skin ulcer (principal); L89.323 Pressure ulcer of left buttock, stage 3; L98.411 Non-pressure chronic ulcer of buttock limited to breakdown of skin; L84 Corns and callosities; E11.40 Type 2 diabetes mellitus with diabetic neuropathy, unspecified; E78.5 Hyperlipidemia, unspecified; E66.9 Obesity, unspecified; G20 Parkinson's disease; G47.30 Sleep apnea, unspecified; I11.0 Hypertensive heart disease with heart failure; I50.9 Heart failure, unspecified; I25.10 Atherosclerotic heart disease of native coronary artery without angina pectoris; N40.0 Benign prostatic hyperplasia without lower urinary tract symptoms; M19.90 Unspecified osteoarthritis, unspecified site; Z85.51 Personal history of malignant neoplasm of bladder; Z85.828 Personal history of other malignant neoplasm of skin; Z87.891 Personal history of nicotine dependence; Z95.0 Presence of cardiac pacemaker; Z68.39 Body mass index [BMI] 39.0-39.9, adult; Z86.73 Personal history of transient ischemic attack (TIA), and cerebral infarction without residual deficits

== ENCOUNTER 2021-06-08 11:37 | Inpatient (IN) | payer MEDICARE ==
[~2021-06-08] VITALS: Ht 172.7 cm; Wt 125.6 kg
--- NOTE | ~2021-06-08 | EEG ---
[address] [address] EEG STUDY REPORT Name: SORAIDA BELTRAN Room: [address] IN M.R.#: [id number] Admission: 06/08/21 Attend Phys: Lázaro Kenny Discharge: Date of : 40 Report #: [id number] THIS REPORT FOR: cc: Anjum Purcell MD, Meng MD Khosla,Allen Duong MD ~ DATE OF SERVICE: 06/14/2021 This patient is being evaluated for altered mental status. EEG was done by placing the electrode by standard 10-20 system of electrode placement. Both referential and sequential montages were used for recording. Background activity is somewhat poorly formed and appeared to go up to about 8-9 Hz and 30 microvolt. Photic stimulation is unremarkable. The patient became drowsy and that is associated with bilateral slowing. No active epileptiform activity was noticed. IMPRESSION: This patient is slow and somewhat poorly formed that a nonspecific abnormality which can occur with dementia, encephalopathy, effect of psychotropic medication, etc. Clinical correlation is recommended. By: [id number] Rice MD /nt
--- NOTE | ~2021-06-08 | CARD ---
[address] [address] CARDIAC CATH REPORT Name: SORAIDA BELTRAN Room: [address] IN .R#: [id number] Admission: 06/08/21 Attend Phys: Lázaro Kenny Discharge: 06/24/21 Date of : 40 Report #: [id number] THIS REPORT FOR: cc: Anjum Purcell MD, Meng MD Liston, Michael J. MD FACC ~ cc: Anjum Purcell DATE OF SERVICE: 06/24/2021 CARDIAC PROCEDURE INDICATION: Recurrent persistent atrial fibrillation. PROCEDURE: DC cardioversion. PROCEDURE DESCRIPTION: After informed consent was obtained, the patient was brought to the cardiac holding area. The patient was given intravenous Versed and fentanyl for conscious sedation. He received 50 mcg of intravenous fentanyl and 2 mg of intravenous Versed. Once adequate sedation was achieved, the patient was cardioverted from atrial fibrillation to an ventricularly paced rhythm. The patient tolerated the procedure without complication. The patient was returned to his room in stable condition. IMPRESSION: 1. Persistent atrial fibrillation. 2. Successful direct-current cardioversion to an atrioventricular sequentially paced rhythm. By: [id number] Thompson MD, FACC /nt
[2021-06-08 11:40] VITALS: BP 130/55
[2021-06-08 12:03] LABS: ABSOLUTE EOSINOPHILS 0.1 thou/uL (0.0-0.7); ABSOLUTE LYMPHOCYTES 0.7 thou/uL (0.8-5.3); ABSOLUTE MONOCYTES 0.5 thou/uL (0.0-1.2); ABSOLUTE NEUTROPHILS 4.4 thou/uL (1.6-8.1); BASOPHILS 0.4 %; EOSINOPHILS 1.8 %; HEMATOCRIT 28.2 % (42.0-52.0); HEMOGLOBIN 9.6 gm/dL (14.0-18.0); LYMPHOCYTES 12.9 %; MCH 32.3 pg (26.0-34.0); MCHC 33.9 g/dL (28.0-37.0); MCV 95.3 fL (80.0-100.0); MONOCYTES 8.3 %; MPV 8.7 fl. (7.2-11.1); NUCLEATED RBCS 0 /100WBC; PLATELET COUNT* 207 thou/uL (150-400); POLYS 76.6 %; RBC 2.96 mil/uL (4.50-6.00); RDW-CV 15.8 % (10.5-14.5); WBC 5.7 thou/uL (4.0-11.0)
[2021-06-08 12:27] LABS: CALCIUM 8.9 mg/dL (8.5-10.1); CREATININE 3.4 mg/dL (0.6-1.3); POTASSIUM 5.8 mmol/L (3.5-5.1)
[2021-06-08 12:38] LABS: ALBUMIN 2.9 g/dL (3.4-5.0); TOTAL BILIRUBIN 0.4 mg/dL (<0.1-1.0); TOTAL PROTEIN 7.1 g/dL (6.4-8.2)
[2021-06-08 16:00] VITALS: BP 113/38
[2021-06-08 16:25] VITALS: BP 112/51
[2021-06-08 16:26] VITALS: BP 112/51
[2021-06-08 19:45] VITALS: BP 109/48
[2021-06-09] VITALS (8 sets, daily range): BP systolic 92–122; BP diastolic 48–66
[2021-06-09 04:27] LABS: CALCIUM 8.9 mg/dL (8.5-10.1); CREATININE 3.2 mg/dL (0.6-1.3); POTASSIUM 5.6 mmol/L (3.5-5.1)
--- NOTE | 2021-06-09 08:09 | EKG ---
[place] [address] ELECTROCARDIOGRAM REPORT Name: SORAIDA BELTRAN Room: [address] ADM IN M.R.#: [id number] Admission: 06/08/21 Attend Phys: Emmie Keys Discharge: Date of : 40 Date of Service: 06/08/21 1146 Report #: [id number] THIS REPORT FOR: //name// [facility] ED Test Date: 2021-06-08 Test Time: 11:46:46 Pat Name: SORAIDA BELTRAN Department: Room: [facility] Gender: M Central Melt Specialist: ALEYDA : 1940 Requested By: Darrel Salguero Order Number: [id number] MD: Blair Thompson Measurements Intervals [place] Rate: 69 P: ID: QRS: -77 QRSD: 203 T: 80 QT: 487 QTc: 522 Interpretive Statements Atrial fibrillation Nonspecific IVCD with LAD Left ventricular hypertrophy Compared to ECG 05/31/2021 14:40:25 Intraventricular conduction delay now present Left ventricular hypertrophy now present Electronically Signed On 06-09-2021 8:08:58 CDT by Blair Thompson [email or web address] <ELECTRONICALLY SIGNED> By: Blair Thompson MD, FACC 06/09/21 0808 1146 1146 Blair Thompson MD, FACC /EPI
--- NOTE | 2021-06-09 08:13 | CON ---
[facility] [address] [place] [address] CONSULTATION Name: SORAIDA BELTRAN Room: [address] IN M.R.#: [id number] Admission: 06/08/21 Attend Phys: Lázaro Kenny Discharge: Date of : 40 Report #: [id number] THIS REPORT FOR: cc: Anjum Purcell MD, Meng MD Liston, Michael J. MD [facility] ~ DATE OF CONSULTATION: 06/08/2021 INDICATION: Grmcc-qv-jjlsdbl combined heart failure. HISTORY OF PRESENT ILLNESS: The patient is a very pleasant 80-year-old gentleman who is well known to our service. He presented to the office today with gross volume overload and shortness of breath. He has a history of coronary artery disease with multivessel bypass surgery 5 years ago at [facility]. He has a history of dual chamber pacemaker placement for symptomatic bradycardia and paroxysmal atrial fibrillation. He presented to the office today in recurrent atrial fibrillation. He has chronic anticoagulation with Eliquis. I believe his atrial fibrillation is contributing to volume overload. By echocardiogram, his EF is 45%. A nuclear stress test showed inferior wall defect with asha-infarct ischemia and EF 40%. PAST MEDICAL HISTORY: 1. Coronary artery disease. 2. Coronary artery bypass grafting. 3. Combined heart failure. 4. History of bladder cancer. 5. History of lymphoma. 6. Hypertension. 7. Diabetes. 8. Hyperlipidemia. 9. Chronic renal insufficiency. ALLERGIES: BEATA INHIBITORS. CURRENT MEDICATIONS: Diltiazem, Eliquis, torsemide, insulin, losartan, metformin, rosuvastatin, and sotalol. FAMILY HISTORY: Positive for heart disease. SOCIAL HISTORY: The patient quit smoking many years ago. Drinks alcohol rarely. REVIEW OF SYSTEMS: Positive for shortness of breath and dyspnea, orthopnea, [facility] [address] [facility] [place] [address] CONSULTATION Name: SORAIDA BELTRAN Room: [address] IN [facility]#: [id number] Admission: 06/08/21 Attend Phys: Lázaro Kenny Discharge: Date of : 40 Report #: [id number] joint discomfort. PHYSICAL EXAMINATION: VITAL SIGNS: Blood pressure is 120/38, pulse is irregular in the 60s. GENERAL: This is an obese, pleasant white male in no distress. Mood and affect appropriate. HEENT: Extraocular muscles intact. Mucous membranes are moist. NECK: Examination of the neck shows thick neck without obvious jugular venous distension. ____ without gallop or murmur. ABDOMEN: Reveals a protuberant abdomen with positive bowel sounds. EXTREMITIES: Shows 4+ edema to the thighs bilaterally. LABORATORY DATA: Labs are evaluated. Sodium 132, potassium 5.8, chloride 97, bicarbonate 24, BUN 77, creatinine 3.4, serum glucose 114. LFTs within normal limits. NT-proBNP 3650. Troponins are unremarkable. White blood cell count 5.7, hemoglobin 9.6, platelet count 207,000. Chest x-ray shows cardiomegaly. IMPRESSION AND RECOMMENDATIONS: 1. Acute on chronic combined heart failure with gross volume overload. We will attempt furosemide drip, Caraballo catheter placement for diuresis. Follow up labs in a.m. 2. Coronary artery disease, presently stable. He is not having signs or symptoms of angina or acute coronary syndrome. 3. Hypertension. Blood pressure presently well controlled. 4. Dyslipidemia, statin agent on discharge. 5. Atrial fibrillation with recurrence. Continue him on sotalol. EKG in a.m. Consider cardioversion. ____. <ELECTRONICALLY SIGNED> By: Blair Thompson MD, FACC 06/09/21 0813 1639 2118Micmani Thompson MD, FACC /nt
[2021-06-09 13:08] LABS: URINE BILIRUBIN NEGATIVE (Negative); URINE BLOOD TRACE (Negative); URINE CLARITY CLEAR; URINE COLOR YELLOW; URINE GLUCOSE-RANDOM NEGATIVE (Negative); URINE KETONES NEGATIVE (Negative); URINE LEUKOCYTES NEGATIVE (Negative); URINE NITRITE NEGATIVE (Negative); URINE PROTEIN NEGATIVE (Negative); URINE SPECIFIC GRAVITY 1.015 (1.005-1.030); URINE UROBILINOGEN 0.2 E.U./dl (0.2-1.0)
--- NOTE | 2021-06-09 14:03 | EKG ---
[place] [address] ELECTROCARDIOGRAM REPORT Name: SORAIDA BELTRAN Room: [address] ADM IN M.R.#: [id number] Admission: 06/08/21 Attend Phys: Emmie Keys Discharge: Date of : 40 Date of Service: 06/09/21 1110 Report #: [id number] THIS REPORT FOR: //name// [facility] Test Date: 2021-06-09 Test Time: 11:10:38 Pat Name: SORAIDA BELTRAN Department: Room: [address] Gender: M Corporate Quality Manager: : 1940 Requested By: Blair Thompson Order Number: [id number] Reading MD: Blair Thompson Measurements Intervals [place] Rate: 69 P: 0 NV: 77 QRS: -79 QRSD: 202 T: 87 QT: 526 QTc: 564 Interpretive Statements Ventricular-paced rhythm No further analysis attempted due to paced rhythm Compared to ECG 06/08/2021 11:46:46 Atrial fibrillation no longer present Intraventricular conduction delay no longer present Left ventricular hypertrophy no longer present Electronically Signed On 06-09-2021 14:03:39 CDT by Blair Thompson [email or web address] <ELECTRONICALLY SIGNED> By: Blair Thompson MD, FACC 06/09/21 1403 1110 1110 Blair Thompson MD, FACC /EPI
--- NOTE | 2021-06-09 17:00 | 2DMMODE ---
[place] [address] 2 D/M-MODE ECHOCARDIOGRAM Name: SORAIDA BELTRAN Room: [address] ADM IN [facility]#: [id number] Admission: 06/08/21 Attend Phys: Emmie Keys Discharge: Date of : 40 Date of Service: 06/09/21 1700 Report #: [id number] THIS REPORT FOR: cc: Anjum Purcell MD, Meng MD Liston, Michael J. MD [facility] ~ APPROVED REPORT Study performed: 06/09/2021 14:39:41 EXAM: Limited 2D Echocardiogram Patient Location: In-Patient Room #: [facility] Status: routine BSA: 2.36 BP: 97/49 mmHg Rhythm: NSR Other Information Study Quality: Good Indications Dyspnea Tricuspid Valve RAP Estimate: 5.00 mmHg TR Peak Gr.: 25.03 mmHg RVSP: 30.00 mmHg PA Pressure: 30.00 mmHg Left Ventricle Left ventricle is mildly dilated. There is global hypokinesis of the left ventricle. Mild concentric left ventricular hypertrophy. Left ventricular ejection fraction is moderate to severely decreased. LVEF is 30-35%. Right Ventricle Right ventricle is mildly dilated. The right ventricular systolic function is normal. Atria Left atrium is mildly dilated. Right atrium is mildly dilated. Aortic Valve [facility] [address] [place] [address] 2 D/M-MODE ECHOCARDIOGRAM Name: SORAIDA BELTRAN Room: [address] ADM IN M.R.#: [id number] Admission: 06/08/21 Attend Phys: Emmie Keys Discharge: Date of : 40 Date of Service: 06/09/211699 Report #: [id number] Mild aortic valve sclerosis. Mitral Valve There is mitral annular calcification. Tricuspid Valve The tricuspid valve is normal in structure. Trace tricuspid regurgitation. Great Vessels The aortic root is normal in size. IVC is dilated. Pericardium There is no pericardial effusion. <Conclusion> Left ventricle is mildly dilated. Mild concentric left ventricular hypertrophy. Left ventricular ejection fraction is moderate to severely decreased. LVEF is 30-35%. Left atrium is mildly dilated. Right atrium is mildly dilated. Mild aortic valve sclerosis. There is mitral annular calcification. Trace tricuspid regurgitation. IVC is dilated. <ELECTRONICALLY SIGNED> By: Blair Thompson MD, FACC 06/09/211699 99 99 Blair Thompson MD, FACC /INF
[2021-06-10] VITALS (7 sets, daily range): BP systolic 93–126; BP diastolic 40–55
[2021-06-10 04:07] LABS: HEMATOCRIT 26.4 % (42.0-52.0); MCH 32.6 pg (26.0-34.0); MCHC 34.3 g/dL (28.0-37.0); MCV 95.2 fL (80.0-100.0); MPV 8.9 fl. (7.2-11.1); RBC 2.77 mil/uL (4.50-6.00); RDW-CV 15.8 % (10.5-14.5); WBC 5.3 thou/uL (4.0-11.0)
[2021-06-10 04:24] LABS: ALBUMIN 2.5 g/dL (3.4-5.0); CALCIUM 8.7 mg/dL (8.5-10.1); CHOLESTEROL 98 mg/dL (<200); CREATININE 2.9 mg/dL (0.6-1.3); HDL CHOLESTEROL 74 mg/dL (>40); LDL CHOLESTEROL 12 mg/dL (<100); MAGNESIUM 2.2 mg/dL (1.8-2.4); TC:HDL 1.3 Ratio (Not establshd); TOTAL BILIRUBIN 0.4 mg/dL (<0.1-1.0); TOTAL PROTEIN 6.4 g/dL (6.4-8.2); TRIGLYCERIDE 61 mg/dL (<150); VLDL 12 mg/dL (<40)
[2021-06-10 04:29] LABS: SERUM ASSESSMENT CLEAR
[2021-06-10 04:30] LABS: POTASSIUM 4.1 mmol/L (3.5-5.1)
[2021-06-10 04:58] LABS: % SATURATION 14 % (20-39); IRON 31 ug/dL (50-175)
--- NOTE | 2021-06-10 17:28 | EKG ---
[place] [address] ELECTROCARDIOGRAM REPORT Name: RUBYSORAIDA Ernie Room: [address] ADM IN M.R.#: [id number] Admission: 06/08/21 Attend Phys: Emmie Keys Discharge: Date of : 40 Date of Service: 06/10/21 0840 Report #: [id number] THIS REPORT FOR: //name// [facility] Test Date: 2021-06-10 Test Time: 08:40:31 Pat Name: SORAIDA BLETRAN Department: Room: [address] Gender: M Build And Deployment Engineer: : 1940 Requested By: Blair Thompson Order Number: [id number] Reading MD: Blair Thompson Measurements Intervals [place] Rate: 87 P: MA: QRS: 33 QRSD: 193 T: 202 QT: 467 QTc: 562 Interpretive Statements Afib/flut and V-paced complexes No further rhythm analysis attempted due to paced rhythm IVCD, consider atypical LBBB Baseline wander in lead(s) V1 Compared to ECG 06/09/2021 11:10:38 No significant changes Electronically Signed On 06-10-2021 17:28:07 CDT by Blair Thompson [email or web address] <ELECTRONICALLY SIGNED> By: Blair Thompson MD, FACC 06/10/21 1728 9 9 Blair Thompson MD, FAC /EPI
[2021-06-11] VITALS: BP 90/55
[2021-06-11 04:32] VITALS: BP 119/52
[2021-06-11 05:07] LABS: GLYCOHEMOGLOBIN (HGB A1C) 6.1 % (4.8-5.6)
[2021-06-11 05:57] LABS: HEMATOCRIT 24.4 % (42.0-52.0); HEMOGLOBIN 8.3 gm/dL (14.0-18.0); MCH 32.2 pg (26.0-34.0); MCHC 34.1 g/dL (28.0-37.0); MCV 94.3 fL (80.0-100.0); RBC 2.59 mil/uL (4.50-6.00); RDW-CV 15.9 % (10.5-14.5); WBC 4.8 thou/uL (4.0-11.0)
[2021-06-11 06:11] LABS: ALBUMIN 2.2 g/dL (3.4-5.0); CALCIUM 8.5 mg/dL (8.5-10.1); CREATININE 2.5 mg/dL (0.6-1.3); MAGNESIUM 2.1 mg/dL (1.8-2.4); POTASSIUM 3.9 mmol/L (3.5-5.1); TOTAL BILIRUBIN 0.4 mg/dL (<0.1-1.0)
[2021-06-11 08:00] VITALS: BP 101/50
[2021-06-11 13:01] VITALS: BP 144/82
[2021-06-11 17:33] VITALS: BP 146/77
[2021-06-11 20:00] VITALS: BP 108/45
[2021-06-12] VITALS (7 sets, daily range): BP systolic 109–120; BP diastolic 42–57
[2021-06-12 09:28] LABS: HEMATOCRIT 26.1 % (42.0-52.0); MCH 32.4 pg (26.0-34.0); MCHC 34.6 g/dL (28.0-37.0); MCV 93.8 fL (80.0-100.0); MPV 8.3 fl. (7.2-11.1); RBC 2.78 mil/uL (4.50-6.00); RDW-CV 15.8 % (10.5-14.5); WBC 4.8 thou/uL (4.0-11.0)
[2021-06-12 09:57] LABS: CALCIUM 8.8 mg/dL (8.5-10.1); CREATININE 2.2 mg/dL (0.6-1.3); MAGNESIUM 1.9 mg/dL (1.8-2.4); POTASSIUM 3.7 mmol/L (3.5-5.1)
--- NOTE | 2021-06-12 10:22 | EKG ---
[place] [address] ELECTROCARDIOGRAM REPORT Name: SORAIDA BELTRAN Room: [address] ADM IN M.R.#: [id number] Admission: 06/08/21 Attend Phys: Emmie eKys Discharge: Date of : 40 Date of Service: 06/12/21 0955 Report #: [id number] THIS REPORT FOR: //name// [facility] Test Date: 2021-06-12 Test Time: 09:55:08 Pat Name: SORAIDA BELTRAN Department: Room: [address] Gender: M Basic Acoustic Analyst: [id number] : 1940 Requested By: Rafa Wright Order Number: [id number] Dong MD: Rafa Wright Measurements Intervals [place] Rate: 71 P: NV: QRS: 8 QRSD: 198 T: 152 QT: 481 QTc: 523 Interpretive Statements Atrial fibrillation Left bundle branch block Compared to ECG 06/10/2021 08:40:31 no change Electronically Signed On 06-12-2021 10:22:26 SLOT SHIFT SUPERVISOR by Rafa Wright [email or web address] <ELECTRONICALLY SIGNED> By: Rafa Wright MD, [facility] 06/12/21 1022 0955 0955 Rafa Wright MD, [facility] /EPI
[2021-06-13 04:25] VITALS: BP 120/48
[2021-06-13 04:46] LABS: CALCIUM 8.9 mg/dL (8.5-10.1); CREATININE 2.1 mg/dL (0.6-1.3); POTASSIUM 3.6 mmol/L (3.5-5.1)
[2021-06-13 04:47] LABS: HEMATOCRIT 26.4 % (42.0-52.0); HEMOGLOBIN 9.2 gm/dL (14.0-18.0); MCH 32.6 pg (26.0-34.0); MCHC 34.9 g/dL (28.0-37.0); MCV 93.3 fL (80.0-100.0); MPV 8.4 fl. (7.2-11.1); RBC 2.83 mil/uL (4.50-6.00); RDW-CV 15.6 % (10.5-14.5)
[2021-06-13 09:00] VITALS: BP 115/58
--- NOTE | 2021-06-13 09:36 | EKG ---
[place] [address] ELECTROCARDIOGRAM REPORT Name: SORAIDA BELTRAN Room: [address] ADM IN M.R.#: [id number] Admission: 06/08/21 Attend Phys: Emmie Keys Discharge: Date of : 40 Date of Service: 06/13/21 0843 Report #: [id number] THIS REPORT FOR: //name// [facility] Test Date: 2021-06-13 Test Time: 08:43:30 Pat Name: SORAIDA BELTRAN Department: Room: [address] Gender: M Seat Pack Inspector: EBONY : 1940 Requested By: Rafa Wright Order Number: [id number] Dong MD: Rafa Wright Measurements Intervals [place] Rate: 69 P: -87 KS: 179 QRS: -24 QRSD: 193 T: 114 QT: 481 QTc: 516 Interpretive Statements Sinus rhythm with first degree av block Left bundle branch block Compared to ECG 06/12/2021 09:55:08 no change Electronically Signed On 06-13-2021 9:35:54 BEEF CATTLE FARMER by Rafa Wright [email or web address] <ELECTRONICALLY SIGNED> By: Rafa Wright MD, FAC 06/13/21 0935 Rafa Wright MD, [facility] /EPI
[2021-06-13 13:02] VITALS: BP 120/48
[2021-06-13 17:19] VITALS: BP 131/58
[2021-06-13 19:50] VITALS: BP 118/52
[2021-06-14 00:16] VITALS: BP 106/48
[2021-06-14 04:00] VITALS: BP 111/50
[2021-06-14 04:42] LABS: HEMOGLOBIN 9.4 gm/dL (14.0-18.0); MCH 32.6 pg (26.0-34.0); MCHC 34.9 g/dL (28.0-37.0); MCV 93.5 fL (80.0-100.0); MPV 8.2 fl. (7.2-11.1); RBC 2.89 mil/uL (4.50-6.00); RDW-CV 15.7 % (10.5-14.5); WBC 5.5 thou/uL (4.0-11.0)
[2021-06-14 05:44] LABS: ALBUMIN 2.6 g/dL (3.4-5.0); CALCIUM 8.9 mg/dL (8.5-10.1); CREATININE 2.1 mg/dL (0.6-1.3); MAGNESIUM 2.1 mg/dL (1.8-2.4); POTASSIUM 3.8 mmol/L (3.5-5.1); TOTAL BILIRUBIN 0.5 mg/dL (<0.1-1.0); TOTAL PROTEIN 6.7 g/dL (6.4-8.2)
[2021-06-14 08:53] VITALS: BP 101/51
[2021-06-14 12:00] VITALS: BP 142/76
[2021-06-14 16:00] VITALS: BP 131/50
[2021-06-14 20:00] VITALS: BP 138/77
[2021-06-15 00:39] VITALS: BP 102/53
[2021-06-15 04:40] VITALS: BP 99/56
[2021-06-15 04:53] LABS: HEMATOCRIT 26.8 % (42.0-52.0); HEMOGLOBIN 9.4 gm/dL (14.0-18.0); MCH 32.5 pg (26.0-34.0); MCHC 35.1 g/dL (28.0-37.0); MCV 92.8 fL (80.0-100.0); MPV 8.7 fl. (7.2-11.1); RBC 2.89 mil/uL (4.50-6.00); RDW-CV 15.9 % (10.5-14.5); WBC 5.8 thou/uL (4.0-11.0)
[2021-06-15 05:17] LABS: CREATININE 2.2 mg/dL (0.6-1.3); POTASSIUM 3.6 mmol/L (3.5-5.1)
[2021-06-15 08:45] VITALS: BP 84/46
[2021-06-15 11:54] VITALS: BP 155/95
[2021-06-15 16:44] VITALS: BP 125/49
[2021-06-15 19:55] VITALS: BP 126/61
[2021-06-16] VITALS (7 sets, daily range): BP systolic 102–120; BP diastolic 44–69
[2021-06-16 07:24] LABS: HEMATOCRIT 28.7 % (42.0-52.0); HEMOGLOBIN 9.7 gm/dL (14.0-18.0); MCH 31.9 pg (26.0-34.0); MCHC 33.8 g/dL (28.0-37.0); MCV 94.4 fL (80.0-100.0); MPV 8.8 fl. (7.2-11.1); RBC 3.04 mil/uL (4.50-6.00); RDW-CV 15.5 % (10.5-14.5); WBC 6.6 thou/uL (4.0-11.0)
[2021-06-16 07:31] LABS: CALCIUM 8.8 mg/dL (8.5-10.1); CREATININE 1.6 mg/dL (0.6-1.3); POTASSIUM 3.5 mmol/L (3.5-5.1)
[2021-06-16] MEDS ORDERED: SORINE 80 MG TA80 M1 PO (12:41)
[2021-06-17 01:23] VITALS: BP 100/53
[2021-06-17 05:23] VITALS: BP 123/75
[2021-06-17 08:16] VITALS: BP 133/63
[2021-06-17 12:00] VITALS: BP 97/50
[2021-06-17 12:07] VITALS: BP 98/51
[2021-06-17 20:00] VITALS: BP 115/47
[2021-06-18] VITALS: BP 109/55
[2021-06-18 05:59] VITALS: BP 130/62
[2021-06-18 08:00] VITALS: BP 137/66
[2021-06-18 12:00] VITALS: BP 113/54
[2021-06-18 20:00] VITALS: BP 107/5
[2021-06-18 23:46] VITALS: BP 113/56
[2021-06-19 04:56] LABS: POTASSIUM 4.1 mmol/L (3.5-5.1)
[2021-06-19 06:45] VITALS: BP 126/64
[2021-06-19 07:51] VITALS: BP 105/57
[2021-06-19 12:00] VITALS: BP 98/48
[2021-06-19 16:00] VITALS: BP 115/49
[2021-06-19 20:00] VITALS: BP 106/48
[2021-06-20 00:48] VITALS: BP 132/53
[2021-06-20 04:00] VITALS: BP 87/54
[2021-06-20 08:11] VITALS: BP 136/63
[2021-06-20 12:16] VITALS: BP 92/44
[2021-06-20 17:02] VITALS: BP 107/47
[2021-06-20 20:00] VITALS: BP 145/58
[2021-06-21] VITALS (7 sets, daily range): BP systolic 105–171; BP diastolic 47–84
[2021-06-21 04:51] LABS: CALCIUM 9.2 mg/dL (8.5-10.1); POTASSIUM 3.9 mmol/L (3.5-5.1)
--- NOTE | 2021-06-21 12:11 | EKG ---
[place] [address] ELECTROCARDIOGRAM REPORT Name: SORAIDA BELTRAN Room: [address] ADM IN M.R.#: [id number] Admission: 06/08/21 Attend Phys: Emmie Keys Discharge: Date of : 40 Date of Service: 06/21/2117 Report #: [id number] THIS REPORT FOR: //name// [facility] Test Date: 2021-06-21 Test Time: 09:17:38 Pat Name: SORAIDA BELTRAN Department: Room: [address] Gender: M Healthcare Market Consultant: BENNY : 1940 Requested By: Blair Thompson Order Number: [id number] Reading MD: Steve Brown Measurements Intervals [place] Rate: 69 P: 0 [place]: 76 QRS: -85 QRSD: 170 T: 82 QT: 442 QTc: 474 Interpretive Statements Ventricular-paced complexes No further analysis attempted due to paced rhythm Compared to ECG 06/13/2021 08:43:30 Sinus rhythm no longer present First degree AV block no longer present Electronically Signed On 06-21-2021 12:11:41 SYSTEMS NAVIGATOR by Steve Brown [email or web address] <ELECTRONICALLY SIGNED> By: Steve Brown MD, FACC 06/21/21 1211 6 6 Steve Brown MD, FACC /EPI
[2021-06-22 04:00] VITALS: BP 114/63
[2021-06-22 08:00] VITALS: BP 133/60
[2021-06-22 11:03] VITALS: BP 100/42
[2021-06-22 16:00] VITALS: BP 140/61
[2021-06-22 20:00] VITALS: BP 152/46
[2021-06-23 00:39] VITALS: BP 130/48
[2021-06-23 04:00] VITALS: BP 137/57
[2021-06-23 05:19] LABS: CALCIUM 9.3 mg/dL (8.5-10.1); CREATININE 1.6 mg/dL (0.6-1.3); POTASSIUM 4.1 mmol/L (3.5-5.1)
[2021-06-23 10:29] VITALS: BP 106/48
[2021-06-23 16:00] VITALS: BP 137/74
[2021-06-23 20:55] VITALS: BP 148/63
[2021-06-24] VITALS (8 sets, daily range): BP systolic 77–183; BP diastolic 37–83
== END 2021-06-24 16:57 | disposition home health service (06) | DRG 291 ==
LOC: M.ERS 11:37 → M.TBA-ER 12:34 → M.2W 12:34 → M.3W 06-23 20:26
PROVIDERS: Emergency Medicine; Internal Medicine; Internal Medicine Cardiovascular Disease; Internal Medicine Nephrology; Registered Nurse; ADMIT Internal Medicine; ATTEND Internal Medicine
DX: I13.0 Hypertensive heart and chronic kidney disease with heart failure and stage 1 through stage 4 chronic kidney disease, or unspecified chronic kidney disease (principal); I50.43 Acute on chronic combined systolic (congestive) and diastolic (congestive) heart failure; N17.0 Acute kidney failure with tubular necrosis; I48.19 Other persistent atrial fibrillation; Z68.41 Body mass index [BMI] 40.0-44.9, adult; Z20.822 Contact with and (suspected) exposure to COVID-19; N40.0 Benign prostatic hyperplasia without lower urinary tract symptoms; M19.90 Unspecified osteoarthritis, unspecified site; E78.5 Hyperlipidemia, unspecified; E11.42 Type 2 diabetes mellitus with diabetic polyneuropathy; E66.01 Morbid (severe) obesity due to excess calories; G89.29 Other chronic pain; I25.10 Atherosclerotic heart disease of native coronary artery without angina pectoris; F03.90 Unspecified dementia, unspecified severity, without behavioral disturbance, psychotic disturbance, mood disturbance, and anxiety; E11.65 Type 2 diabetes mellitus with hyperglycemia; E87.5 Hyperkalemia; G47.33 Obstructive sleep apnea (adult) (pediatric); N18.30 Chronic kidney disease, stage 3 unspecified; G40.909 Epilepsy, unspecified, not intractable, without status epilepticus; D64.9 Anemia, unspecified; I25.5 Ischemic cardiomyopathy; I49.5 Sick sinus syndrome; E11.22 Type 2 diabetes mellitus with diabetic chronic kidney disease; Z85.51 Personal history of malignant neoplasm of bladder; Z86.73 Personal history of transient ischemic attack (TIA), and cerebral infarction without residual deficits; Z98.42 Cataract extraction status, left eye; Z98.41 Cataract extraction status, right eye; Z95.1 Presence of aortocoronary bypass graft; Z95.0 Presence of cardiac pacemaker; Z88.8 Allergy status to other drugs, medicaments and biological substances; Z82.49 Family history of ischemic heart disease and other diseases of the circulatory system; Z87.891 Personal history of nicotine dependence

== ENCOUNTER → 2021-06-08 | Outpatient (CLI) | payer MEDICARE ==
[2021-06-08 10:11] LABS: ALBUMIN 2.7 g/dL (3.4-5.0); CALCIUM 8.7 mg/dL (8.5-10.1); CREATININE 3.5 mg/dL (0.6-1.3); POTASSIUM 5.7 mmol/L (3.5-5.1); TOTAL BILIRUBIN 0.3 mg/dL (<0.1-1.0); TOTAL PROTEIN 6.9 g/dL (6.4-8.2)
== END ==
LOC: M.LAB 09:32
PROVIDERS: ATTEND Internal Medicine Cardiovascular Disease
DX: I25.10 Atherosclerotic heart disease of native coronary artery without angina pectoris (principal); I10 Essential (primary) hypertension; I48.91 Unspecified atrial fibrillation

== ENCOUNTER 2021-07-01 14:23 | Emergency (ER) | payer MEDICARE ==
[~2021-07-01] VITALS: Ht 172.7 cm; Wt 108.9 kg
[2021-07-01 15:50] LABS: URINE BILIRUBIN NEGATIVE (Negative); URINE BLOOD NEGATIVE (Negative); URINE CLARITY CLEAR; URINE COLOR YELLOW; URINE GLUCOSE-RANDOM NEGATIVE (Negative); URINE KETONES NEGATIVE (Negative); URINE LEUKOCYTES 1+ (Negative); URINE NITRITE NEGATIVE (Negative); URINE PROTEIN NEGATIVE (Negative); URINE SPECIFIC GRAVITY 1.015 (1.005-1.030); URINE UROBILINOGEN 0.2 E.U./dl (0.2-1.0)
[2021-07-01 15:59] LABS: SQUAMOUS 0-3 Few /LPF (0-3)
[2021-07-01 16:00] LABS: CASTS None Seen /LPF (None Seen); CRYSTALS None Seen /LPF (None Seen); URINE RBC 0-2 Rare /HPF (0-2); URINE WBC 0-5 Rare /HPF (0-5)
[2021-07-01] MEDS ORDERED: CEFUROXIME500 MG PO (16:12)
[2021-07-01 16:20] VITALS: BP 154/57
== END 2021-07-01 16:20 | disposition home or self-care (01) ==
LOC: M.ERS 14:23
PROVIDERS: Physician Assistant
DX: T83.518A Infection and inflammatory reaction due to other urinary catheter, initial encounter (principal); N39.0 Urinary tract infection, site not specified; L89.151 Pressure ulcer of sacral region, stage 1; E11.9 Type 2 diabetes mellitus without complications; I10 Essential (primary) hypertension; N40.0 Benign prostatic hyperplasia without lower urinary tract symptoms; M19.90 Unspecified osteoarthritis, unspecified site; E78.5 Hyperlipidemia, unspecified; E66.01 Morbid (severe) obesity due to excess calories; Z79.899 Other long term (current) drug therapy; Z88.5 Allergy status to narcotic agent; Z88.6 Allergy status to analgesic agent

== ENCOUNTER 2021-07-04 08:23 | Inpatient (IN) | payer MEDICARE ==
[~2021-07-04] VITALS: Ht 152.4 cm; Wt 113.1 kg
[~2021-07-04 08:23] MED LIST changes: +CEFUROXIME500 MG PO
[2021-07-04 08:34] VITALS: BP 152/76
[2021-07-04 08:52] LABS: ABSOLUTE EOSINOPHILS 0.2 thou/uL (0.0-0.7); ABSOLUTE MONOCYTES 0.4 thou/uL (0.0-1.2); ABSOLUTE NEUTROPHILS 3.2 thou/uL (1.6-8.1); BASOPHILS 0.4 %; EOSINOPHILS 4.9 %; HEMATOCRIT 28.8 % (42.0-52.0); HEMOGLOBIN 9.9 gm/dL (14.0-18.0); LYMPHOCYTES 21.2 %; MCH 32.2 pg (26.0-34.0); MCHC 34.4 g/dL (28.0-37.0); MCV 93.6 fL (80.0-100.0); MONOCYTES 7.3 %; MPV 9.8 fl. (7.2-11.1); NUCLEATED RBCS 0 /100WBC; PLATELET COUNT* 164 thou/uL (150-400); POLYS 66.2 %; RBC 3.08 mil/uL (4.50-6.00); RDW-CV 15.9 % (10.5-14.5); WBC 4.8 thou/uL (4.0-11.0)
[2021-07-04 08:55] LABS: CALCIUM 8.7 mg/dL (8.5-10.1); CREATININE 2.9 mg/dL (0.6-1.3); POTASSIUM 4.5 mmol/L (3.5-5.1)
[2021-07-04 09:05] LABS: APTT 26.8 Seconds (25.0-31.3); INR 1.1; PROTIME 11.3 Seconds (9.20-11.50)
[2021-07-04 09:05] LABS: BE -1.5 mmol/L (-2 to +3); PCO2 33.3 mmHg (35.0-45.0); pH 7.436 (7.340-7.450)
[2021-07-04 09:06] LABS: ALBUMIN 2.8 g/dL (3.4-5.0); TOTAL BILIRUBIN 0.4 mg/dL (<0.1-1.0); TOTAL PROTEIN 7.1 g/dL (6.4-8.2)
[2021-07-04 11:00] VITALS: BP 154/84
[2021-07-04 11:30] VITALS: BP 180/78
--- NOTE | 2021-07-04 16:05 | EKG ---
[place] [address] ELECTROCARDIOGRAM REPORT Name: SORAIDA BELTARN Room: [address] ADM IN .R.#: [id number] Admission: 07/04/21 Attend Phys: Jasmeet Castano Discharge: Date of : 40 Date of Service: 07/04/21 0826 Report #: [id number] THIS REPORT FOR: //name// [facility] Test Date: 2021-07-04 Test Time: 08:26:07 Pat Name: SORAIDA BELTRAN Department: Room: [facility] Gender: M Mobile Paint Specialist: NEELIMA : 1940 Requested By: Bi Llamas Order Number: [id number] MD: Steve Brwon Measurements Intervals [place] Rate: 97 P: ME: QRS: -2 QRSD: 182 T: 172 QT: 439 QTc: 558 Interpretive Statements Atrial fibrillation Left bundle branch block Compared to ECG 06/21/2021 09:17:38 Left bundle-branch block now present Ventricular-paced complex(es) or rhythm no longer present Electronically Signed On 07-04-2021 16:05:03 HEALTH PROMOTION COORDINATOR by Steve Brown [email or web address] <ELECTRONICALLY SIGNED> By: Steve Brown MD, FACC 07/04/21 1605 5 5 Steve Brown MD, FACC /EPI
--- NOTE | 2021-07-04 16:09 | EKG ---
[place] [address] ELECTROCARDIOGRAM REPORT Name: SORAIDA BELTRAN Room: [address] ADM IN M.R.#: [id number] Admission: 07/04/21 Attend Phys: Jasmeet Castano Discharge: Date of : 40 Date of Service: 07/04/21 1444 Report #: [id number] THIS REPORT FOR: //name// [facility] Test Date: 2021-07-04 Test Time: 14:44:07 Pat Name: SORAIDA BELTRAN Department: Room: [address] Gender: M Line Patroller: DIA : 1940 Requested By: Janelle Portillo Order Number: [id number] Dong MD: Steve Brown Measurements Intervals [place] Rate: 91 P: MA: QRS: 33 QRSD: 170 T: 209 QT: 410 QTc: 505 Interpretive Statements Atrial fibrillation Left bundle branch block Compared to ECG 07/04/2021 08:26:07 No significant changes Electronically Signed On 07-04-2021 16:09:18 ENVIRONMENTAL SAMPLER by Steve Brown [email or web address] <ELECTRONICALLY SIGNED> By: Steve Brown MD, [facility] 07/04/21 1609 1444 1444 Steve Brown MD, [facility] /EPI
[2021-07-04 17:15] VITALS: BP 124/59
[2021-07-04 20:29] VITALS: BP 124/61
[2021-07-05 00:30] VITALS: BP 124/47
[2021-07-05 04:00] LABS: HEMOGLOBIN 9.1 gm/dL (14.0-18.0); MCH 32.8 pg (26.0-34.0); MCHC 33.8 g/dL (28.0-37.0); MPV 9.9 fl. (7.2-11.1); RBC 2.79 mil/uL (4.50-6.00); RDW-CV 15.5 % (10.5-14.5); WBC 5.4 thou/uL (4.0-11.0)
[2021-07-05 04:01] LABS: CALCIUM 8.7 mg/dL (8.5-10.1); CREATININE 2.4 mg/dL (0.6-1.3); POTASSIUM 3.9 mmol/L (3.5-5.1)
[2021-07-05 04:35] VITALS: BP 97/55
[2021-07-05 08:00] VITALS: BP 90/51
--- NOTE | 2021-07-05 11:54 | CON ---
[address] [address] CONSULTATION Name: SORAIDA BELTRAN Room: [address] IN .R.#: [id number] Admission: 07/04/21 Attend Phys: Lázaro Ponce Discharge: Date of : 40 Report #: [id number] THIS REPORT FOR: cc: Anjum Purcell MD, Meng MD Arakelov, Alexandr V. MD ~ DATE OF CONSULTATION: 07/04/2021 REQUESTING PHYSICIAN: Dr. Castano. REASON FOR CONSULTATION: Acute kidney injury. HISTORY OF PRESENT ILLNESS: The patient is a pleasant 80-year-old gentleman whose medical history significant for diabetes mellitus type 2, hypertension, chronic kidney disease stage 3B, history of BPH and history of bladder cancer, history of CVA, history of small cell lymphoma, history of recurrent CHF exacerbations, history of coronary artery disease, presents with complaints of increased lower extremity edema, shortness of breath and gained about 6-7 pound of weight. He was recently in the hospital and he was diuresed. He was at that time admitted with fluid overload. He was feeling better, went home about 10 days ago and suddenly gained 7 pounds over the weekend and was readmitted with CHF exacerbation. His creatinine went up to 2.9. SOCIAL HISTORY: No tobacco, no alcohol abuse. FAMILY HISTORY: Positive for diabetes, hypertension. MEDICATIONS: Reviewed. He was on torsemide at home. REVIEW OF SYSTEMS: Positive for symptoms as I mentioned earlier. PHYSICAL EXAMINATION: GENERAL: He is awake, alert, oriented, no acute distress now. VITAL SIGNS: Reviewed. NECK: Fatty. LUNGS: Decreased air movements at bases. CARDIOVASCULAR: Regular rate. ABDOMEN: Soft, obese. EXTREMITIES: Lower extremities, with 3+ edema. ASSESSMENT: 1. Congestive heart failure exacerbation with fluid retention. 2. Diabetes mellitus type 2. 3. Acute kidney injury. 4. Chronic kidney disease, stage 3B. [place] [address] CONSULTATION Name: LADARIUSNICKSORAIDA Klein Room: [address]#: [id number] Admission: 07/04/21 Attend Phys: Lázaro Ponce Discharge: Date of : 40 Report #: [id number] 5. History of BPH. 6. Bladder cancer. PLAN: At this point, the patient is fluid overloaded, so we will need to diurese him. During previous admission when we diuresed him, his renal function actually improved. I will put him on Lasix 40 mg IV twice a day and we will monitor his renal function very carefully. <ELECTRONICALLY SIGNED> By: Gino Theodore MD 07/05/21 1154 1317 1413Alexandr Fabian Theodore MD /nt
[2021-07-05 12:00] VITALS: BP 117/31
[2021-07-05 16:00] VITALS: BP 134/65
[2021-07-05 20:09] VITALS: BP 143/70
[2021-07-06 00:14] VITALS: BP 125/53
[2021-07-06 04:00] VITALS: BP 200/62
[2021-07-06 04:30] LABS: ALBUMIN 2.4 g/dL (3.4-5.0); CALCIUM 8.5 mg/dL (8.5-10.1); CREATININE 1.8 mg/dL (0.6-1.3); POTASSIUM 3.6 mmol/L (3.5-5.1); TOTAL BILIRUBIN 0.4 mg/dL (<0.1-1.0); TOTAL PROTEIN 6.1 g/dL (6.4-8.2)
[2021-07-06 08:15] VITALS: BP 114/46
[2021-07-06 12:00] VITALS: BP 95/50
[2021-07-06 16:00] VITALS: BP 126/66
[2021-07-06 19:45] VITALS: BP 139/60
[2021-07-07 00:47] VITALS: BP 133/57
[2021-07-07 04:23] VITALS: BP 122/44
[2021-07-07 05:14] LABS: ALBUMIN 2.5 g/dL (3.4-5.0); CALCIUM 8.8 mg/dL (8.5-10.1); CREATININE 1.6 mg/dL (0.6-1.3); POTASSIUM 3.8 mmol/L (3.5-5.1); TOTAL BILIRUBIN 0.6 mg/dL (<0.1-1.0); TOTAL PROTEIN 6.3 g/dL (6.4-8.2)
[2021-07-07 08:00] VITALS: BP 128/46
--- NOTE | 2021-07-07 11:01 | EKG ---
[place] [address] ELECTROCARDIOGRAM REPORT Name: RUBYSORAIDA Ernie Room: [address] ADM IN M.R.#: [id number] Admission: 07/04/21 Attend Phys: Jasmeet Castano Discharge: Date of : 40 Date of Service: 07/06/21 1608 Report #: [id number] THIS REPORT FOR: //name// [facility] Test Date: 2021-07-06 Test Time: 16:08:48 Pat Name: SORAIDA BELTRAN Department: Room: [address] Gender: M Lineman A Class: KELLY : 1940 Requested By: Janelle Portillo Order Number: [id number] Dong MD: Steve Brown Measurements Intervals [place] Rate: 86 P: [place]: QRS: 46 QRSD: 162 T: 224 QT: 405 QTc: 485 Interpretive Statements Afib/flut and V-paced complexes No further rhythm analysis attempted due to paced rhythm IVCD, consider atypical LBBB Compared to ECG 07/04/2021 14:44:07 No significant changes Electronically Signed On 07-07-2021 11:01:04 STITCH BONDER MACHINE OPERATOR HELPER by Steve Brown [email or web address] <ELECTRONICALLY SIGNED> By: Steve Brown MD, FACC 07/07/21 1101 1608 1608 Steve Brown MD, FAC /EPI
[2021-07-07 12:40] VITALS: BP 121/53
[2021-07-07] MEDS ORDERED: PACERONE 200 M200 M1 PO (13:08)
[2021-07-07] MEDS ORDERED: CARVEDILOL3.125 MG PO (13:08)
[2021-07-07] MEDS ORDERED: DEMADEX20 MG PO (13:08)
[2021-07-07] MEDS ORDERED: ELIQUIS5 MG PO (13:08)
[2021-07-07 15:07] VITALS: BP 121/53
== END 2021-07-07 15:30 | disposition home health service (06) | DRG 291 ==
LOC: M.ERS 08:23 → M.ORTHSURG 09:39 → M.TBA-ER 09:39 → M.2W 09:39 → M.ORTHSURG 07-06 06:56
PROVIDERS: Emergency Medicine; Internal Medicine Nephrology; ADMIT Internal Medicine; ATTEND Internal Medicine
DX: I13.0 Hypertensive heart and chronic kidney disease with heart failure and stage 1 through stage 4 chronic kidney disease, or unspecified chronic kidney disease (principal); I50.43 Acute on chronic combined systolic (congestive) and diastolic (congestive) heart failure; J96.21 Acute and chronic respiratory failure with hypoxia; N17.0 Acute kidney failure with tubular necrosis; N18.4 Chronic kidney disease, stage 4 (severe); Z68.42 Body mass index [BMI] 45.0-49.9, adult; N40.0 Benign prostatic hyperplasia without lower urinary tract symptoms; M19.90 Unspecified osteoarthritis, unspecified site; E78.5 Hyperlipidemia, unspecified; G89.29 Other chronic pain; I25.5 Ischemic cardiomyopathy; E66.01 Morbid (severe) obesity due to excess calories; I48.0 Paroxysmal atrial fibrillation; E11.42 Type 2 diabetes mellitus with diabetic polyneuropathy; D64.9 Anemia, unspecified; E11.22 Type 2 diabetes mellitus with diabetic chronic kidney disease; G47.33 Obstructive sleep apnea (adult) (pediatric); Z20.822 Contact with and (suspected) exposure to COVID-19; I95.9 Hypotension, unspecified; Z95.0 Presence of cardiac pacemaker; Z85.51 Personal history of malignant neoplasm of bladder; Z86.73 Personal history of transient ischemic attack (TIA), and cerebral infarction without residual deficits; Z98.42 Cataract extraction status, left eye; Z98.41 Cataract extraction status, right eye; Z95.1 Presence of aortocoronary bypass graft; Z88.8 Allergy status to other drugs, medicaments and biological substances; Z87.891 Personal history of nicotine dependence

== ENCOUNTER → 2021-07-21 | Outpatient (CLI) | payer MEDICARE ==
[2021-07-21] VITALS (12 sets, daily range): BP systolic 80–131; BP diastolic 37–64
[~2021-07-21] MED LIST changes: +ADULT LOW DOSE81 MG PO; +CARVEDILOL3.125 MG PO; +CHOLECALCIFEROL PO; +DOCUSATE SODIU100 MG PO; +FLOMAX0.4 MG PO; +MULTI FOR HIM1 EACH PO; +ROXICODONE5 M2 PO; +VITAMIN B-121000 MCG PO
[2021-07-21 09:17] LABS: HEMATOCRIT 30.2 % (42.0-52.0); HEMOGLOBIN 10.1 gm/dL (14.0-18.0); MCHC 33.4 g/dL (28.0-37.0); MCV 95.9 fL (80.0-100.0); MPV 8.9 fl. (7.2-11.1); RBC 3.15 mil/uL (4.50-6.00); WBC 4.1 thou/uL (4.0-11.0)
[2021-07-21 09:27] LABS: CALCIUM 8.9 mg/dL (8.5-10.1); CREATININE 2.1 mg/dL (0.6-1.3); POTASSIUM 3.9 mmol/L (3.5-5.1)
[2021-07-21 09:32] LABS: ALBUMIN 2.9 g/dL (3.4-5.0); TOTAL BILIRUBIN 0.5 mg/dL (<0.1-1.0); TOTAL PROTEIN 7.2 g/dL (6.4-8.2)
[2021-07-21 11:10] LABS: APTT 32.2 Seconds (25.0-31.3); INR 1.2; PROTIME 12.2 Seconds (9.20-11.50)
[2021-07-21 11:34] LABS: ABSOLUTE EOSINOPHILS 0.2 thou/uL (0.0-0.7); ABSOLUTE LYMPHOCYTES 0.9 thou/uL (0.8-5.3); ABSOLUTE MONOCYTES 0.5 thou/uL (0.0-1.2); ABSOLUTE NEUTROPHILS 2.5 thou/uL (1.6-8.1); BASOPHILS 0.7 %; EOSINOPHILS 5.6 %; HEMATOCRIT 30.1 % (42.0-52.0); HEMOGLOBIN 10.1 gm/dL (14.0-18.0); LYMPHOCYTES 20.7 %; MCH 32.3 pg (26.0-34.0); MCHC 33.6 g/dL (28.0-37.0); MCV 96.1 fL (80.0-100.0); MONOCYTES 12.1 %; MPV 9.9 fl. (7.2-11.1); NUCLEATED RBCS 0 /100WBC; PLATELET COUNT* 174 thou/uL (150-400); POLYS 60.9 %; RBC 3.13 mil/uL (4.50-6.00); RDW-CV 17.1 % (10.5-14.5); WBC 4.2 thou/uL (4.0-11.0)
--- NOTE | 2021-07-28 14:13 | CARD ---
[address] [address] CARDIAC CATH REPORT Name: SORAIDA BELTRAN Room: [facility]#: [id number] Admission: 07/21/21 Attend Phys: Blair Thompson MD Discharge: Date of : 40 Report #: [id number] THIS REPORT FOR: cc: Anjum Purcell MD, Meng MD Liston, Michael J. MD [facility] ~ cc: Anjum Purcell MD DATE OF SERVICE: 07/21/2021 CARDIAC PROCEDURE PROCEDURE: DC cardioversion. INDICATION: Recurrent atrial fibrillation. DESCRIPTION OF PROCEDURE: After informed consent was obtained, the patient was brought to the cardiac holding area. The patient was given intravenous Versed and fentanyl for conscious sedation. Once the patient was adequately sedated, he was cardioverted from atrial fibrillation to an atrially paced, ventricularly sensed rhythm. The patient tolerated the procedure well without complication. The patient was discharged uneventfully. IMPRESSION: 1. Recurrent atrial fibrillation. 2. Successful DC cardioversion to atrially paced, ventricularly sensed rhythm. <ELECTRONICALLY SIGNED> By: Blair Thompson MD, FACC 07/28/21 1413 0913 0938Micmani Thompson MD, FAC /
== END | disposition home or self-care (01) ==
LOC: M.LAB 08:38 → M.CL 08:38
PROVIDERS: ATTEND Internal Medicine Cardiovascular Disease
DX: I48.91 Unspecified atrial fibrillation (principal); I11.0 Hypertensive heart disease with heart failure; I50.9 Heart failure, unspecified; E11.9 Type 2 diabetes mellitus without complications; I25.10 Atherosclerotic heart disease of native coronary artery without angina pectoris; G47.33 Obstructive sleep apnea (adult) (pediatric); E78.5 Hyperlipidemia, unspecified; Z98.890 Other specified postprocedural states; Z79.899 Other long term (current) drug therapy; Z79.01 Long term (current) use of anticoagulants; Z88.8 Allergy status to other drugs, medicaments and biological substances

== ENCOUNTER → 2021-08-02 | Outpatient (CLI) | payer MEDICARE | LOC: M.WC 07:27 | PROVIDERS: ATTEND Emergency Medicine Undersea and Hyperbaric Medicine | DX: E11.622 Type 2 diabetes mellitus with other skin ulcer (principal); L89.323 Pressure ulcer of left buttock, stage 3; L89.313 Pressure ulcer of right buttock, stage 3; L98.411 Non-pressure chronic ulcer of buttock limited to breakdown of skin; L84 Corns and callosities; E11.40 Type 2 diabetes mellitus with diabetic neuropathy, unspecified; E78.5 Hyperlipidemia, unspecified; E66.9 Obesity, unspecified; G20 Parkinson's disease; G47.30 Sleep apnea, unspecified; I11.0 Hypertensive heart disease with heart failure; I50.9 Heart failure, unspecified; I25.10 Atherosclerotic heart disease of native coronary artery without angina pectoris; N40.0 Benign prostatic hyperplasia without lower urinary tract symptoms; M19.90 Unspecified osteoarthritis, unspecified site; Z85.51 Personal history of malignant neoplasm of bladder; Z85.828 Personal history of other malignant neoplasm of skin; Z87.891 Personal history of nicotine dependence; Z95.0 Presence of cardiac pacemaker; Z68.39 Body mass index [BMI] 39.0-39.9, adult; Z86.73 Personal history of transient ischemic attack (TIA), and cerebral infarction without residual deficits ==

== ENCOUNTER → 2021-08-16 | Outpatient (CLI) | payer MEDICARE | LOC: M.WC 08:57 | PROVIDERS: ATTEND Surgery | DX: E11.622 Type 2 diabetes mellitus with other skin ulcer (principal); L89.323 Pressure ulcer of left buttock, stage 3; L89.313 Pressure ulcer of right buttock, stage 3; L98.411 Non-pressure chronic ulcer of buttock limited to breakdown of skin; L84 Corns and callosities; E11.40 Type 2 diabetes mellitus with diabetic neuropathy, unspecified; E78.5 Hyperlipidemia, unspecified; E66.9 Obesity, unspecified; G20 Parkinson's disease; G47.30 Sleep apnea, unspecified; I11.0 Hypertensive heart disease with heart failure; I50.9 Heart failure, unspecified; I25.10 Atherosclerotic heart disease of native coronary artery without angina pectoris; N40.0 Benign prostatic hyperplasia without lower urinary tract symptoms; M19.90 Unspecified osteoarthritis, unspecified site; Z85.51 Personal history of malignant neoplasm of bladder; Z85.828 Personal history of other malignant neoplasm of skin; Z87.891 Personal history of nicotine dependence; Z95.0 Presence of cardiac pacemaker; Z68.39 Body mass index [BMI] 39.0-39.9, adult; Z86.73 Personal history of transient ischemic attack (TIA), and cerebral infarction without residual deficits ==

== ENCOUNTER → 2021-08-30 | Outpatient (CLI) | payer MEDICARE ==
[2021-08-30 12:13] VITALS: BP 130/44
[2021-08-30 12:48] LABS: HEMATOCRIT 31.3 % (42.0-52.0); HEMOGLOBIN 10.4 gm/dL (14.0-18.0); MCH 31.7 pg (26.0-34.0); MCHC 33.3 g/dL (28.0-37.0); MCV 95.1 fL (80.0-100.0); MPV 9.3 fl. (7.2-11.1); RBC 3.29 mil/uL (4.50-6.00); RDW-CV 17.4 % (10.5-14.5); WBC 4.3 thou/uL (4.0-11.0)
[2021-08-30 13:05] LABS: CREATININE 2.1 mg/dL (0.6-1.3); POTASSIUM 4.5 mmol/L (3.5-5.1)
[2021-08-30 13:10] LABS: ALBUMIN 2.8 g/dL (3.4-5.0); TOTAL BILIRUBIN 0.6 mg/dL (<0.1-1.0); TOTAL PROTEIN 7.5 g/dL (6.4-8.2)
[2021-08-30 14:17] VITALS: BP 139/77
[2021-08-30 14:19] VITALS: BP 139/77
[2021-08-30 14:22] VITALS: BP 140/67
[2021-08-30 14:31] VITALS: BP 108/54
--- NOTE | 2021-09-01 13:43 | CARD ---
[address] [address] CARDIAC CATH REPORT Name: SORAIDA BELTRAN Room: [facility]#: [id number] Admission: 08/30/21 Attend Phys: Blair Thompson MD Discharge: Date of : 40 Report #: [id number] THIS REPORT FOR: cc: Anjum Purcell MD, Meng MD Liston, Michael J. MD [facility] ~ cc: Anjum Purcell MD DATE OF SERVICE: 08/30/2021 PROCEDURE: DC cardioversion. INDICATION: Recurrent atrial fibrillation. DESCRIPTION OF PROCEDURE: After informed consent was obtained, the patient was brought to the cardiac holding area. The patient was placed on the teletypesetter monitor. Defibrillator pads were attached in a front back position. His pacemaker was interrogated to verify underlying atrial fibrillation with ventricular pacing. The patient was given 5 mg of fentanyl and 2 mg of intravenous Versed for conscious sedation. Once the patient was adequately sedated, he was cardioverted to an atrially sensed ventricularly paced rhythm with a single biphasic shock of 300 joules. The patient tolerated the procedure well and without complication. IMPRESSION: 1. Recurrent atrial fibrillation. 2. Successful direct-current cardioversion to an atrially sensed ventricularly paced rhythm. <ELECTRONICALLY SIGNED> By: Blair Thompson MD, FAC 09/01/21 1343 1326 1339[place] Kvng Thompson MD, FACC /nt
== END | disposition home or self-care (01) ==
LOC: M.CL 11:19
PROVIDERS: ATTEND Internal Medicine Cardiovascular Disease
DX: I48.91 Unspecified atrial fibrillation (principal); I13.0 Hypertensive heart and chronic kidney disease with heart failure and stage 1 through stage 4 chronic kidney disease, or unspecified chronic kidney disease; E11.22 Type 2 diabetes mellitus with diabetic chronic kidney disease; N18.9 Chronic kidney disease, unspecified; I50.30 Unspecified diastolic (congestive) heart failure; I25.10 Atherosclerotic heart disease of native coronary artery without angina pectoris; E78.5 Hyperlipidemia, unspecified; G47.33 Obstructive sleep apnea (adult) (pediatric); Z20.822 Contact with and (suspected) exposure to COVID-19; Z98.890 Other specified postprocedural states; Z79.899 Other long term (current) drug therapy; Z88.8 Allergy status to other drugs, medicaments and biological substances